=== PATIENT | male | born 1945 | race Caucasian/White ===

== ENCOUNTER → 2016-06-20 | Outpatient (CLI) | payer BC, MEDICARE ==
[~2016-06-20] MED LIST: ACET325T96 PO; ALPHTAB9 PO; AMLO-114 PO; AMX500 PO; ASPI81TA28 PO; ATOR-24 PO; ATV5 PO; BSP15 PO; BXN500 PO; CARB25TA12 PO; CHOL20007 PO; CLC100 PO; COEN150C PO; DSY/150 PO; DSY50 PO; FLM4 PO; GABA-113 PO; GABA1CAP4 PO; GLC/500 PO; LAMO1TAB21 PO; LAMO200T38 PO; LDDP5 TD; LOSA100T65 PO; LTD40 PO; MELA3CAP PO; METH4PAK PO; METO1TAB69 PO; METO1TAB71 PO; MRLP17X PO; MULT-506 PO; NRN300 PO; NRN600 PO; NRV/10 PO; OMEG10007 PO; OXYC-57 PO; PRT40 PO; RISP2TAB22 PO; ROPI2TAB6 PO; RSP3 PO; SYN50 PO; TPM/50 PO; TRAZ100T29 PO
[2016-06-20 18:16] LABS: BLOOD UREA NITROGEN 17 mg/dl (7-18); BUN/CREATININE RATIO 11.6 (10-20); CALCIUM 9.5 mg/dl (8.5-10.1); CARBON DIOXIDE 28 mmol/L (21-32); CHLORIDE 106 mmol/L (98-107); GLUCOSE 94 mg/dl (70-99); POTASSIUM 4.1 mmol/L (3.5-5.1); SODIUM 142 mmol/L (136-145)
[2016-06-20 18:20] LABS: CHOLESTEROL 131 mg/dl (0-200); CHOLESTEROL/HDL RATIO 2.8; HDL CHOLESTEROL 46 mg/dl; LDL CHOLESTEROL CALCULATED 64 mg/dl; TRIGLYCERIDES 104 mg/dl (0-150); VERY LOW DENSITY LIPOPROT CALC 21 mg/dl
[2016-06-21 06:08] LABS: ESTIMATED AVERAGE GLUCOSE 117 mg/dl; HA1C FLAG Normal (Normal)
== END | disposition home or self-care (01) ==
LOC: C.LABBFT 13:38
PROVIDERS: ATTEND Internal Medicine
DX: N20.0 Calculus of kidney (principal); E11.42 Type 2 diabetes mellitus with diabetic polyneuropathy

== ENCOUNTER → 2016-07-21 | Outpatient (CLI) | payer MEDICARE | END | disposition home or self-care (01) | LOC: C.LAB 13:54 | PROVIDERS: ATTEND Internal Medicine | DX: R41.82 Altered mental status, unspecified (principal) ==

== ENCOUNTER → 2016-09-14 | Outpatient (CLI) | payer MEDICARE ==
[~2016-09-14] MED LIST changes: +METO-649 PO; +METO100T44 PO; -METO1TAB69 PO; -METO1TAB71 PO
[2016-09-18 17:57] LABS: ALBUMIN 4.5 G/DL (3.8-4.8); GAMMA GLOBULIN 0.8 G/DL (0.8-1.7); TOTAL PROTEIN 7.2 G/DL (6.2-8.3)
--- NOTE | 2016-10-07 08:33 | CODING QUERY MEDICAL NECESSITY ---
CQSUPPORTING DIAGNOSIS NEEDED A supporting diagnosis is required for the test/procedure performed on this patient in order for us to be reimbursed by the patient's insurance. Please provide a supporting diagnosis for the following test/procedure listed below next to the test name along with your signature. *If there is no additional diagnosis for this patient that would support the following test/procedure please document that below next to the test/procedure. Test(s)/Procedure(s) that require a supporting diagnosis: DOS 09/14/16 SERUM IRON STUDY SCREENING SEXUALLY TRANSMITTED DISEASE Provider Signature: Date: Thank you Annabelle Andres Health Information Management Once completed, please kindly fax back to [phone] For questions please call [phone]
== END | disposition home or self-care (01) ==
LOC: C.LABBFT 15:26
PROVIDERS: ATTEND Psychiatry & Neurology Neurology
DX: R26.9 Unspecified abnormalities of gait and mobility (principal); R41.3 Other amnesia; G25.81 Restless legs syndrome

== ENCOUNTER → 2016-10-02 | Outpatient (CLI) | payer MEDICARE ==
--- NOTE | 2016-10-02 15:27 | DIAGNOSTIC IMAGING REPORT ---
MRI OF THE BRAIN WITHOUT CONTRAST CLINICAL HISTORY: GATE DISTURBANCE, MEMORY CHANGES COMPARISON STUDY: None. FINDINGS: Sagittal T1, axial diffusion, proton density and T2 weighted axial, coronal FLAIR, and axial T1-weighted images were acquired. Imaging was performed in a 0.7 Alize open MRI scanner. No intra or extra-axial mass lesions are visualized Axial diffusion-weighted images reveal no evidence of acute or subacute infarction. There is no evidence of ventricular dilatation. Proton density T2-weighted and FLAIR images reveal scattered foci of increased T2 signal within the white matter, likely on a small vessel basis. There are no abnormal flow voids. There are inflammatory changes within the right maxillary sinus. IMPRESSION: 1. No acute intracranial findings 2. No evidence of intracranial mass 3. No evidence of acute or subacute infarction 4. Inflammatory changes within the right maxillary sinus. Electronically signed by: Homer Alonso M.D. 10/02/2016 3:26 PM Dictated Date/Time: 10/02/2016 3:22 PM
== END | disposition home or self-care (01) ==
LOC: C.OPENMRI 14:30
PROVIDERS: ATTEND Psychiatry & Neurology Neurology
DX: R26.9 Unspecified abnormalities of gait and mobility (principal); R41.3 Other amnesia

== ENCOUNTER 2016-10-03 12:02 | Observation (INO) | payer MEDICARE, OTHER ==
[~2016-10-03] VITALS: Ht 170.2 cm; Wt 99.0 kg
[~2016-10-03 12:02] MED LIST changes: -ACET325T96 PO; -AMX500 PO; -ATV5 PO; -BSP15 PO; -BXN500 PO; -CARB25TA12 PO; -CLC100 PO; -DSY/150 PO; -FLM4 PO; -GABA-113 PO; -GABA1CAP4 PO; -LAMO200T38 PO; -LDDP5 TD; -MELA3CAP PO; -METH4PAK PO; -METO-649 PO; -MRLP17X PO; -NRV/10 PO; -OXYC-57 PO; -PRT40 PO; -RISP2TAB22 PO; -ROPI2TAB6 PO; -RSP3 PO; -TRAZ100T29 PO
[2016-10-03] MEDS ORDERED: ONDANSETRON INJ 2 MG/ML 2 ML VIAL IV STA (12:31)
[2016-10-03] MEDS ORDERED: MoRPHine SULFATE 4 MG/ML 1 ML CARP\\VIAL IV STA ×2 (12:31→16:29)
[2016-10-03 12:52] LABS: BASO % 0.4 %; BASO ABS # 0.03 K/uL (0-0.2); COMPLETE YES; EOS % 1.2 %; HEMATOCRIT 46.6 % (42-52); IG% 0.3 %; LYMPH % 19.5 %; LYMPH ABS # 1.44 K/uL (1.2-3.4); MEAN CELL VOLUME 86.1 fL (80-100); MEAN CORPUSCULAR HEMOGLOBIN 28.3 pg (25-34); MEAN CORPUSCULAR HGB CONC 32.8 g/dl (32-36); MEAN PLATELET VOLUME 7.9 fL (7.4-10.4); MONO % 9.7 %; NEUT % 68.9 %; PLATELET COUNT 165 K/uL (130-400); RED BLOOD COUNT 5.41 M/uL (4.7-6.1); WHITE BLOOD COUNT 7.39 K/uL (4.8-10.8)
[2016-10-03 13:09] LABS: BUN/CREATININE RATIO 13.2 (10-20); CALCIUM 9.2 mg/dl (8.5-10.1); CREATININE 1.4 mg/dl (0.60-1.40)
[2016-10-03] MEDS ORDERED: LAMO200T38 PO (13:17)
[2016-10-03] MEDS ORDERED: MELA3CAP PO (13:17)
[2016-10-03] MEDS ORDERED: GABA-113 PO (13:17)
[2016-10-03] MEDS ORDERED: BSP15 PO (13:17)
[2016-10-03] MEDS ORDERED: METO-649 PO (13:17)
[2016-10-03] MEDS ORDERED: TRAZ100T29 PO (13:17)
[2016-10-03] MEDS ORDERED: ROPI2TAB6 PO (13:17)
[2016-10-03] MEDS ORDERED: RISP2TAB22 PO ×2 (13:17)
--- NOTE | 2016-10-03 13:55 | DIAGNOSTIC IMAGING REPORT ---
CT HEAD WITHOUT CONTRAST (CT) CLINICAL HISTORY: Head trauma. Headache. COMPARISON STUDY: MRI the brain dated 10/02/2016 TECHNIQUE: Axial CT of the brain is performed from the vertex to the skull base. IV contrast was not administered for this examination. CT DOSE: 614.27 mGy.cm FINDINGS: No intra or extra-axial mass lesions are visualized. There is no CT evidence of acute cortical infarction. There is no evidence of midline shift. There is no acute hemorrhage. No calvarial fractures are visualized. There are patchy white matter hypodensities likely on a small vessel basis. There is no evidence of pathologic ventricular dilatation. There is a right maxilla sinus air-fluid level. Slight hyperdensity the right lacrimal gland is likely artifactual. IMPRESSION: No acute intracranial findings Electronically signed by: Homer Alonso M.D. 10/03/2016 1:53 PM Dictated Date/Time: 10/03/2016 1:51 PM
--- NOTE | 2016-10-03 13:56 | DIAGNOSTIC IMAGING REPORT ---
THORACIC SPINE CT CT DOSE: HISTORY: Trauma. Pain. eval for fx TECHNIQUE: Multiaxial CT images of the thoracic spine were performed and reformatted in the sagittal and coronal plane without the use of contrast. COMPARISON: None. FINDINGS: No fractures. No subluxation. Paraspinal soft tissues are unremarkable. Interstitial changes posteriorly in the lower lung regions bilaterally. Degenerative changes of posterior elements. No evidence for compression deformity. Degenerative disc changes throughout. IMPRESSION: Degenerative change throughout the entire thoracic region. No acute bony abnormality. Electronically signed by: Braulio Ayon M.D. 10/03/2016 1:54 PM Dictated Date/Time: 10/03/2016 1:52 PM
--- NOTE | 2016-10-03 15:04 | DIAGNOSTIC IMAGING REPORT ---
CT SCAN OF THE LUMBAR SPINE WITHOUT IV CONTRAST CLINICAL HISTORY: Low back pain. COMPARISON STUDY: Radiographs of the lumbar spine dated 09/20/2015. Abdominal CT dated 03/16/2014. TECHNIQUE: CT scan of the lumbar spine is performed from the lower thoracic spine to the sacrum. Images reviewed in the axial, sagittal, and coronal planes. IV contrast was not administered for this examination. CT DOSE: 1958.68 mGy.cm FINDINGS: The skeletal structures are osteopenic. There is no evidence of fracture or malalignment involving the lumbosacral spine. The transverse and spinous processes are intact. Advanced facet arthropathy is seen throughout the lumbar spine. There is no evidence of spondylolysis. No lytic or blastic lesions are seen. Anterior osteophytes are seen throughout. There are also large lateral marginal osteophytes which appear almost completely fused. Lumbar dextrocurvature may be positional. There is moderate to advanced degenerative disc space narrowing seen at all levels. Posterior disc osteophyte complexes are also present at all levels. There is no evidence of large disc herniation. The visualized sacrum and bony pelvis appear intact. Degenerative change and partial fusion is noted involving the sacroiliac joints. There is moderate atherosclerotic calcification of the abdominal aorta. Mild fatty atrophy is noted in the paraspinous musculature. A 1.4 cm left adrenal adenoma is unchanged. IMPRESSION: 1. There is no evidence of fracture or malalignment involving the lumbosacral spine. 2. Osteopenia and spondylotic change as above. Dictated: 10/03/2016 2:07 PM Transcribed: 10/03/2016 3:04 PM [email or web address] Electronically signed by: Lux Jorgensen M.D. 10/03/2016 3:04 PM Dictated Date/Time: 10/03/2016 2:07 PM
[2016-10-03 16:04] VITALS: O2SAT 93; Ht 170.2 cm; Wt 99.0 kg
--- NOTE | 2016-10-03 16:57 | EMERGENCY ROOM VISIT NOTE ---
History Report prepared by Faraz: Rossana Castro Under the Supervision of: Dr. Akin Easley M.D. First contact with patient: 12:21 Chief Complaint: BACK PAIN Stated Complaint: BACK PAIN History of Present Illness The patient is a 70 year old male who presents to the Emergency Room with complaints of persistent upper back pain that began last evening. He currently rates his discomfort as a 10/10 in severity. The patient states that last evening he was walking out of his bathroom and into his bedroom and after he made the [place] around his bed, he lost his balance and fell. He states that he landed on his back. The patient notes bilateral shoulder pain today, noting that his right is more painful than his left. He states that he is experiencing upper back pain between his shoulders, but denies any lower back pain. The patient states that his pain is worsened with movement. He denies any headache, neck pain, numbness or weakness in the extremities, or hip pain. The patient denies any difficulty moving his arms. He denies being on any blood thinners. The patient denies any depression or suicidal ideation. Source of History: patient Onset: last evening Position: back (upper) Symptom Intensity: 10/10 Timing: other (persistent) Modifying Factors (Worsening): movement Associated Symptoms: No headache, No neck pain, No numbness Note: Associated Symptoms: bilateral shoulder pain. Review of Systems See HPI for pertinent positives & negatives. A total of 10 systems reviewed and were otherwise negative. Past Medical & Surgical Medical Problems: (1) Diabetes (2) HTN (hypertension) (3) Hyperlipidemia (4) Suicide attempt by acetaminophen overdose Family History Patient reports no known family medical history. Social History Smoking Status: Former Smoker Alcohol Use: none Drug Use: none Housing Status: assisted living Occupation Status: retired Current/Historical Medications Scheduled Amlodipine (Norvasc), 10 MG PO QAM Atorvastatin (Lipitor), 40 MG PO QPM Buspirone HCl (Buspirone HCl), 15 MG PO TID Gabapentin (Gabapentin), 600 MG PO HS Gabapentin (Neurontin), 300 MG PO TID Lamotrigine (Lamictal), 200 MG PO BID Levothyroxine Sodium (Synthroid), 50 MCG PO QAM Losartan Potassium (Cozaar), 100 MG PO QAM Melatonin (Melatonin), 3 MG PO HS Metoprolol Succinate (Toprolxl (Toprol-Xl), 200 MG PO DAILY Multivitamin (Multivitamin), 1 TAB PO QAM Risperidone (Risperdal), 2 MG PO QAM Risperidone (Risperdal), 4 MG PO QPM Ropinirole (Requip), 2 MG PO HS Scheduled PRN Trazodone HCl (Trazodone HCl), 50 MG PO HS PRN for INSOMNIA Trazodone Hcl (Trazodone), 100 MG PO HS PRN for Insomnia Allergies Coded Allergies: Pregabalin (Unverified Allergy, Severe, SUICIDAL, 10/03/16) Celecoxib (Verified Allergy, Unknown, RASH, 10/03/16) Ibuprofen (Verified Allergy, Unknown, RASH, 10/03/16) Quetiapine (Unverified Allergy, Unknown, UNKNOWN, 10/03/16) Physical Exam Vital Signs Date Time Temp Pulse Resp B/P Pulse Ox O2 Delivery O2 Flow Rate FiO2 10/03/16 16:24 58 18 121/75 94 Nasal Cannula 2.0 10/03/16 16:12 63 10/03/16 16:04 93 Nasal Cannula 2.0 10/03/16 13:54 58 16 105/67 93 Nasal Cannula 2.0 10/03/16 13:06 88 Room Air 10/03/16 13:06 91 Nasal Cannula 2.0 10/03/16 12:54 60 18 109/65 92 Room Air 10/03/16 12:17 65 10/03/16 12:08 37.1 70 14 127/63 94 Room Air Physical Exam Constitutional: Vital signs reviewed. Eyes: Pupils are equal round reactive to light. Conjunctiva are noninjected. ENT: Pharynx is clear without erythema or exudate. Mucous membranes are moist. Neck supple without meningeal signs. Respiratory: Clear to auscultation bilaterally. Breath sounds are equal bilaterally. Cardiovascular: Regular rate and rhythm. No rubs or gallops. GI: Soft, nondistended and nontender. Bowel sounds are present. Musculoskeletal: No midline tenderness spine, no tenderness to the hips, upper or lower extremities. Mild tenderness to the lower thoracic and upper lumbar spine without step off or deformity. Integumentary: No cyanosis. Neurologic: The patient is awake and alert. Cranial nerves II-XII are intact. Motor is 5 out of 5 all extremities. Sensation is intact to light touch all extremities. Normal speech. No pronator drift. Psychiatric: Normal affect. Medical Decision & Procedures ER Provider Diagnostic Interpretation: CT results as stated below per my review and radiologist interpretation. THORACIC SPINE CT CT DOSE: HISTORY: Trauma. Pain. eval for fx TECHNIQUE: Multiaxial CT images of the thoracic spine were performed and reformatted in the sagittal and coronal plane without the use of contrast. COMPARISON: None. FINDINGS: No fractures. No subluxation. Paraspinal soft tissues are unremarkable. Interstitial changes posteriorly in the lower lung regions bilaterally. Degenerative changes of posterior elements. No evidence for compression deformity. Degenerative disc changes throughout. IMPRESSION: Degenerative change throughout the entire thoracic region. No acute bony abnormality. Electronically signed by: Braulio Ayon M.D. 10/03/2016 1:54 PM Dictated Date/Time: 10/03/2016 1:[address] SCAN OF THE LUMBAR SPINE WITHOUT IV CONTRAST CLINICAL HISTORY: Low back pain. COMPARISON STUDY: Radiographs of the lumbar spine dated 09/20/2015. Abdominal CT dated 03/16/2014. TECHNIQUE: CT scan of the lumbar spine is performed from the lower thoracic spine to the sacrum. Images reviewed in the axial, sagittal, and coronal planes. IV contrast was not administered for this examination. CT DOSE: 1958.68 mGy.cm FINDINGS: The skeletal structures are osteopenic. There is no evidence of fracture or malalignment involving the lumbosacral spine. The transverse and spinous processes are intact. Advanced facet arthropathy is seen throughout the lumbar spine. There is no evidence of spondylolysis. No lytic or blastic lesions are seen. Anterior osteophytes are seen throughout. There are also large lateral marginal osteophytes which appear almost completely fused. Lumbar dextrocurvature may be positional. There is moderate to advanced degenerative disc space narrowing seen at all levels. Posterior disc osteophyte complexes are also present at all levels. There is no evidence of large disc herniation. The visualized sacrum and bony pelvis appear intact. Degenerative change and partial fusion is noted involving the sacroiliac joints. There is moderate atherosclerotic calcification of the abdominal aorta. Mild fatty atrophy is noted in the paraspinous musculature. A 1.4 cm left adrenal adenoma is unchanged. IMPRESSION: 1. There is no evidence of fracture or malalignment involving the lumbosacral spine. 2. Osteopenia and spondylotic change as above. Dictated: 10/03/2016 2:07 PM Transcribed: 10/03/2016 3:04 PM [email or web address] Electronically signed by: Lux Jorgensen M.D. 10/03/2016 3:04 PM Dictated Date/Time: 10/03/2016 2:[address] HEAD WITHOUT CONTRAST (CT) CLINICAL HISTORY: Head trauma. Headache. COMPARISON STUDY: MRI the brain dated 10/02/2016 TECHNIQUE: Axial CT of the brain is performed from the vertex to the skull base. IV contrast was not administered for this examination. CT DOSE: 614.27 mGy.cm FINDINGS: No intra or extra-axial mass lesions are visualized. There is no CT evidence of acute cortical infarction. There is no evidence of midline shift. There is no acute hemorrhage. No calvarial fractures are visualized. There are patchy white matter hypodensities likely on a small vessel basis. There is no evidence of pathologic ventricular dilatation. There is a right maxilla sinus air-fluid level. Slight hyperdensity the right lacrimal gland is likely artifactual. IMPRESSION: No acute intracranial findings Electronically signed by: Homer Alonso M.D. 10/03/2016 1:53 PM Dictated Date/Time: 10/03/2016 1:51 PM Laboratory Results 10/03/16 12:45 Red Blood Count 5.41, Mean Corpuscular Volume 86.1, Mean Corpuscular Hemoglobin 28.3, Mean Corpuscular Hemoglobin Concent 32.8, Mean Platelet Volume 7.9, Neutrophils (%) (Auto) 68.9, Lymphocytes (%) (Auto) 19.5, Monocytes (%) (Auto) 9.7, Eosinophils (%) (Auto) 1.2, Basophils (%) (Auto) 0.4, Neutrophils # (Auto) 5.09, Lymphocytes # (Auto) 1.44, Monocytes # (Auto) 0.72, Eosinophils # (Auto) 0.09, Basophils # (Auto) 0.03 10/03/16 12:45 Test 10/03/16 12:45 White Blood Count 7.39 K/uL (4.8-10.8) Red Blood Count 5.41 M/uL (4.7-6.1) Hemoglobin 15.3 g/dL (14.0-18.0) Hematocrit 46.6 % (42-52) Mean Corpuscular Volume 86.1 fL (80-100) Mean Corpuscular Hemoglobin 28.3 pg (25-34) Mean Corpuscular Hemoglobin Concent 32.8 g/dl (32-36) Platelet Count 165 K/uL (130-400) Mean Platelet Volume 7.9 fL (7.4-10.4) Neutrophils (%) (Auto) 68.9 % Lymphocytes (%) (Auto) 19.5 % Monocytes (%) (Auto) 9.7 % Eosinophils (%) (Auto) 1.2 % Basophils (%) (Auto) 0.4 % Neutrophils # (Auto) 5.09 K/uL (1.4-6.5) Lymphocytes # (Auto) 1.44 K/uL (1.2-3.4) Monocytes # (Auto) 0.72 K/uL (0.11-0.59) Eosinophils # (Auto) 0.09 K/uL (0-0.5) Basophils # (Auto) 0.03 K/uL (0-0.2) RDW Standard Deviation 41.7 fL (36.4-46.3) RDW Coefficient of Variation 13.2 % (11.5-14.5) Immature Granulocyte % (Auto) 0.3 % Immature Granulocyte # (Auto) 0.02 K/uL (0.00-0.02) Anion Gap 6.0 mmol/L (3-11) Est Creatinine Clear Calc Drug Dose 55.0 ml/min Estimated GFR () 58.6 Estimated GFR (Non- 50.5 BUN/Creatinine Ratio 13.2 (10-20) Calcium Level 9.2 mg/dl (8.5-10.1) Laboratory results as reviewed by me. Medications Administered Medications (Trade) Dose Ordered Sig/[place] Route Start Time Stop Time Status Last Admin Dose Admin Morphine Sulfate (MoRPHine SULFATE INJ) 4 mg NOW STAT IV 10/03/16 12:31 10/03/16 12:34 DC 10/03/16 12:53 4 MG Ondansetron HCl (Zofran Inj) 4 mg NOW STAT IV 10/03/16 12:31 10/03/16 12:34 DC 10/03/16 12:52 4 MG Morphine Sulfate (MoRPHine SULFATE INJ) 4 mg NOW STAT IV 10/03/16 16:29 10/03/16 16:37 DC 10/03/16 16:41 4 MG ED Course 1225: The patient was evaluated in room C11B. A complete history and physical exam was performed. 1231: Ordered Zofran Inj 4 mg IV, Morphine Sulfate 4 mg IV. 1408: I reevaluated the patient and he is feeling better now. He notes only pain with movement. 1452: I reevaluated the patient and he cannot move off of the bed. I discussed all the exam findings with him and I discussed the treatment plan. He verbalized complete understanding and agreement. He will be evaluated for further treatment. 1513: I discussed the patients case with TRICIA Santiago. He is going to evaluate the patient for further treatment. Medical Decision This is a 70-year-old male who presents with back pain after a mechanical fall yesterday. Differential diagnosis includes strain, compression fracture, pathologic fracture, intervertebral disc disease, spinal stenosis. I did perform a limited focused review of portions of the patient's old chart on the electronic medical record. The patient was admitted in November of last year for an intentional overdose Ambien and Wheeler. He has a history of bipolar disorder. I did evaluate the patient as noted above. The patient had a mechanical fall yesterday. He is presenting with pain to his back and difficulty ambulating. IV access was established. I did treat him with IV morphine and Zofran. I did order and review the patient's blood work as noted in the electronic medical record. I did order a CT of the head and spine. I did review the images myself as well as the radiology report as described above. There is no evidence of intracranial hemorrhage. There is no evidence of acute fracture or dislocation. I did attempt to ambulate the patient but he was unable. Any type of movement made his pain much worse. I did talk to the patient about placement at [facility] but the case management assistant stated that he could not go to [facility]. He will therefore be hospitalized for pain control and further care. I did discuss the case with the hospitalist. Consults Time Called: [phone] Consulting Physician: TRICIA Santiago Returned Call: [phone] I discussed the patients case with TRICIA Santiago. He is going to evaluate the patient for further treatment. Impression Primary Impression: Low back pain Additional Impressions: Fall Ambulatory dysfunction Acute head injury Scribe Attestation The scribe's documentation has been prepared under my direct and personally reviewed by me in its entirety. I confirm that the note above accurately reflects all work, treatment, procedures, and medical decision making performed by me. Departure Information Dispostion Being Evaluated By Hospitalist Rich Avendaño M.D. (PCP) Problem Qualifiers Primary Impression: Low back pain Chronicity: acute Back pain laterality: midline Sciatica presence: without sciatica Qualified Codes: M54.5 - Low back pain Additional Impressions: Fall Encounter type: initial encounter Qualified Codes: W19.XXXA - Unspecified fall, initial encounter Acute head injury Encounter type: initial encounter Qualified Codes: S09.90XA - Unspecified injury of head, initial encounter
[2016-10-03] MEDS ORDERED: ACETAMINOPHEN 325 MG TAB PO PRN (17:30)
[2016-10-03] MEDS ORDERED: ALUMINUM/MAGNESIUM/SIMETH (MAALOX MAX) 30 ML UDC PO PRN (17:30)
[2016-10-03] MEDS ORDERED: MoRPHine SULFATE 4 MG/ML 1 ML CARP\\VIAL IV PRN (17:30)
[2016-10-03] MEDS ORDERED: POLYETHYLENE (MIRALAX) 17 GM PACK PO PRN (17:30)
[2016-10-03] MEDS ORDERED: ONDANSETRON INJ 2 MG/ML 2 ML VIAL IV PRN (17:30)
--- NOTE | 2016-10-03 17:39 | History and Physical ---
History & Physical Date & Time of Service: October 03, 2016 at 17:08 Chief Complaint: Back Pain Primary Care Physician: Rich Narvaez M.D. History of Present Illness Source: patient 70 male with PMH of spinal stenosis presented to [facility] after falling at home. He has a right upper back pain that started last night, it is sharp in nature, does not radiate, is made worse by movement and he rates the pain as a 10/10 in severity Last night the patient was walking back to his bed after walking to the toilet and slipped and fell on his back. His then phoned the ambulance and had the patient brought to the hospital. Before the fall occurred the patient denies any headache, dizziness, nausea, vomiting, palpitations, chest pain, light headedness or visual changes After the fall the patient denies any urinary incontinence, bowel incontinence, biting of tongue, confusion or altered mental status. He says that throughout the event he was conscious. Over the past year the patient notes he has become progressively weaker in his legs and his mobility has been limited. He was planning on going to physical therapy yesterday, but did not end up going. He did get an MRI as an outpatient yesterday which did not show any acute changes. Past Medical/Surgical History Medical Problems: (1) Diabetes Status: Chronic (2) HTN (hypertension) Status: Chronic (3) Hyperlipidemia Status: Chronic Bipolar Hypothyroidism Spinal Stenosis Restless leg syndrome Family History Patient reports no known family medical history. Social History Smoking Status: Former Smoker (10 year pack history) Drug Use: none Marital Status: Housing status: lives with significant other Occupational Status: retired Multi-Drug Resistant Organisms History of MDRO: No Allergies Coded Allergies: Pregabalin (Unverified Allergy, Severe, SUICIDAL, 10/03/16) Celecoxib (Verified Allergy, Unknown, RASH, 10/03/16) Ibuprofen (Verified Allergy, Unknown, RASH, 10/03/16) Quetiapine (Unverified Allergy, Unknown, UNKNOWN, 10/03/16) Home Medications Scheduled Amlodipine (Norvasc), 10 MG PO QAM Atorvastatin (Lipitor), 40 MG PO QPM Buspirone HCl (Buspirone HCl), 15 MG PO TID Gabapentin (Gabapentin), 600 MG PO HS Gabapentin (Neurontin), 300 MG PO TID Lamotrigine (Lamictal), 200 MG PO BID Levothyroxine Sodium (Synthroid), 50 MCG PO QAM Losartan Potassium (Cozaar), 100 MG PO QAM Melatonin (Melatonin), 3 MG PO HS Metoprolol Succinate (Toprolxl (Toprol-Xl), 200 MG PO DAILY Multivitamin (Multivitamin), 1 TAB PO QAM Risperidone (Risperdal), 2 MG PO QAM Risperidone (Risperdal), 4 MG PO QPM Ropinirole (Requip), 2 MG PO HS Scheduled PRN Trazodone HCl (Trazodone HCl), 50 MG PO HS PRN for INSOMNIA Trazodone Hcl (Trazodone), 100 MG PO HS PRN for Insomnia Review of Systems Constitutional: No chills, No fever, No sweats Eyes: No eye pain, No worsening of vision Respiratory: No cough, No dyspnea on exertion, No shortness of breath, No sputum Cardiovascular: No chest pain, No claudication, No orthopnea, No palpitations Abdomen: No nausea, No pain, No vomiting Musculoskeletal: + joint pain (upper back), + muscle pain (upper back) Neurologic: + balance problems, + numbness/tingling (lower limb numbness bilaterally), + weakness Physical Exam Vital Signs Date Time Temp Pulse Resp B/P Pulse Ox O2 Delivery O2 Flow Rate FiO2 10/03/16 16:24 58 18 121/75 94 Nasal Cannula 2.0 10/03/16 16:12 63 10/03/16 16:04 93 Nasal Cannula 2.0 10/03/16 13:54 58 16 105/67 93 Nasal Cannula 2.0 10/03/16 13:06 88 Room Air 10/03/16 13:06 91 Nasal Cannula 2.0 10/03/16 12:54 60 18 109/65 92 Room Air 10/03/16 12:17 65 10/03/16 12:08 37.1 70 14 127/63 94 Room Air General Appearance: + moderate distress, + pertinent finding (patient laying in bed in a lot of pain, wincing when talking) Head: normocephalic, atraumatic Neck: no adenopathy, no JVD, no carotid bruits, trachea midline Respiratory/Chest: lungs clear, normal breath sounds, no respiratory distress, no accessory muscle use Cardiovascular: regular rate, rhythm, no JVD, normal peripheral pulses Abdomen/GI: normal bowel sounds, non tender, soft Back: + pertinent finding (patient in too much pain to do full spinal exam. pain to superficial palpation over scapula on right side) Extremities/Musculoskelatal: no calf tenderness, normal capillary refill, no pedal edema Neurologic/Psych: alert, oriented x 3, + motor weakness (4/5 power in right and left lower extremity), + sensory deficit (decreased sensation up to mid akers bilaterally) Skin: normal color, warm/dry, no rash Diagnostics Laboratory Results Results Past 24 Hours Test 10/03/16 12:45 Range/Units White Blood Count 7.39 4.8-10.8 K/uL Red Blood Count 5.41 4.7-6.1 M/uL Hemoglobin 15.3 14.0-18.0 g/dL Hematocrit 46.6 42-52 % Mean Corpuscular Volume 86.1 80-100 fL Mean Corpuscular Hemoglobin 28.3 25-34 pg Mean Corpuscular Hemoglobin Concent 32.8 32-36 g/dl Platelet Count 165 130-400 K/uL Mean Platelet Volume 7.9 7.4-10.4 fL Neutrophils (%) (Auto) 68.9 % Lymphocytes (%) (Auto) 19.5 % Monocytes (%) (Auto) 9.7 % Eosinophils (%) (Auto) 1.2 % Basophils (%) (Auto) 0.4 % Neutrophils # (Auto) 5.09 1.4-6.5 K/uL Lymphocytes # (Auto) 1.44 1.2-3.4 K/uL Monocytes # (Auto) 0.72 0.11-0.59 K/uL Eosinophils # (Auto) 0.09 0-0.5 K/uL Basophils # (Auto) 0.03 0-0.2 K/uL RDW Standard Deviation 41.7 36.4-46.3 fL RDW Coefficient of Variation 13.2 11.5-14.5 % Immature Granulocyte % (Auto) 0.3 % Immature Granulocyte # (Auto) 0.02 0.00-0.02 K/uL Sodium Level 142 136-145 mmol/L Potassium Level 4.0 3.5-5.1 mmol/L Chloride Level 108 98-107 mmol/L Carbon Dioxide Level 28 21-32 mmol/L Anion Gap 6.0 3-11 mmol/L Blood Urea Nitrogen 19 7-18 mg/dl Creatinine 1.40 0.60-1.40 mg/dl Est Creatinine Clear Calc Drug Dose 55.0 ml/min Estimated GFR () 58.6 Estimated GFR (Non- 50.5 BUN/Creatinine Ratio 13.2 10-20 Random Glucose 147 70-99 mg/dl Calcium Level 9.2 8.5-10.1 mg/dl Diagnostic Radiology CT head IMPRESSION: No acute intracranial findings CT lumbar spine Anterior osteophytes are seen throughout. There are also large lateral marginal osteophytes which appear almost completely fused. Lumbar dextrocurvature may be positional. There is moderate to advanced degenerative disc space narrowing seen at all levels. Posterior disc osteophyte complexes are also present at all levels. CT thoracic spine Degenerative disc changes throughout. Impression Assessment and Plan 70 M with PMH of spinal stenosis, HTN, HLD, Bipolar, Hypothyroid, RLS and previous diabetes that presented to [facility] after falling at home Patient had CT lumbar and thoracic spine which didn't show any acute pathology but did show significant degenerative changes in the spine throughout. Currently his pain is worse with movement and is most likely musculoskeletal in nature. Back pain - Morphine 4mg Q4 PRN - Zofran 4mg Q4 PRN - Lidocaine patch to affected area - PT/OT consult - Rehab after patient has recovered - Will likely need surgical referral as outpatient for further management of lumbar stenosis and leg weakness HTN - continue amlodipine, losartan, metoprolol HLD - continue atorvastatin Hypothyroidism - continue levothyroxine RLS - continue ropinirole Bipolar - Continue risperidone and lamotrigine - check all scripts for regular dosage Hx of Diabetes - check Hba1c Dispo - Rehab for continued outpatient physical therapist Physician Supervision Note: I interviewed and examined the patient. Discussed with Dr. Justice and agree with findings and plan as documented in the note. Any exceptions or clarifications are listed here: None Documented By: Franklin Crocker back pain - R periscapular after fall leg weakness ongoing chronic ros otherwise negative except for as above vitals noted, appearing moderately uncomfortable, R sided periscapular muscles high tone/tender/decreased ROM - inhibitory pressure and gentle LAS - improved, tissue texture improved/pt tolerated well/possible small improvement in pain, exam otherwise as above a/p fall - appearing mechanical w weakness - PT/OT, ?rehab back pain - fortunately looking muscular - as above, as well as OMT thoracic region somatic dysfunction - OMT as above leg weakness - ?spinal stenosis related. outpt eval for spine (although doubtful surgical candidate) -- if not surgical candidate would then strongly consider decompression therapy and eval for injections otherwise as above Level of Care Med/Surg Advanced Directives Existing Living Will: No Existing Power of Sales Clerk Food: No VTE Prophylaxis VTE Risk Assessment Done? Y/N: Yes Risk Level: Moderate Given or contraindicated: Enoxaparin (Lovenox)SQ
[2016-10-03] MEDS ORDERED: TRAZODONE HCL 50 MG TAB PO PRN (17:45)
[2016-10-03] MEDS ORDERED: IV FLUIDS COMPLETED PRN (17:45)
[2016-10-03] MEDS: BusPIRone 15 MG TAB PO SCH (21:10)
[2016-10-03] MEDS: ROPINIROLE HCL 1 MG TAB PO SCH (21:11)
[2016-10-03] MEDS: RISPERIDONE 2 MG TAB PO SCH (21:11)
[2016-10-03] MEDS: GABAPENTIN 300 MG CAP PO SCH (21:12)
[2016-10-03] MEDS: GABAPENTIN 600 MG TAB PO SCH (21:13)
[2016-10-03] MEDS: ATORVASTATIN 20 MG TAB PO SCH (21:14)
[2016-10-03] MEDS: ENOXAPARIN 40 MG/0.4 ML SYR SQ SCH (21:15)
[2016-10-03 23:51] VITALS: BP_SYST 109; BP_SYST 120; BP_SYST 123; BP_DIAS 71; BP_DIAS 77; PULSE 59; PULSE 62; TEMP 36.4; O2SAT 95
[2016-10-04] MEDS: TRAZODONE HCL 100 MG TAB PO PRN ×2 (00:15→23:22)
[2016-10-04] MEDS: LEVOTHYROXINE 50 MCG TAB PO SCH (06:03)
[2016-10-04 06:23] LABS: HEMATOCRIT 46.4 % (42-52); MEAN CELL VOLUME 88.4 fL (80-100); MEAN CORPUSCULAR HGB CONC 32.8 g/dl (32-36); MEAN PLATELET VOLUME 8.5 fL (7.4-10.4); PLATELET COUNT 164 K/uL (130-400); RED BLOOD COUNT 5.25 M/uL (4.7-6.1); WHITE BLOOD COUNT 7.33 K/uL (4.8-10.8)
[2016-10-04 07:27] VITALS: BP 114/71; PULSE 63; TEMP 36.9; O2SAT 92
[2016-10-04 07:47] LABS: ESTIMATED AVERAGE GLUCOSE 117 mg/dl; HA1C FLAG Normal (Normal)
[2016-10-04] MEDS: GABAPENTIN 300 MG CAP PO SCH ×3 (08:21→19:17)
[2016-10-04] MEDS: LIDODERM (LIDOCAINE) PATCH 5% TD SCH (08:21)
[2016-10-04] MEDS: BusPIRone 15 MG TAB PO SCH ×3 (08:21→19:16)
[2016-10-04] MEDS: AMLODIPINE BESYLATE 5 MG TAB PO SCH (08:22)
[2016-10-04] MEDS: METOPROLOL SUCC 50MG EXT REL TAB PO SCH (08:22)
[2016-10-04] MEDS: MULTIVITAMIN TAB PO SCH (08:22)
[2016-10-04] MEDS: LOSARTAN POTASSIUM 50 MG TAB PO SCH (08:22)
[2016-10-04] MEDS: RISPERIDONE 2 MG TAB PO SCH ×2 (08:23→20:32)
--- NOTE | 2016-10-04 08:49 | Family Medicine Progress Note ---
Progress Note Date of Service October 04, 2016. Subjective Pt evaluation today including: conversation w/ patient, physical exam, chart review, conversation w/ cosmetic sales consultant, review of inpatient medication list Pain: well controlled PO Intake: minimal Patient with no acute events overnight Patient able to answer in one word answers. Currently denies any pain in his shoulder. He says the pain comes and goes, and it is currently relieved by morphine when he gets it. We are awaiting physical therapy in order to decide where he will need to be place for rehab Patient denies any fevers, night sweats, chills, shortness of breath, chest pain or palpitations Additional Comments: see notes for ROS Medications Current Inpatient Medications Medications (Trade) Dose Ordered Sig/Catarina Route Start Time Stop Time Status Last Admin Dose Admin Enoxaparin Sodium (Lovenox Inj) 40 mg Q24H SQ 10/03/16 20:00 11/02/16 19:59 10/03/16 21:15 40 MG Acetaminophen (Tylenol Tab) 650 mg Q4H PRN PO 10/03/16 17:30 11/02/16 17:29 Al Hydrox/Mg Hydrox/Simethicone (Maalox Max Susp) 15 ml Q4H PRN PO 10/03/16 17:30 11/02/16 17:29 Magnesium Hydroxide (Milk Of Magnesia Susp) 30 ml Q6H PRN PO 10/03/16 17:30 11/02/16 17:29 Polyethylene (Miralax Powder Packet) 17 gm DAILY PRN PO 10/03/16 17:30 11/02/16 17:29 Ondansetron HCl (Zofran Inj) 4 mg Q6H PRN IV 10/03/16 17:30 11/02/16 17:29 Lidocaine (Lidoderm Patch 5%) 1 patch QAM TD 10/04/16 08:00 11/03/16 08:59 10/04/16 08:21 1 PATCH Miscellaneous (Remove Lidoderm Patch) 1 ea DAILY@21 N/A 10/03/16 21:00 11/02/16 20:59 Morphine Sulfate (MoRPHine SULFATE INJ) 4 mg Q4 PRN IV 10/03/16 17:30 10/17/16 17:29 Amlodipine Besylate (Norvasc Tab) 10 mg QAM PO 10/04/16 08:00 11/03/16 08:59 10/04/16 08:22 10 MG Atorvastatin Calcium (Lipitor Tab) 40 mg QPM PO 10/03/16 21:00 11/02/16 20:59 10/03/16 21:14 40 MG Buspirone HCl (BusPAR TAB) 15 mg TID PO 10/03/16 20:00 11/02/16 20:59 10/04/16 08:21 15 MG Gabapentin (Neurontin Tab) 600 mg HS PO 10/03/16 21:00 11/02/16 20:59 10/03/16 21:13 600 MG Gabapentin (Neurontin Cap) 300 mg TID PO 10/03/16 20:00 11/02/16 20:59 10/04/16 08:21 300 MG Lamotrigine (Lamictal Tab) 200 mg BID PO 10/03/16 20:00 11/02/16 20:59 10/04/16 08:22 200 MG Levothyroxine Sodium (Synthroid Tab) 50 mcg DAILYBB PO 10/04/16 06:30 11/03/16 06:29 10/04/16 06:03 50 MCG Losartan Potassium (coZAAR TAB) 100 mg QAM PO 10/04/16 08:00 11/03/16 08:59 10/04/16 08:22 100 MG Metoprolol Succinate (Toprol Xl Tab) 200 mg DAILY PO 10/04/16 08:00 11/03/16 08:59 10/04/16 08:22 200 MG Multivitamins (Multivitamin Tab) 1 tab QAM PO 10/04/16 08:00 11/03/16 08:59 10/04/16 08:22 1 TAB Risperidone (Risperdal Tab) 2 mg QAM PO 10/04/16 08:00 11/03/16 08:59 10/04/16 08:23 2 MG Risperidone (Risperdal Tab) 4 mg QPM PO 10/03/16 21:00 11/02/16 20:59 10/03/16 21:11 4 MG Ropinirole HCl (Requip Tab) 2 mg HS PO 10/03/16 21:00 11/02/16 20:59 10/03/16 21:11 2 MG Trazodone HCl (Desyrel Tab) 50 mg HS PRN PO 10/03/16 17:45 11/02/16 17:44 Trazodone HCl (Desyrel Tab) 100 mg HS PRN PO 10/03/16 17:45 11/02/16 17:44 10/04/16 00:15 100 MG Miscellaneous (Iv Fluids Completed) 1 ea PRN PRN N/A 10/03/16 17:45 10/03/17 17:44 Objective Vital Signs Date Time Temp Pulse Resp B/P Pulse Ox O2 Delivery O2 Flow Rate FiO2 10/04/16 07:27 36.9 63 20 114/71 92 10/04/16 00:00 Nasal Cannula 2.0 10/03/16 23:51 36.4 59 109/71 95 2.0 62 123/77 62 120/77 10/03/16 20:00 Nasal Cannula 2.0 10/03/16 17:38 58 18 98/62 94 Nasal Cannula 2.0 10/03/16 16:24 58 18 121/75 94 Nasal Cannula 2.0 10/03/16 16:12 63 10/03/16 16:04 93 Nasal Cannula 2.0 10/03/16 13:54 58 16 105/67 93 Nasal Cannula 2.0 10/03/16 13:06 88 Room Air 10/03/16 13:06 91 Nasal Cannula 2.0 10/03/16 12:54 60 18 109/65 92 Room Air 10/03/16 12:17 65 10/03/16 12:08 37.1 70 14 127/63 94 Room Air Physical Exam General Appearance: + mild distress, + pertinent finding (patient lying at 70 degree angle in bed, very slow to respond and with eyes closed, appears sweaty but in no acute distress) Respiratory/Chest: lungs clear, no respiratory distress, no accessory muscle use Cardiovascular: regular rate, rhythm, no JVD, no murmur Extremities: no pedal edema, no calf tenderness, + pertinent finding (pain to palpation at right scapula, patient has right arm in flexed position and is only minimally able to move it) Laboratory Results Results Past 24 Hours Test 10/03/16 12:45 10/04/16 05:35 Range/Units White Blood Count 7.39 7.33 4.8-10.8 K/uL Red Blood Count 5.41 5.25 4.7-6.1 M/uL Hemoglobin 15.3 15.2 14.0-18.0 g/dL Hematocrit 46.6 46.4 42-52 % Mean Corpuscular Volume 86.1 88.4 80-100 fL Mean Corpuscular Hemoglobin 28.3 29.0 25-34 pg Mean Corpuscular Hemoglobin Concent 32.8 32.8 32-36 g/dl Platelet Count 165 164 130-400 K/uL Mean Platelet Volume 7.9 8.5 7.4-10.4 fL Neutrophils (%) (Auto) 68.9 % Lymphocytes (%) (Auto) 19.5 % Monocytes (%) (Auto) 9.7 % Eosinophils (%) (Auto) 1.2 % Basophils (%) (Auto) 0.4 % Neutrophils # (Auto) 5.09 1.4-6.5 K/uL Lymphocytes # (Auto) 1.44 1.2-3.4 K/uL Monocytes # (Auto) 0.72 0.11-0.59 K/uL Eosinophils # (Auto) 0.09 0-0.5 K/uL Basophils # (Auto) 0.03 0-0.2 K/uL RDW Standard Deviation 41.7 43.7 36.4-46.3 fL RDW Coefficient of Variation 13.2 13.4 11.5-14.5 % Immature Granulocyte % (Auto) 0.3 % Immature Granulocyte # (Auto) 0.02 0.00-0.02 K/uL Sodium Level 142 136-145 mmol/L Potassium Level 4.0 3.5-5.1 mmol/L Chloride Level 108 98-107 mmol/L Carbon Dioxide Level 28 21-32 mmol/L Anion Gap 6.0 3-11 mmol/L Blood Urea Nitrogen 19 7-18 mg/dl Creatinine 1.40 0.60-1.40 mg/dl Est Creatinine Clear Calc Drug Dose 55.0 ml/min Estimated GFR () 58.6 Estimated GFR (Non- 50.5 BUN/Creatinine Ratio 13.2 10-20 Random Glucose 147 70-99 mg/dl Calcium Level 9.2 8.5-10.1 mg/dl Estimated Average Glucose 117 mg/dl Hemoglobin A1c 5.7 4.5-5.6 % Assessment and Plan 70 M with PMH of spinal stenosis, HTN, HLD, Bipolar, Hypothyroid, RLS and previous diabetes that presented to [facility] after falling at home Patient had CT lumbar and thoracic spine which didn't show any acute pathology but did show significant degenerative changes in the spine throughout. Currently his pain is worse with movement and is most likely musculoskeletal in nature. Awaiting for PT evaluation before placement of patient to a rehab facility Back pain - Morphine 4mg Q4 PRN - has had one dose. - Zofran 4mg Q4 PRN - Lidocaine patch to affected area - PT/OT consult - ? need for surgical referral as outpatient for further management of lumbar stenosis and leg weakness HTN - continue amlodipine, losartan, metoprolol HLD - continue atorvastatin Hypothyroidism - continue levothyroxine RLS - continue ropinirole Bipolar - Continue risperidone and lamotrigine Hx of Diabetes - HbA1c is 5.7 Dispo - Rehab for continued physical therapy Continued [facility] stay due to: home environment unsafe for pt Reviewed: Pt Seen/Exam by Me History somnolent when visited. unable to answer any questions. Constitutional: denies: fever General Appearance: other (somnolent) Respiratory: lungs clear, no respiratory distress Cardiovascular: regular rate, rhythm Gastrointestinal: normal bowel sounds, non tender, soft Neurologic/Psychiatric: other (somnolent) Skin Characteristics: warm/dry Assessment/Plan I have reviewed the medical record and performed a history and physical examination of this patient today. I have discussed the case with Dr. Justice. The above note reflects my findings, conclusions, and recommendations.
[2016-10-04 14:51] VITALS: BP 82/55; PULSE 63; TEMP 36.6; O2SAT 94
[2016-10-04 15:10] VITALS: BP_SYST 102; BP_SYST 68; BP_DIAS 42; BP_DIAS 62; PULSE 56; PULSE 58; O2SAT 95
[2016-10-04 15:30] VITALS: O2SAT 95
[2016-10-04 15:55] VITALS: BP 101/64; PULSE 58; O2SAT 95
[2016-10-04] MEDS: ENOXAPARIN 40 MG/0.4 ML SYR SQ SCH (19:17)
[2016-10-04] MEDS: ATORVASTATIN 20 MG TAB PO SCH (20:31)
[2016-10-04] MEDS: ROPINIROLE HCL 1 MG TAB PO SCH (20:31)
[2016-10-04] MEDS: GABAPENTIN 600 MG TAB PO SCH (20:32)
[2016-10-05 00:22] VITALS: BP 92/55; PULSE 52; TEMP 36.4; O2SAT 90
[2016-10-05] MEDS: LEVOTHYROXINE 50 MCG TAB PO SCH (06:03)
[2016-10-05 07:54] VITALS: BP 121/72; PULSE 56; TEMP 36.3; O2SAT 93
[2016-10-05 08:30] VITALS: PULSE 65; O2SAT 91
[2016-10-05] MEDS: BusPIRone 15 MG TAB PO SCH ×3 (08:40→20:15)
[2016-10-05] MEDS: LIDODERM (LIDOCAINE) PATCH 5% TD SCH (08:40)
[2016-10-05] MEDS: LOSARTAN POTASSIUM 50 MG TAB PO SCH (08:41)
[2016-10-05] MEDS: AMLODIPINE BESYLATE 5 MG TAB PO SCH (08:42)
[2016-10-05] MEDS: GABAPENTIN 300 MG CAP PO SCH ×3 (08:42→20:15)
[2016-10-05] MEDS: MULTIVITAMIN TAB PO SCH (08:42)
[2016-10-05] MEDS: RISPERIDONE 2 MG TAB PO SCH ×2 (08:43→20:15)
[2016-10-05] MEDS: METOPROLOL SUCC 50MG EXT REL TAB PO SCH (08:43)
--- NOTE | 2016-10-05 11:48 | Family Medicine Progress Note ---
Progress Note Date of Service October 05, 2016. Subjective Pt evaluation today including: conversation w/ patient, physical exam, chart review, conversation w/ service consultant, review of inpatient medication list Pain: 03/13 PO Intake: minimal Patient with no acute events overnight Patient was more interactive today then he was yesterday; however he still looks straight ahead and looks at the tv with a blank stare. He continues to have right rib pain and he appears to wince in pain when speaking to him When the nurse asked him this morning as to whether or not he drank his water he said he hadn't despite the cup being almost fully empty I spoke to case management who will speak to his in order to decide where he will be placed for rehab. He denies any shortness of breath, cough, chest pain, nausea, vomiting, fevers, chills or night sweats Additional Comments: please see note for ROS Medications Current Inpatient Medications Medications (Trade) Dose Ordered Sig/Catarina Route Start Time Stop Time Status Last Admin Dose Admin Enoxaparin Sodium (Lovenox Inj) 40 mg Q24H SQ 10/03/16 20:00 11/02/16 19:59 10/04/16 19:17 40 MG Acetaminophen (Tylenol Tab) 650 mg Q4H PRN PO 10/03/16 17:30 11/02/16 17:29 10/04/16 19:19 650 MG Al Hydrox/Mg Hydrox/Simethicone (Maalox Max Susp) 15 ml Q4H PRN PO 10/03/16 17:30 11/02/16 17:29 Magnesium Hydroxide (Milk Of Magnesia Susp) 30 ml Q6H PRN PO 10/03/16 17:30 11/02/16 17:29 Polyethylene (Miralax Powder Packet) 17 gm DAILY PRN PO 10/03/16 17:30 11/02/16 17:29 Ondansetron HCl (Zofran Inj) 4 mg Q6H PRN IV 10/03/16 17:30 11/02/16 17:29 Lidocaine (Lidoderm Patch 5%) 1 patch QAM TD 10/04/16 08:00 11/03/16 08:59 10/05/16 08:40 1 PATCH Miscellaneous (Remove Lidoderm Patch) 1 ea DAILY@21 N/A 10/03/16 21:00 11/02/16 20:59 Morphine Sulfate (MoRPHine SULFATE INJ) 4 mg Q4 PRN IV 10/03/16 17:30 10/17/16 17:29 10/05/16 10:17 4 MG Amlodipine Besylate (Norvasc Tab) 10 mg QAM PO 10/04/16 08:00 11/03/16 08:59 Future Hold 10/05/16 08:42 10 MG Atorvastatin Calcium (Lipitor Tab) 40 mg QPM PO 10/03/16 21:00 11/02/16 20:59 10/04/16 20:31 40 MG Buspirone HCl (BusPAR TAB) 15 mg TID PO 10/03/16 20:00 11/02/16 20:59 10/05/16 08:40 15 MG Gabapentin (Neurontin Tab) 600 mg HS PO 10/03/16 21:00 11/02/16 20:59 10/04/16 20:32 600 MG Gabapentin (Neurontin Cap) 300 mg TID PO 10/03/16 20:00 11/02/16 20:59 10/05/16 08:42 300 MG Lamotrigine (Lamictal Tab) 200 mg BID PO 10/03/16 20:00 11/02/16 20:59 10/05/16 08:41 200 MG Levothyroxine Sodium (Synthroid Tab) 50 mcg DAILYBB PO 10/04/16 06:30 11/03/16 06:29 10/05/16 06:03 50 MCG Losartan Potassium (coZAAR TAB) 100 mg QAM PO 10/04/16 08:00 11/03/16 08:59 10/05/16 08:41 100 MG Metoprolol Succinate (Toprol Xl Tab) 200 mg DAILY PO 10/04/16 08:00 11/03/16 08:59 10/05/16 08:43 200 MG Multivitamins (Multivitamin Tab) 1 tab QAM PO 10/04/16 08:00 11/03/16 08:59 10/05/16 08:42 1 TAB Risperidone (Risperdal Tab) 2 mg QAM PO 10/04/16 08:00 11/03/16 08:59 10/05/16 08:43 2 MG Risperidone (Risperdal Tab) 4 mg QPM PO 10/03/16 21:00 11/02/16 20:59 10/04/16 20:32 4 MG Ropinirole HCl (Requip Tab) 2 mg HS PO 10/03/16 21:00 11/02/16 20:59 10/04/16 20:31 2 MG Trazodone HCl (Desyrel Tab) 50 mg HS PRN PO 10/03/16 17:45 11/02/16 17:44 Trazodone HCl (Desyrel Tab) 100 mg HS PRN PO 10/03/16 17:45 11/02/16 17:44 10/04/16 23:22 100 MG Miscellaneous (Iv Fluids Completed) 1 ea PRN PRN N/A 10/03/16 17:45 10/03/17 17:44 Objective Vital Signs Date Time Temp Pulse Resp B/P Pulse Ox O2 Delivery O2 Flow Rate FiO2 10/05/16 08:30 65 91 Room Air 10/05/16 07:54 36.3 56 20 121/72 93 10/05/16 00:22 36.4 52 20 92/55 90 Room Air 10/05/16 00:00 Nasal Cannula 2.0 10/04/16 19:19 Nasal Cannula 2.0 10/04/16 15:55 58 18 101/64 95 2.0 10/04/16 15:30 95 Nasal Cannula 2.0 10/04/16 15:10 56 20 102/62 95 10/04/16 15:10 58 20 68/42 10/04/16 14:51 36.6 63 20 82/55 94 Physical Exam General Appearance: WD/WN, + mild distress, + pertinent finding (sitting in bed, eyes open and close spontaneously, he is unable to move due to the pain) Respiratory/Chest: lungs clear, no respiratory distress, no accessory muscle use, + pertinent finding (chest tender posteriorly over the 10-12 ribs on the right side) Cardiovascular: regular rate, rhythm, no edema, no murmur Extremities: + pertinent finding (able to squeeze my hand, power 3/5 on the right upper extremity and 4/5 on the left upper extremity) Neurologic/Psychiatric: alert, oriented x 3 Assessment and Plan 70 M with PMH of spinal stenosis, HTN, HLD, Bipolar, Hypothyroid, RLS and previous diabetes that presented to [facility] after falling at home Patient had CT lumbar and thoracic spine which didn't show any acute pathology but did show significant degenerative changes in the spine throughout. Currently his pain is worse with movement and is most likely musculoskeletal in nature. Will get a rib series today to check that the patient doesn't have a rib fracture as the pain is reproducible to palpation and it appears to acutely get worse with any sort of movement. PT has seen the patient and thinks the patient would be best in a rehab facility. Case management will be talking to to decide on best place for placement Right uppp Back pain - Switch to percocet Q4 PRN for pain control instead of IV morphine. - Zofran 4mg Q4 PRN - Lidocaine patch to affected area - PT/OT consult - ? need for surgical referral as outpatient for further management of lumbar stenosis and leg weakness - Rib Series to check for fracture - CT thoracic spine with arthritis - consider pain mx consult Hypotension with orthostasis - possibly may have contributed to fall - titrate antihypertensive medication - hold amlodipine and losartan - continue metoprolol HLD - continue atorvastatin Hypothyroidism - continue levothyroxine RLS - continue ropinirole Bipolar - Continue risperidone and lamotrigine Hx of Diabetes - HbA1c is 5.7 Dispo - Rehab for continued physical therapy Continued [facility] stay due to: inadequate oral pain control, ambulation difficulties Discharge planning: rehab hospital Reviewed: Pt Seen/Exam by Me History still with significant pain with any movement in the right upper back. receiving IV morphine for it. Constitutional: denies: fever Respiratory: negative: short of breath Gastrointestinal/Abdominal: negative: abdominal pain General Appearance: other (irritable during conversation) Respiratory: lungs clear, no respiratory distress Cardiovascular: regular rate, rhythm Neurologic/Psychiatric: alert, oriented x 3 Skin Characteristics: warm/dry Comments Back - unable to reproduce tenderness in the right upper back Assessment/Plan I have reviewed the medical record and performed a history and physical examination of this patient today. I have discussed the case with Dr. Justice. The above note reflects my findings, conclusions, and recommendations.
[2016-10-05 12:05] VITALS: BP 102/62; PULSE 64; O2SAT 91
[2016-10-05] MEDS: OXYCODONE/ACETAMINOPHEN 7.5-325 TAB PO PRN ×2 (13:53→20:46)
--- NOTE | 2016-10-05 15:00 | DIAGNOSTIC IMAGING REPORT ---
RIGHT RIBS UNILATERAL WITH PA CHEST CLINICAL HISTORY: Right back pain. COMPARISON STUDY: Chest radiograph November 07, 2015. FINDINGS: There is no pneumothorax or pleural effusion. Moderate cardiomegaly is unchanged. There is no evidence of pulmonary edema. Bibasilar opacities favor atelectasis. No acute right rib fractures are identified. IMPRESSION: 1. No pneumothorax. No acute right rib fractures identified. 2. Moderate cardiomegaly. No pulmonary edema. 3. Bibasilar opacities suggestive of atelectasis. Electronically signed by: Andre Wilhelm M.D. 10/05/2016 2:59 PM Dictated Date/Time: 10/05/2016 2:56 PM
[2016-10-05 16:30] VITALS: BP 105/66; PULSE 61; TEMP 36.6; O2SAT 91
[2016-10-05] MEDS: ENOXAPARIN 40 MG/0.4 ML SYR SQ SCH (20:14)
[2016-10-05] MEDS: ATORVASTATIN 20 MG TAB PO SCH (20:14)
[2016-10-05] MEDS: ROPINIROLE HCL 1 MG TAB PO SCH (20:14)
[2016-10-05] MEDS: GABAPENTIN 600 MG TAB PO SCH (20:15)
[2016-10-05 23:29] VITALS: BP 96/61; PULSE 58; TEMP 36.7; O2SAT 91
[2016-10-06] MEDS: LEVOTHYROXINE 50 MCG TAB PO SCH (05:52)
[2016-10-06 06:07] LABS: HEMATOCRIT 43.7 % (42-52); MEAN CELL VOLUME 87.8 fL (80-100); MEAN CORPUSCULAR HEMOGLOBIN 28.5 pg (25-34); MEAN CORPUSCULAR HGB CONC 32.5 g/dl (32-36); MEAN PLATELET VOLUME 8.2 fL (7.4-10.4); PLATELET COUNT 166 K/uL (130-400); RED BLOOD COUNT 4.98 M/uL (4.7-6.1); WHITE BLOOD COUNT 7.28 K/uL (4.8-10.8)
[2016-10-06 06:42] LABS: CREATININE 1.5 mg/dl (0.60-1.40)
[2016-10-06 07:49] VITALS: BP 101/63; PULSE 56; TEMP 36.7; O2SAT 93
[2016-10-06] MEDS: METOPROLOL SUCC 50MG EXT REL TAB PO SCH (08:00)
[2016-10-06] MEDS: LIDODERM (LIDOCAINE) PATCH 5% TD SCH (08:16)
[2016-10-06] MEDS: BusPIRone 15 MG TAB PO SCH ×3 (08:19→21:12)
[2016-10-06] MEDS: MULTIVITAMIN TAB PO SCH (08:20)
[2016-10-06] MEDS: GABAPENTIN 300 MG CAP PO SCH ×3 (08:20→21:14)
[2016-10-06] MEDS: RISPERIDONE 2 MG TAB PO SCH ×2 (08:21→21:12)
[2016-10-06] MEDS: OXYCODONE/ACETAMINOPHEN 7.5-325 TAB PO PRN (08:27)
--- NOTE | 2016-10-06 10:16 | Family Medicine Progress Note ---
Progress Note Date of Service October 06, 2016. Subjective Pt evaluation today including: conversation w/ patient, physical exam, chart review, conversation w/ reimbursement consultant, review of inpatient medication list Pain: 03/13 PO Intake: adequate Voiding: mccray catheter in place Patient with no acute events overnight Patient had a full bladder yesterday on bladder scan and had 800cc drained with placement of a mccray He says that his pain is improving despite not receiving regular pain medications A referral has been put [facility] Patient denies any chest pain, palpitations, shortness of breath, fevers, night sweats chills or cough Additional Comments: please see note for ROS Medications Current Inpatient Medications Medications (Trade) Dose Ordered Sig/Catarina Route Start Time Stop Time Status Last Admin Dose Admin Enoxaparin Sodium (Lovenox Inj) 40 mg Q24H SQ 10/03/16 20:00 11/02/16 19:59 10/05/16 20:14 40 MG Acetaminophen (Tylenol Tab) 650 mg Q4H PRN PO 10/03/16 17:30 11/02/16 17:29 10/04/16 19:19 650 MG Al Hydrox/Mg Hydrox/Simethicone (Maalox Max Susp) 15 ml Q4H PRN PO 10/03/16 17:30 11/02/16 17:29 Magnesium Hydroxide (Milk Of Magnesia Susp) 30 ml Q6H PRN PO 10/03/16 17:30 11/02/16 17:29 Polyethylene (Miralax Powder Packet) 17 gm DAILY PRN PO 10/03/16 17:30 11/02/16 17:29 Ondansetron HCl (Zofran Inj) 4 mg Q6H PRN IV 10/03/16 17:30 11/02/16 17:29 Lidocaine (Lidoderm Patch 5%) 1 patch QAM TD 10/04/16 08:00 11/03/16 08:59 10/06/16 08:16 1 PATCH Miscellaneous (Remove Lidoderm Patch) 1 ea DAILY@21 N/A 10/03/16 21:00 11/02/16 20:59 10/05/16 20:17 1 EA Amlodipine Besylate (Norvasc Tab) 10 mg QAM PO 10/04/16 08:00 11/03/16 08:59 Future Hold 10/05/16 08:42 10 MG Atorvastatin Calcium (Lipitor Tab) 40 mg QPM PO 10/03/16 21:00 11/02/16 20:59 10/05/16 20:14 40 MG Buspirone HCl (BusPAR TAB) 15 mg TID PO 10/03/16 20:00 11/02/16 20:59 10/06/16 08:19 15 MG Gabapentin (Neurontin Tab) 600 mg HS PO 10/03/16 21:00 11/02/16 20:59 10/05/16 20:15 600 MG Gabapentin (Neurontin Cap) 300 mg TID PO 10/03/16 20:00 11/02/16 20:59 10/06/16 08:20 300 MG Lamotrigine (Lamictal Tab) 200 mg BID PO 10/03/16 20:00 11/02/16 20:59 10/06/16 08:20 200 MG Levothyroxine Sodium (Synthroid Tab) 50 mcg DAILYBB PO 10/04/16 06:30 11/03/16 06:29 10/06/16 05:52 50 MCG Losartan Potassium (coZAAR TAB) 100 mg QAM PO 10/04/16 08:00 11/03/16 08:59 Future Hold 10/05/16 08:41 100 MG Metoprolol Succinate (Toprol Xl Tab) 200 mg DAILY PO 10/04/16 08:00 11/03/16 08:59 10/05/16 08:43 200 MG Multivitamins (Multivitamin Tab) 1 tab QAM PO 10/04/16 08:00 11/03/16 08:59 10/06/16 08:20 1 TAB Risperidone (Risperdal Tab) 2 mg QAM PO 10/04/16 08:00 11/03/16 08:59 10/06/16 08:21 2 MG Risperidone (Risperdal Tab) 4 mg QPM PO 10/03/16 21:00 11/02/16 20:59 10/05/16 20:15 4 MG Ropinirole HCl (Requip Tab) 2 mg HS PO 10/03/16 21:00 11/02/16 20:59 10/05/16 20:14 2 MG Trazodone HCl (Desyrel Tab) 50 mg HS PRN PO 10/03/16 17:45 11/02/16 17:44 Trazodone HCl (Desyrel Tab) 100 mg HS PRN PO 10/03/16 17:45 11/02/16 17:44 10/04/16 23:22 100 MG Miscellaneous (Iv Fluids Completed) 1 ea PRN PRN N/A 10/03/16 17:45 10/03/17 17:44 Oxycodone/ Acetaminophen (Percocet 7.5-325MG Tab) 1 tab Q4H PRN PO 10/05/16 11:45 10/19/16 11:44 10/06/16 08:27 1 TAB Objective Vital Signs Date Time Temp Pulse Resp B/P Pulse Ox O2 Delivery O2 Flow Rate FiO2 10/06/16 07:49 36.7 56 16 101/63 93 Room Air 10/06/16 00:00 Room Air 10/05/16 23:29 36.7 58 20 96/61 91 Room Air 10/05/16 20:00 Room Air 10/05/16 16:30 36.6 61 20 105/66 91 Room Air 10/05/16 16:00 Room Air 10/05/16 12:05 64 12 102/62 91 Room Air Physical Exam Notes: General Appearance: WD/WN, + mild distress, + pertinent finding (sitting in bed, eyes open and close spontaneously, patient is able to pull himself up and is more mobile than yesterday) Respiratory/Chest: lungs clear, no respiratory distress, no accessory muscle use, + pertinent finding (chest tender posteriorly over the 10-12 ribs on the right side, has a patch over the area) Cardiovascular: regular rate, rhythm, no edema, no murmur Extremities: + pertinent finding (able to squeeze my hand, power 5/5 in both upper extremities) Neurologic/Psychiatric: alert, oriented x 3 Laboratory Results Results Past 24 Hours Test 10/06/16 05:35 Range/Units White Blood Count 7.28 4.8-10.8 K/uL Red Blood Count 4.98 4.7-6.1 M/uL Hemoglobin 14.2 14.0-18.0 g/dL Hematocrit 43.7 42-52 % Mean Corpuscular Volume 87.8 80-100 fL Mean Corpuscular Hemoglobin 28.5 25-34 pg Mean Corpuscular Hemoglobin Concent 32.5 32-36 g/dl RDW Standard Deviation 42.1 36.4-46.3 fL RDW Coefficient of Variation 13.1 11.5-14.5 % Platelet Count 166 130-400 K/uL Mean Platelet Volume 8.2 7.4-10.4 fL Creatinine 1.50 0.60-1.40 mg/dl Est Creatinine Clear Calc Drug Dose 51.4 ml/min Estimated GFR () 53.9 Estimated GFR (Non- 46.5 Assessment and Plan 70 M with PMH of spinal stenosis, HTN, HLD, Bipolar, Hypothyroid, RLS and previous diabetes that presented to [facility] after falling at home Patient had a rib xray yesterday yesterday which was normal. We also switched him to oxycodone prn but we will switch it to a scheduled basis Case management have put in a referral for [facility] so we will wait and see what they see. Right upper Back pain - Switch to percocet Q4 PRN for pain control - scheduled dose - Zofran 4mg Q4 PRN - Lidocaine patch to affected area - PT/OT consult - ? need for surgical referral as outpatient for further management of lumbar stenosis and leg weakness - Rib Series to check for fracture - CT thoracic spine with arthritis - pain mx consult Hypotension with orthostasis - possibly may have contributed to fall - titrate antihypertensive medication - hold amlodipine and losartan - continue metoprolol HLD - continue atorvastatin Hypothyroidism - continue levothyroxine RLS - continue ropinirole Bipolar - Continue risperidone and lamotrigine Hx of Diabetes - HbA1c is 5.7 Dispo - Rehab for continued physical therapy at [facility] Continued [facility] stay due to: ambulation difficulties, home environment unsafe for pt Reviewed: Pt Seen/Exam by Me History wants to get out of hospital. Constitutional: denies: fever Respiratory: negative: short of breath Cardiovascular: denies chest pain Gastrointestinal/Abdominal: negative: abdominal pain Musculoskeletal: positive: other (still has back pain. ) General Appearance: no apparent distress Respiratory: lungs clear, no respiratory distress Cardiovascular: regular rate, rhythm Neurologic/Psychiatric: alert, oriented x 3 Assessment/Plan I have reviewed the medical record and performed a history and physical examination of this patient today. I have discussed the case with Dr. Justice. The above note reflects my findings, conclusions, and recommendations.
[2016-10-06] MEDS: OXYCODONE/ACETAMINOPHEN 7.5-325 TAB PO SCH ×2 (12:16→18:11)
[2016-10-06] MEDS: ALPRAZOLAM 0.25 MG TAB PO PRN (15:32)
[2016-10-06 15:36] VITALS: BP 114/73; PULSE 87; TEMP 36.9; O2SAT 91
[2016-10-06] MEDS: MAGNESIUM HYDROXIDE SUSP 30 ML UDC PO PRN (18:12)
[2016-10-06] MEDS: GABAPENTIN 600 MG TAB PO SCH (21:12)
[2016-10-06] MEDS: ENOXAPARIN 40 MG/0.4 ML SYR SQ SCH (21:13)
[2016-10-06] MEDS: ATORVASTATIN 20 MG TAB PO SCH (21:14)
[2016-10-06] MEDS: ROPINIROLE HCL 1 MG TAB PO SCH (21:14)
[2016-10-06 23:55] VITALS: BP 121/68; PULSE 68; TEMP 36.6; O2SAT 90
[2016-10-07] MEDS: OXYCODONE/ACETAMINOPHEN 7.5-325 TAB PO SCH ×5 (00:11→23:44)
[2016-10-07] MEDS: LEVOTHYROXINE 50 MCG TAB PO SCH (05:51)
[2016-10-07 06:18] LABS: BUN/CREATININE RATIO 16.4 (10-20); CALCIUM 8.5 mg/dl (8.5-10.1); CREATININE 1.2 mg/dl (0.60-1.40)
[2016-10-07 07:13] VITALS: BP 118/71; PULSE 71; TEMP 36.6; O2SAT 91
[2016-10-07] MEDS: METOPROLOL SUCC 50MG EXT REL TAB PO SCH (08:17)
[2016-10-07] MEDS: GABAPENTIN 300 MG CAP PO SCH ×3 (08:17→21:30)
[2016-10-07] MEDS: LIDODERM (LIDOCAINE) PATCH 5% TD SCH (08:17)
[2016-10-07] MEDS: BusPIRone 15 MG TAB PO SCH ×3 (08:19→21:32)
[2016-10-07] MEDS: RISPERIDONE 2 MG TAB PO SCH ×2 (08:19→21:31)
[2016-10-07] MEDS: MULTIVITAMIN TAB PO SCH (08:19)
[2016-10-07 15:06] VITALS: BP 123/70; PULSE 67; TEMP 37.2; O2SAT 93
--- NOTE | 2016-10-07 15:40 | Family Medicine Progress Note ---
Progress Note Date of Service October 07, 2016. Subjective Pt evaluation today including: conversation w/ patient, physical exam, chart review, lab review, review of studies Pain: Right sided back pain in flank region Voiding: mccray catheter in place Patient sitting at bedside chair this morning and states that he feels like his pain is improving. No other complaints and no acute events overnight. Constitutional: No chills, No fever, No sweats Respiratory: No cough, No shortness of breath, No wheezing Cardiovascular: No PND, No chest pain, No orthopnea Abdomen: No diarrhea, No nausea, No pain, No vomiting Musculoskeletal: + muscle pain, + problem reported (Right sided back pain) Male : No dysuria Medications Current Inpatient Medications Medications (Trade) Dose Ordered Sig/Catarina Route Start Time Stop Time Status Last Admin Dose Admin Enoxaparin Sodium (Lovenox Inj) 40 mg Q24H SQ 10/03/16 20:00 11/02/16 19:59 10/06/16 21:13 40 MG Acetaminophen (Tylenol Tab) 650 mg Q4H PRN PO 10/03/16 17:30 11/02/16 17:29 10/04/16 19:19 650 MG Al Hydrox/Mg Hydrox/Simethicone (Maalox Max Susp) 15 ml Q4H PRN PO 10/03/16 17:30 11/02/16 17:29 Magnesium Hydroxide (Milk Of Magnesia Susp) 30 ml Q6H PRN PO 10/03/16 17:30 11/02/16 17:29 10/06/16 18:12 30 ML Polyethylene (Miralax Powder Packet) 17 gm DAILY PRN PO 10/03/16 17:30 11/02/16 17:29 Ondansetron HCl (Zofran Inj) 4 mg Q6H PRN IV 10/03/16 17:30 11/02/16 17:29 Lidocaine (Lidoderm Patch 5%) 1 patch QAM TD 10/04/16 08:00 11/03/16 08:59 10/07/16 08:17 1 PATCH Miscellaneous (Remove Lidoderm Patch) 1 ea DAILY@21 N/A 10/03/16 21:00 11/02/16 20:59 10/06/16 21:15 1 EA Amlodipine Besylate (Norvasc Tab) 10 mg QAM PO 10/04/16 08:00 11/03/16 08:59 Future Hold 10/05/16 08:42 10 MG Atorvastatin Calcium (Lipitor Tab) 40 mg QPM PO 10/03/16 21:00 11/02/16 20:59 10/06/16 21:14 40 MG Buspirone HCl (BusPAR TAB) 15 mg TID PO 10/03/16 20:00 11/02/16 20:59 10/07/16 13:53 15 MG Gabapentin (Neurontin Tab) 600 mg HS PO 10/03/16 21:00 11/02/16 20:59 10/06/16 21:12 600 MG Gabapentin (Neurontin Cap) 300 mg TID PO 10/03/16 20:00 11/02/16 20:59 10/07/16 13:53 300 MG Lamotrigine (Lamictal Tab) 200 mg BID PO 10/03/16 20:00 11/02/16 20:59 10/07/16 08:19 200 MG Levothyroxine Sodium (Synthroid Tab) 50 mcg DAILYBB PO 10/04/16 06:30 11/03/16 06:29 10/07/16 05:51 50 MCG Losartan Potassium (coZAAR TAB) 100 mg QAM PO 10/04/16 08:00 11/03/16 08:59 Future Hold 10/05/16 08:41 100 MG Metoprolol Succinate (Toprol Xl Tab) 200 mg DAILY PO 10/04/16 08:00 11/03/16 08:59 10/07/16 08:17 200 MG Multivitamins (Multivitamin Tab) 1 tab QAM PO 10/04/16 08:00 11/03/16 08:59 10/07/16 08:19 1 TAB Risperidone (Risperdal Tab) 2 mg QAM PO 10/04/16 08:00 11/03/16 08:59 10/07/16 08:19 2 MG Risperidone (Risperdal Tab) 4 mg QPM PO 10/03/16 21:00 11/02/16 20:59 10/06/16 21:12 4 MG Ropinirole HCl (Requip Tab) 2 mg HS PO 10/03/16 21:00 11/02/16 20:59 10/06/16 21:14 2 MG Trazodone HCl (Desyrel Tab) 50 mg HS PRN PO 10/03/16 17:45 11/02/16 17:44 Trazodone HCl (Desyrel Tab) 100 mg HS PRN PO 10/03/16 17:45 11/02/16 17:44 10/04/16 23:22 100 MG Miscellaneous (Iv Fluids Completed) 1 ea PRN PRN N/A 10/03/16 17:45 10/03/17 17:44 Oxycodone/ Acetaminophen (Percocet 7.5-325MG Tab) 1 tab Q6 PO 10/06/16 12:00 10/20/16 11:59 10/07/16 12:11 1 TAB Alprazolam (Xanax Tab) 0.25 mg Q6H PRN PO 10/06/16 15:00 11/05/16 14:59 10/06/16 15:32 0.25 MG Objective Vital Signs Date Time Temp Pulse Resp B/P Pulse Ox O2 Delivery O2 Flow Rate FiO2 10/07/16 08:30 Room Air 10/07/16 07:13 36.6 71 18 118/71 91 Room Air 10/07/16 00:01 Room Air 10/06/16 23:55 36.6 68 18 121/68 90 Room Air 10/06/16 20:00 Room Air 10/06/16 16:00 Room Air 10/06/16 15:36 36.9 87 18 114/73 91 Room Air Physical Exam General Appearance: WD/WN, + mild distress, + pertinent finding (Bradykinesia) Eyes: normal inspection, sclerae normal Neck: supple, no carotid bruits Respiratory/Chest: chest non-tender, lungs clear, normal breath sounds Cardiovascular: regular rate, rhythm, no edema, no gallop Abdomen: normal bowel sounds, non tender, soft Extremities: normal inspection, no pedal edema, no calf tenderness, + pertinent finding (Tenderness to palpation at right flank around right lower ribs 10-12) Neurologic/Psychiatric: alert, + depressed affect, + pertinent finding ( Strength 5/5 in RUE) Laboratory Results Results Past 24 Hours Test 10/07/16 05:30 Range/Units Sodium Level 139 136-145 mmol/L Potassium Level 4.0 3.5-5.1 mmol/L Chloride Level 104 98-107 mmol/L Carbon Dioxide Level 30 21-32 mmol/L Anion Gap 5.0 3-11 mmol/L Blood Urea Nitrogen 20 7-18 mg/dl Creatinine 1.20 0.60-1.40 mg/dl Est Creatinine Clear Calc Drug Dose 64.2 ml/min Estimated GFR () 70.6 Estimated GFR (Non- 60.9 BUN/Creatinine Ratio 16.4 10-20 Random Glucose 103 70-99 mg/dl Calcium Level 8.5 8.5-10.1 mg/dl Assessment and Plan Patient is a 60 year old male with a history of depression, multiple suicide attempts, hypertension, and HLD that presents with right sided back pain 1) Right Upper Back Pain after fall - Ribs with Chest X-Ray (10/06) - No acute Fractures - Percocet q4h - Lidoderm Patch - PT/OT - Last PT on 10/05 he refused activity due to pain - Referral to rehab at [facility] - pain improved so hopefully will be able to be assessed for transfer to a Rehab Facility - Pain management referral placed if pain unable to be controlled - Home Med Gabapentin for neuropathic pain 2) Hypotension with positive Orthostasis - Likely contributed to fall - Blood Pressure Currently stable - Continue to hold Amlodipine and Losartan - Metoprolol 200mg PO Daily 3) Hypothyroidism - Synthroid 50mcg PO 4) Psychiatric Medications - Risperidone and Lamictal for Bipolar Disorder - Xanax for Anxiety 5) Insomnia - Trazodone 6) HLD - Atorvastatin 7) DVT - Lovenox Reviewed: Pt Seen/Exam by Me History pleasant this am. pain better controlled Constitutional: denies: fever Respiratory: negative: short of breath Cardiovascular: denies chest pain General Appearance: no apparent distress Respiratory: lungs clear, no respiratory distress Cardiovascular: regular rate, rhythm Neurologic/Psychiatric: alert, oriented x 3 Skin Characteristics: warm/dry Assessment/Plan I have reviewed the medical record and performed a history and physical examination of this patient today. I have discussed the case with Dr. Spring. The above note reflects my findings, conclusions, and recommendations. Reviewed social service note about patient having had recent neurology evaluation for parkinsonism. Depending on PT eval - will consider neuro consult if needed.
[2016-10-07] MEDS: MAGNESIUM HYDROXIDE SUSP 30 ML UDC PO PRN (15:56)
[2016-10-07] MEDS: ALPRAZOLAM 0.25 MG TAB PO PRN (17:03)
[2016-10-07 20:00] VITALS: O2SAT 93
[2016-10-07] MEDS: ATORVASTATIN 20 MG TAB PO SCH (21:29)
[2016-10-07] MEDS: ROPINIROLE HCL 1 MG TAB PO SCH (21:30)
[2016-10-07] MEDS: GABAPENTIN 600 MG TAB PO SCH (21:32)
[2016-10-07] MEDS: ENOXAPARIN 40 MG/0.4 ML SYR SQ SCH (21:34)
[2016-10-07] MEDS: TRAZODONE HCL 100 MG TAB PO PRN (21:41)
[2016-10-07 23:18] VITALS: BP 131/72; PULSE 62; TEMP 37; O2SAT 90
[2016-10-08] MEDS: ALPRAZOLAM 0.25 MG TAB PO PRN (00:34)
[2016-10-08] MEDS: OXYCODONE/ACETAMINOPHEN 7.5-325 TAB PO SCH ×3 (05:38→17:43)
[2016-10-08] MEDS: LEVOTHYROXINE 50 MCG TAB PO SCH (05:38)
[2016-10-08 07:32] VITALS: BP 153/79; PULSE 65; TEMP 36.6; O2SAT 93
[2016-10-08] MEDS: LIDODERM (LIDOCAINE) PATCH 5% TD SCH (08:46)
[2016-10-08] MEDS: METOPROLOL SUCC 50MG EXT REL TAB PO SCH (08:46)
[2016-10-08] MEDS: BusPIRone 15 MG TAB PO SCH ×3 (08:46→20:04)
[2016-10-08] MEDS: GABAPENTIN 300 MG CAP PO SCH ×3 (08:47→20:03)
[2016-10-08] MEDS: RISPERIDONE 2 MG TAB PO SCH ×2 (08:47→20:05)
[2016-10-08] MEDS: MULTIVITAMIN TAB PO SCH (08:47)
--- NOTE | 2016-10-08 14:19 | Family Medicine Progress Note ---
Progress Note Date of Service October 08, 2016. Subjective Pt evaluation today including: conversation w/ patient, physical exam, chart review, lab review, review of studies Pain: Continue to complain of right sided back pain but improved from yesterday Voiding: mccray catheter in place Patient is resting comfortably in bed this morning and has no acute events overnight. His back pain has improved since yesterday and he hopes he can be sent to rehab. Constitutional: No chills, No fever, No sweats Respiratory: No cough, No shortness of breath, No sputum, No wheezing Cardiovascular: No PND, No chest pain, No orthopnea Abdomen: No nausea, No pain, No vomiting Medications Current Inpatient Medications Medications (Trade) Dose Ordered Sig/Catarina Route Start Time Stop Time Status Last Admin Dose Admin Enoxaparin Sodium (Lovenox Inj) 40 mg Q24H SQ 10/03/16 20:00 11/02/16 19:59 10/07/16 21:34 40 MG Acetaminophen (Tylenol Tab) 650 mg Q4H PRN PO 10/03/16 17:30 11/02/16 17:29 10/04/16 19:19 650 MG Al Hydrox/Mg Hydrox/Simethicone (Maalox Max Susp) 15 ml Q4H PRN PO 10/03/16 17:30 11/02/16 17:29 Magnesium Hydroxide (Milk Of Magnesia Susp) 30 ml Q6H PRN PO 10/03/16 17:30 11/02/16 17:29 10/07/16 15:56 30 ML Polyethylene (Miralax Powder Packet) 17 gm DAILY PRN PO 10/03/16 17:30 11/02/16 17:29 Ondansetron HCl (Zofran Inj) 4 mg Q6H PRN IV 10/03/16 17:30 11/02/16 17:29 Lidocaine (Lidoderm Patch 5%) 1 patch QAM TD 10/04/16 08:00 11/03/16 08:59 10/08/16 08:46 1 PATCH Miscellaneous (Remove Lidoderm Patch) 1 ea DAILY@21 N/A 10/03/16 21:00 11/02/16 20:59 10/07/16 21:44 1 EA Amlodipine Besylate (Norvasc Tab) 10 mg QAM PO 10/04/16 08:00 11/03/16 08:59 Future Hold 10/05/16 08:42 10 MG Atorvastatin Calcium (Lipitor Tab) 40 mg QPM PO 10/03/16 21:00 11/02/16 20:59 10/07/16 21:29 40 MG Buspirone HCl (BusPAR TAB) 15 mg TID PO 10/03/16 20:00 11/02/16 20:59 10/08/16 08:46 15 MG Gabapentin (Neurontin Tab) 600 mg HS PO 10/03/16 21:00 11/02/16 20:59 10/07/16 21:32 600 MG Gabapentin (Neurontin Cap) 300 mg TID PO 10/03/16 20:00 11/02/16 20:59 10/08/16 08:47 300 MG Lamotrigine (Lamictal Tab) 200 mg BID PO 10/03/16 20:00 11/02/16 20:59 10/08/16 08:47 200 MG Levothyroxine Sodium (Synthroid Tab) 50 mcg DAILYBB PO 10/04/16 06:30 11/03/16 06:29 10/08/16 05:38 50 MCG Losartan Potassium (coZAAR TAB) 100 mg QAM PO 10/04/16 08:00 11/03/16 08:59 Future Hold 10/05/16 08:41 100 MG Metoprolol Succinate (Toprol Xl Tab) 200 mg DAILY PO 10/04/16 08:00 11/03/16 08:59 10/08/16 08:46 200 MG Multivitamins (Multivitamin Tab) 1 tab QAM PO 10/04/16 08:00 11/03/16 08:59 10/08/16 08:47 1 TAB Risperidone (Risperdal Tab) 2 mg QAM PO 10/04/16 08:00 11/03/16 08:59 10/08/16 08:47 2 MG Risperidone (Risperdal Tab) 4 mg QPM PO 10/03/16 21:00 11/02/16 20:59 10/07/16 21:31 4 MG Ropinirole HCl (Requip Tab) 2 mg HS PO 10/03/16 21:00 11/02/16 20:59 10/07/16 21:30 2 MG Trazodone HCl (Desyrel Tab) 50 mg HS PRN PO 10/03/16 17:45 11/02/16 17:44 Trazodone HCl (Desyrel Tab) 100 mg HS PRN PO 10/03/16 17:45 11/02/16 17:44 10/07/16 21:41 100 MG Miscellaneous (Iv Fluids Completed) 1 ea PRN PRN N/A 10/03/16 17:45 10/03/17 17:44 Oxycodone/ Acetaminophen (Percocet 7.5-325MG Tab) 1 tab Q6 PO 10/06/16 12:00 10/20/16 11:59 10/08/16 11:53 1 TAB Alprazolam (Xanax Tab) 0.25 mg Q6H PRN PO 10/06/16 15:00 11/05/16 14:59 10/08/16 00:34 0.25 MG Objective Vital Signs Date Time Temp Pulse Resp B/P Pulse Ox O2 Delivery O2 Flow Rate FiO2 10/08/16 08:00 Room Air 10/08/16 07:32 36.6 65 20 153/79 93 Room Air 10/08/16 00:00 Room Air 10/07/16 23:18 37.0 62 18 131/72 90 Room Air 10/07/16 20:00 Room Air 10/07/16 15:53 Room Air 10/07/16 15:06 37.2 67 20 123/70 93 Room Air Physical Exam General Appearance: WD/WN, no apparent distress Eyes: normal inspection, sclerae normal Neck: supple, no carotid bruits Respiratory/Chest: chest non-tender, lungs clear, normal breath sounds Cardiovascular: regular rate, rhythm, no edema, no gallop Abdomen: normal bowel sounds, non tender, soft Extremities: normal range of motion, non-tender, normal inspection, no calf tenderness Neurologic/Psychiatric: alert Assessment and Plan Patient is a 60 year old male with a history of depression, multiple suicide attempts, hypertension, and HLD that presents with right sided back pain 1) Right Upper Back Pain after fall - Pain well controlled and was able to move around with PT yesterday - Ribs with Chest X-Ray (10/06) - No acute Fractures - Percocet q4h - scheduled - Lidoderm Patch - Home Med Gabapentin for neuropathic pain Fall - Movement is very bradykinetic and concern of psychiatric medication contributing to it. - Psych consult in am to reevaluate current medication regimen - Also has appointment with neurology (Dr. Corea) as outpatient next month to evaluate movement ds. - PT/OT - Recommend inpatient rehab - [facility] 2) Hypotension with positive Orthostasis - Likely contributed to fall - Blood Pressure Currently stable - Continue to hold Amlodipine and Losartan - Metoprolol 200mg PO Daily 3) Hypothyroidism - Synthroid 50mcg PO 4) Bipolar ds/Anxiety - Movement is very bradykinetic and concern of psychiatric medication contributing to it. - Consider Psych consult in am to reevaluate current medication regimen - Risperidone and Lamictal for Bipolar Disorder - Xanax for Anxiety 5) Insomnia - Trazodone Constipation - Aggressive bowel regimen 6) HLD - Atorvastatin 7) DVT - Lovenox To d/c mccray - per nursing protocol Reviewed: Pt Seen/Exam by Me History back pain well controlled participated in PT yesterday hasn't been out of bed yet Constitutional: denies: fever Respiratory: negative: short of breath Cardiovascular: denies chest pain Gastrointestinal/Abdominal: positive: constipation General Appearance: no apparent distress, other (somnolent) Respiratory: lungs clear, no respiratory distress Cardiovascular: regular rate, rhythm Gastrointestinal: soft Neurologic/Psychiatric: other (somnolent and appropriately responsive on waking up. slow speech) Skin Characteristics: warm/dry Assessment/Plan I have reviewed the medical record and performed a history and physical examination of this patient today. I have discussed the case with Dr. Spring. The above note reflects my findings, conclusions, and recommendations.
[2016-10-08 15:28] VITALS: BP 132/75; PULSE 63; TEMP 36.8; O2SAT 94
[2016-10-08 16:07] VITALS: O2SAT 94
[2016-10-08] MEDS ORDERED: POLYETHYLENE (MIRALAX) 17 GM PACK PO ONE (17:10)
[2016-10-08] MEDS ORDERED: MAGNESIUM HYDROXIDE SUSP 30 ML UDC PO ONE (17:15)
[2016-10-08] MEDS: ATORVASTATIN 20 MG TAB PO SCH (20:02)
[2016-10-08] MEDS: ROPINIROLE HCL 1 MG TAB PO SCH (20:03)
[2016-10-08] MEDS: GABAPENTIN 600 MG TAB PO SCH (20:04)
[2016-10-08] MEDS: DOCUSATE SODIUM 100 MG CAP PO SCH (20:04)
[2016-10-08] MEDS: ENOXAPARIN 40 MG/0.4 ML SYR SQ SCH (20:06)
[2016-10-08 22:57] VITALS: BP 122/74; PULSE 59; TEMP 36.8; O2SAT 91
[2016-10-09] MEDS: OXYCODONE/ACETAMINOPHEN 7.5-325 TAB PO SCH ×2 (00:21→05:42)
[2016-10-09] MEDS: LEVOTHYROXINE 50 MCG TAB PO SCH (05:41)
[2016-10-09 07:08] LABS: HEMATOCRIT 42.2 % (42-52); MEAN CELL VOLUME 87.6 fL (80-100); MEAN CORPUSCULAR HEMOGLOBIN 28.6 pg (25-34); MEAN CORPUSCULAR HGB CONC 32.7 g/dl (32-36); MEAN PLATELET VOLUME 8.1 fL (7.4-10.4); PLATELET COUNT 182 K/uL (130-400); RED BLOOD COUNT 4.82 M/uL (4.7-6.1); WHITE BLOOD COUNT 5.45 K/uL (4.8-10.8)
[2016-10-09] MEDS: LIDODERM (LIDOCAINE) PATCH 5% TD SCH (07:31)
[2016-10-09 07:32] LABS: CREATININE 1.2 mg/dl (0.60-1.40)
[2016-10-09] MEDS: RISPERIDONE 2 MG TAB PO SCH ×2 (07:32→20:50)
[2016-10-09] MEDS: METOPROLOL SUCC 50MG EXT REL TAB PO SCH (07:32)
[2016-10-09] MEDS: BusPIRone 15 MG TAB PO SCH ×3 (07:32→20:48)
[2016-10-09] MEDS: POLYETHYLENE (MIRALAX) 17 GM PACK PO SCH ×4 (07:32→20:51)
[2016-10-09] MEDS: DOCUSATE SODIUM 100 MG CAP PO SCH ×2 (07:33→20:48)
[2016-10-09] MEDS: MULTIVITAMIN TAB PO SCH (07:33)
[2016-10-09] MEDS: GABAPENTIN 300 MG CAP PO SCH ×3 (07:33→20:49)
[2016-10-09 07:34] VITALS: PULSE 62
[2016-10-09 07:50] VITALS: BP 110/68; PULSE 57; TEMP 36.5; O2SAT 92
[2016-10-09] MEDS ORDERED: POLYETHYLENE (MIRALAX) 17 GM PACK PO SCH (08:00)
--- NOTE | 2016-10-09 08:17 | Family Medicine Progress Note ---
Progress Note Date of Service October 09, 2016. Subjective Pt evaluation today including: conversation w/ patient, physical exam, chart review, lab review Patient was not cooperative with history and physical examination this morning. As such a HPI and ROS could not be attained. However, in speaking with his nurse , she says that he has not made any complaints of pain. He has been slightly more sedated, and is constipated. Objective Vital Signs Date Time Temp Pulse Resp B/P Pulse Ox O2 Delivery O2 Flow Rate FiO2 10/09/16 07:50 36.5 57 20 110/68 92 10/09/16 07:34 62 10/09/16 00:00 Room Air 10/08/16 22:57 36.8 59 18 122/74 91 Room Air 10/08/16 20:00 Room Air 10/08/16 16:07 94 Room Air 10/08/16 15:28 36.8 63 18 132/75 94 Room Air Physical Exam General Appearance: WD/WN, no apparent distress, + pertinent finding (hypomamia ) ENT: hearing grossly normal Respiratory/Chest: lungs clear, normal breath sounds, no respiratory distress, no accessory muscle use Cardiovascular: regular rate, rhythm, no murmur Abdomen: normal bowel sounds, soft Extremities: normal inspection, no pedal edema Neurologic/Psychiatric: alert, + depressed affect Skin: normal color, warm/dry, no rash Laboratory Results Results Past 24 Hours Test 10/09/16 05:53 Range/Units White Blood Count 5.45 4.8-10.8 K/uL Red Blood Count 4.82 4.7-6.1 M/uL Hemoglobin 13.8 14.0-18.0 g/dL Hematocrit 42.2 42-52 % Mean Corpuscular Volume 87.6 80-100 fL Mean Corpuscular Hemoglobin 28.6 25-34 pg Mean Corpuscular Hemoglobin Concent 32.7 32-36 g/dl RDW Standard Deviation 41.5 36.4-46.3 fL RDW Coefficient of Variation 12.9 11.5-14.5 % Platelet Count 182 130-400 K/uL Mean Platelet Volume 8.1 7.4-10.4 fL Creatinine 1.20 0.60-1.40 mg/dl Est Creatinine Clear Calc Drug Dose 64.2 ml/min Estimated GFR () 70.6 Estimated GFR (Non- 60.9 Assessment and Plan 60 year old male with a history of depression, multiple suicide attempts, hypertension, and HLD that presents with right sided back pain Right Upper Back Pain after fall - Ribs with Chest X-Ray (10/06) no acute Fractures. Pain control improved and has partaken in PT session. Some sedation and constipation associated with high dose, and thus will reduce. - Percocet 5/325 q6h - Lidoderm Patch - Gabapentin for neuropathic pain - Plans to d/c m[facility]ray tomorrow (inserted b/c of retention after patient was in too much pain to move) Constipation - Aggressive bowel regimen - Miralax QID, Colace BID, bisacodyl suppository Fall - at home. Movement is very bradykinetic and concern of psychiatric medication contributing to it. Also has appointment with neurology (Dr. Corea) as outpatient next month to evaluate movement ds. Psych consulted - recs appreciated. Discontinued alprazolam. - PT/OT - recommend inpatient rehab Hypotension with positive orthostasis - Likely contributed to fall. Blood pressure currently stable - Metoprolol 200mg PO Daily - Amlodipine and Losartan held. Hypothyroidism - TSH WNL last checked 05/19 - Synthroid 50mcg PO Bipolar ds/Anxiety - Psych consulted - recs appreciated. Discontinued alprazolam. -Risperidone 2mg qAM and 4mg HS, and lamotrigine 200 mg BID for Bipolar - Xanax and Buspar for Anxiety Insomnia - Trazodone 100mg HS HLD - Atorvastatin DVT - Lovenox Dispo - To [facility] Continued [facility] stay due to: inadequate oral pain control Discharge planning: rehab hospital Resident Tracking Resident Involvement: Resident Care Provided Care Provided: Adult Hospital Medicine Reviewed: Pt Seen/Exam by Me History Resident Physician Supervision Note: I interviewed and examined the patient. Discussed with Dr. Barajas and agree with findings and plan as documented in the note. Any exceptions or clarifications are listed here: Pt states he still has pain at the same spot since his fall and it is worse with movement, located in right posterior axillary region of thorax. Otherwise still with Mccray in and no BM in 6 days Vitals reviewed NAD, sittin gup in bed, masked facies RRR no mgr CTAB no wcr MSK- +TTP over right posterior axillary region of thorax without mass or ecchymosis, no crepitus, 5/5 strength throughout upper exts bilat 70 yo male with bipolar disorder and fall secondary possibly to orthostatic hypotension and medication side effects. -no fractures on fall, contusion -continue percocet and f/u with PM as outpt if needed -PT/OT -Appreciate Psychiatry consult and will stop xanax, but pt wants to continue his trazadone -work on bowel regimen and then dc [facility] and hopeful for dc to [facility] rehab soon Documented By: Sara Troy
--- NOTE | 2016-10-09 11:11 | Pain Management Consultation ---
Pain Management Consultation Date of Consultation October 09, 2016. Reason for Consultation pain History 70yoM who fell walking out of his bathroom and into his bedroom and landed on his back. The patient had been stating he had R>L shoulder pain worsened with movement. The patient denies any difficulty moving his arms. He notes that he is not having any pain currently with scheduled percocet. He is happy with his pain control currently and doesn't desire any changes. Past Medical/Surgical History (1) Chest pain (2) Suicide attempt by acetaminophen overdose (3) Acute head injury (4) Low back pain (5) Fall (6) Ambulatory dysfunction (7) Back pain (8) Atypical chest pain (9) SVT (supraventricular tachycardia) (10) Hyperlipidemia (11) HTN (hypertension) (12) Diabetes Family History Patient reports no known family medical history. Family Hx Review: history personally reviewed by me Social / Work History Drug Use: none Marital Status: Housing Status: lives with significant other Occupation: retired Allergies Coded Allergies: Pregabalin (Unverified Allergy, Severe, SUICIDAL, 10/03/16) Celecoxib (Verified Allergy, Unknown, RASH, 10/03/16) Ibuprofen (Verified Allergy, Unknown, RASH, 10/03/16) Quetiapine (Unverified Allergy, Unknown, UNKNOWN, 10/03/16) Medications Current Inpatient Medications Medications (Trade) Dose Ordered Sig/Catarina Route Start Time Stop Time Status Last Admin Dose Admin Enoxaparin Sodium (Lovenox Inj) 40 mg Q24H SQ 10/03/16 20:00 11/02/16 19:59 10/08/16 20:06 40 MG Acetaminophen (Tylenol Tab) 650 mg Q4H PRN PO 10/03/16 17:30 11/02/16 17:29 10/04/16 19:19 650 MG Al Hydrox/Mg Hydrox/Simethicone (Maalox Max Susp) 15 ml Q4H PRN PO 10/03/16 17:30 11/02/16 17:29 Magnesium Hydroxide (Milk Of Magnesia Susp) 30 ml Q6H PRN PO 10/03/16 17:30 11/02/16 17:29 10/07/16 15:56 30 ML Polyethylene (Miralax Powder Packet) 17 gm DAILY PRN PO 10/03/16 17:30 11/02/16 17:29 Ondansetron HCl (Zofran Inj) 4 mg Q6H PRN IV 10/03/16 17:30 11/02/16 17:29 Lidocaine (Lidoderm Patch 5%) 1 patch QAM TD 10/04/16 08:00 11/03/16 08:59 10/09/16 07:31 1 PATCH Miscellaneous (Remove Lidoderm Patch) 1 ea DAILY@21 N/A 10/03/16 21:00 11/02/16 20:59 10/08/16 20:06 1 EA Amlodipine Besylate (Norvasc Tab) 10 mg QAM PO 10/04/16 08:00 11/03/16 08:59 Future Hold 10/05/16 08:42 10 MG Atorvastatin Calcium (Lipitor Tab) 40 mg QPM PO 10/03/16 21:00 11/02/16 20:59 10/08/16 20:02 40 MG Buspirone HCl (BusPAR TAB) 15 mg TID PO 10/03/16 20:00 11/02/16 20:59 10/09/16 07:32 15 MG Gabapentin (Neurontin Tab) 600 mg HS PO 10/03/16 21:00 11/02/16 20:59 10/08/16 20:04 600 MG Gabapentin (Neurontin Cap) 300 mg TID PO 10/03/16 20:00 11/02/16 20:59 10/09/16 07:33 300 MG Lamotrigine (Lamictal Tab) 200 mg BID PO 10/03/16 20:00 11/02/16 20:59 10/09/16 07:33 200 MG Levothyroxine Sodium (Synthroid Tab) 50 mcg DAILYBB PO 10/04/16 06:30 11/03/16 06:29 10/09/16 05:41 50 MCG Losartan Potassium (coZAAR TAB) 100 mg QAM PO 10/04/16 08:00 11/03/16 08:59 Future Hold 10/05/16 08:41 100 MG Metoprolol Succinate (Toprol Xl Tab) 200 mg DAILY PO 10/04/16 08:00 11/03/16 08:59 10/09/16 07:32 200 MG Multivitamins (Multivitamin Tab) 1 tab QAM PO 10/04/16 08:00 11/03/16 08:59 10/09/16 07:33 1 TAB Risperidone (Risperdal Tab) 2 mg QAM PO 10/04/16 08:00 11/03/16 08:59 10/09/16 07:32 2 MG Risperidone (Risperdal Tab) 4 mg QPM PO 10/03/16 21:00 11/02/16 20:59 10/08/16 20:05 4 MG Ropinirole HCl (Requip Tab) 2 mg HS PO 10/03/16 21:00 11/02/16 20:59 10/08/16 20:03 2 MG Trazodone HCl (Desyrel Tab) 50 mg HS PRN PO 10/03/16 17:45 11/02/16 17:44 Trazodone HCl (Desyrel Tab) 100 mg HS PRN PO 10/03/16 17:45 11/02/16 17:44 10/07/16 21:41 100 MG Miscellaneous (Iv Fluids Completed) 1 ea PRN PRN N/A 10/03/16 17:45 10/03/17 17:44 Oxycodone/ Acetaminophen (Percocet 7.5-325MG Tab) 1 tab Q6 PO 10/06/16 12:00 10/20/16 11:59 10/09/16 05:42 1 TAB Alprazolam (Xanax Tab) 0.25 mg Q6H PRN PO 10/06/16 15:00 11/05/16 14:59 10/08/16 00:34 0.25 MG Polyethylene (Miralax Powder Packet) 17 gm Q4H PO 10/09/16 08:00 11/08/16 07:59 10/09/16 07:32 17 GM Docusate Sodium (coLACE CAP) 100 mg BID PO 10/08/16 20:00 11/07/16 19:59 10/09/16 07:33 100 MG Review of Systems 10pt ROS otherwise negative from HPI Physical Exam Height & Weight: Height 5 feet, 7.00 inches. Weight 99.000 (Kilograms) 218 (Pounds) Last Vital Signs Documentation Date Time Temp Pulse Resp B/P Pulse Ox O2 Delivery O2 Flow Rate FiO2 10/09/16 08:00 Room Air 10/09/16 07:50 36.5 57 20 110/68 92 10/07/16 20:00 Exam: Sleepy on exam, but arousable sitting in bedside chair. Offer no complaints. Pt unable to participate in exam secondary to sedate state, but did not have pain with passive ROM shoulder. CN grossly intact. gait not observed. Laboratory Laboratory Results (Last CBC): 10/09/16 05:[address]: reports reviewed ( ) Other Findings Patient: MARGARET PADILLA Address1: [address] [facility] Rec: [id number] Address2: [facility] [address] Acct ID: [id number] [facility] Zip: [place] [address] Date: 1945 Sex: M Room/Bed: Ref Phy: Rich Narvaez M.D. SC: SAÚL Att Phy: Report #: [id number] Qian Phy: Rich Narvaez M.D. Test: LSWO Admit Phy: Scrap Handler: [facility] Interpreting Phy: Lux Jorgensen M.D. Diagnosis: BACK PAIN Ordering Phy: Akin Easley MD Service Date: 10/03/16 Admit Date: 10/03/16 MNE: [id number] CONF: DICTATED BY: Lux Jorgensen M.D.]] CC: Akin Easley M.D. Hester, Christopher E., M.D. Endcc: [~ rep ct add3]] CT SCAN OF THE LUMBAR SPINE WITHOUT IV CONTRAST CLINICAL HISTORY: Low back pain. COMPARISON STUDY: Radiographs of the lumbar spine dated 09/20/2015. Abdominal CT dated 03/16/2014. TECHNIQUE: CT scan of the lumbar spine is performed from the lower thoracic spine to the sacrum. Images reviewed in the axial, sagittal, and coronal planes. IV contrast was not administered for this examination. CT DOSE: 1958.68 mGy.cm FINDINGS: The skeletal structures are osteopenic. There is no evidence of fracture or malalignment involving the lumbosacral spine. The transverse and spinous processes are intact. Advanced facet arthropathy is seen throughout the lumbar spine. There is no evidence of spondylolysis. No lytic or blastic lesions are seen. Anterior osteophytes are seen throughout. There are also large lateral marginal osteophytes which appear almost completely fused. Lumbar dextrocurvature may be positional. There is moderate to advanced degenerative disc space narrowing seen at all levels. Posterior disc osteophyte complexes are also present at all levels. There is no evidence of large disc herniation. The visualized sacrum and bony pelvis appear intact. Degenerative change and partial fusion is noted involving the sacroiliac joints. There is moderate atherosclerotic calcification of the abdominal aorta. Mild fatty atrophy is noted in the paraspinous musculature. A 1.4 cm left adrenal adenoma is unchanged. IMPRESSION: 1. There is no evidence of fracture or malalignment involving the lumbosacral spine. 2. Osteopenia and spondylotic change as above. Assessment BL Shoulder pain Recommendations Pt comfortable currently, but sedate. Would recommend reducing amount of percocet to diminish sedation. Orders written for percocet 5/325mg po q6 instead of 7.5mg strength. Please call if any questions. Thank you. [employer] Voice Recognition This chart was completed in part utilizing [employer] Voice Recognition Software. Random word insertions, pronoun errors, and incomplete sentences are an occasional consequence of this system due to software limitations and ambient noise. Any questions or concerns about the content, text or information contained within the body of this dictation should be directly addressed to the provider for clarification.
[2016-10-09] MEDS: OXYCODONE/ACETAMINOPHEN 5-325 TAB PO SCH ×3 (11:46→23:30)
--- NOTE | 2016-10-09 14:49 | Psychiatric History & Physical ---
History Date of Service October 09, 2016. Identifying Data Jeff Stiles is a 70-year-old male who currently lives in [place] with his , has a history of bipolar disorder and anxiety treated by Dr. Alvares at [facility], and presented to the emergency room 10/03/2016 after a fall at home. He is admitted to the family medicine service, and psychiatry is consulted for medication evaluation in the context of bradykinesia. Chief Complaint "I don't have nothin' to do". History of Present Illness The patient is known to me from a hospitalization on our behavioral health unit in November 2015 for a suicide attempt by overdose on Ambien and [place] in the context of severe stress at home, as his adult daughter is a heroin addict and had been staying with them, causing a lot of tension in the home. Multiple family meetings were held with his , one with his son, and his daughter was invited, but never attended. His family described him as angry and bitter with a bad temper. He was started on BuSpar, but then stopped it as he didn't feel it was effective, and lurasidone and gabapentin were increased. He was referred for multiple outpatient supports, including [facility] med management, therapist, a blended keycase assembler, and an office of aging referral. He was discharged home to follow up with his outpatient providers. Since then , he's continued to see Dr. Mares, whom he last saw 08/29/2016, at which time he reported worsening mood and anxiety for which Ativan had been ineffective. The Ativan was discontinued, and his risperidone was increased to 2 mg in the morning and 4 mg at bedtime. He was to follow up in 6 weeks, but missed that appointment due to his current hospitalization. He presented to our emergency room 6 days ago after he fell at home when he got up to use the bathroom at night and was found on the floor by family. He has reported shoulder pain here , physical therapy has been consulted and the recommendations are for inpatient rehabilitation, and he has been receiving pain medication (initially morphine IV , and now oral Percocet). He was seen by pain management this morning, and was noted to be sedated, so his Percocet dose was decreased. On my assessment, he is noticeably slowed, with long pauses before answering questions, at times not answering at all. He states that his mood was "better" prior to hospitalization , but has been "sort of low" since he's been here, as he doesn't like being in the hospital and would prefer to be at home doing yard work area he understands the recommendations are to go to [facility] to regain his strength, and is willing to pursue this. He reports ongoing stress at home around his daughter who is a heroin addict, stating that they don't know where she is currently and haven't heard from her and a week or two, and also due to his 's medical problems. He is not sure if he was feeling slowed prior to coming into the hospital, but admits that his thinking is currently slowed and at times he feels he can't retain his thoughts long enough to express them. He also reports memory problems, which have been going on for some time, but can't be more specific. Although he told the liaison nurse that he was hearing and seeing things, on my assessment, he denies this, but also states that he cannot recall what happening to him from moment to moment. He endorses passive suicidal thoughts "from time to time," where he thinks "it would be easier to karimi in," but denies plan or intent to harm himself. He denies manic symptoms. He does endorse anxiety, which has been worse at night, and is poorly able to describe it, stating "it's hard to explain." He endorses feeling bored here in the hospital. Past Psychiatric History Current OP Treatment: psychiatrist (Dr. Alvares at [facility]) Prior Psych Hospitalizations: [facility] (November 2015), other (at least 2 admissions to [facility] in 2015) Access to a Gun: No Suicide Attempts: Yes (overdose in November 2015) Past Medication Trials Quetiapine, duloxetine, sertraline, paliperidone, lurasidone, aripiprazole, olanzapine Additional Notes He was referred for therapy at [facility], blended case management through [facility], and [facility] med management on discharge from our behavioral health unit last November; unclear if he is still has any of these services. Past Medical/Surgical History (1) Fall (2) Ambulatory dysfunction (3) Back pain (4) Hyperlipidemia (5) HTN (hypertension) (6) Diabetes Allergies Allergies: Coded Allergies: Pregabalin (Unverified Allergy, Severe, SUICIDAL, 10/03/16) Celecoxib (Verified Allergy, Unknown, RASH, 10/03/16) Ibuprofen (Verified Allergy, Unknown, RASH, 10/03/16) Quetiapine (Unverified Allergy, Unknown, UNKNOWN, 10/03/16) Home Medications Scheduled Amlodipine (Norvasc), 10 MG PO QAM Atorvastatin (Lipitor), 40 MG PO QPM Buspirone HCl (Buspirone HCl), 15 MG PO TID Gabapentin (Gabapentin), 600 MG PO HS Gabapentin (Neurontin), 300 MG PO TID Lamotrigine (Lamictal), 200 MG PO BID Levothyroxine Sodium (Synthroid), 50 MCG PO QAM Losartan Potassium (Cozaar), 100 MG PO QAM Melatonin (Melatonin), 3 MG PO HS Metoprolol Succinate (Toprolxl (Toprol-Xl), 200 MG PO DAILY Multivitamin (Multivitamin), 1 TAB PO QAM Risperidone (Risperdal), 2 MG PO QAM Risperidone (Risperdal), 4 MG PO QPM Ropinirole (Requip), 2 MG PO HS Scheduled PRN Trazodone HCl (Trazodone HCl), 50 MG PO HS PRN for INSOMNIA Trazodone Hcl (Trazodone), 100 MG PO HS PRN for Insomnia Family History Patient reports no known family medical history. History of Suicide: No History of Substance Abuse: Yes (daughter has addictions) Psychiatric History: No Alcohol Use Alcohol Use In Past 12 Months: No Smoking Use Smoking Status: Former Smoker (10 year pack history) Substance History Denies illicit or recreational drug use. 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 Examination Vital Signs Vital Signs Past 12 Hours Date Time Temp Pulse Resp B/P Pulse Ox O2 Delivery O2 Flow Rate FiO2 10/09/16 08:00 Room Air 10/09/16 07:50 36.5 57 20 110/68 92 10/09/16 07:34 62 Laboratory Results Last 24 Hours Test 10/09/16 05:53 White Blood Count 5.45 K/uL Red Blood Count 4.82 M/uL Hemoglobin 13.8 g/dL Hematocrit 42.2 % Mean Corpuscular Volume 87.6 fL Mean Corpuscular Hemoglobin 28.6 pg Mean Corpuscular Hemoglobin Concent 32.7 g/dl RDW Standard Deviation 41.5 fL RDW Coefficient of Variation 12.9 % Platelet Count 182 K/uL Mean Platelet Volume 8.1 fL Creatinine 1.20 mg/dl Est Creatinine Clear Calc Drug Dose 64.2 ml/min Estimated GFR () 70.6 Estimated GFR (Non- 60.9 Mental Examination During interview pt is: alert and oriented (oriented 03/13), cooperative Appearance: appropriately groomed, appeared stated age Eye contact is: poor Motor behavior is: psychomotor retardation Speech: other (minimal, delayed, slow) Affect: constricted (to sedated) Mood is: other ("sort of low") Thought process: goal directed, blocking Thought content: reality based without delusions Suicidal thought are: present (endorses passive suicidal thoughts which are at baseline; denies plan or intent to harm himself), Plan: denied, Intent: denied Homicidal thoughts are: denied Hallucinations: denies auditory, denies visual Cognition: other (all spheres impaired) Intelligence estimated to be: consistent with level of education Insight: fair Judgement: fair Impression / Recommendations Impression 70-year-old white male with a history of bipolar disorder and generalized anxiety disorder who is admitted after a fall. Psychiatry is consulted for bradykinesia and possible contribution of psychiatric medications. He is markedly slowed, both physically and mentally, and it is difficult to determine how much of this is due to opiate pain medications versus psychotropic drugs versus a potential neurologic condition, as he is also being evaluated for a movement disorder and worsening memory. I cannot rule out that the increased dose of risperidone was contributing, and then attempting to get more information from his and outpatient psychiatrist prior to making adjustments, as he does have fairly severe mental health symptoms that may worsen with a lower dose of antipsychotic. Recommendations (1) Bipolar II disorder For now, recommend continuing home dose of risperidone 2 mg every morning and 4 mg daily at bedtime and lamotrigine 200 mg twice a day. I left a message for his and his outpatient psychiatrist regarding the risperidone increase at the end of August, to try to determine if he had any sedation or slowing on that dose at home, prior to his fall and the addition of narcotic pain medications. Consider discontinuing other sedating medications, including trazodone and alprazolam, and agree with decreasing the Percocet dose. (2) Generalized anxiety disorder Continue home dose of buspirone. CPT Code Initial Hospital Care: [id number]
--- NOTE | 2016-10-09 15:14 | Psychiatric Consultation ---
Consultation Date of Consultation October 09, 2016. Identifying Data Jeff Stiles is a 70-year-old male who currently lives in [place] with his , has a history of bipolar disorder and anxiety treated by Dr. Alvares at [facility], and presented to the emergency room 10/03/2016 after a fall at home. He is admitted to the family medicine service, and psychiatry is consulted for medication evaluation in the context of bradykinesia. Chief Complaint "I don't have nothin' to do". History of Present Illness The patient is known to me from a hospitalization on our behavioral health unit in November 2015 for a suicide attempt by overdose on Ambien and [place] in the context of severe stress at home, as his adult daughter is a heroin addict and had been staying with them, causing a lot of tension in the home. Multiple family meetings were held with his , one with his son, and his daughter was invited, but never attended. His family described him as angry and bitter with a bad temper. He was started on BuSpar, but then stopped it as he didn't feel it was effective, and lurasidone and gabapentin were increased. He was referred for multiple outpatient supports, including [facility] management, therapist, a blended disease case manager, and an office of aging referral. He was discharged home to follow up with his outpatient providers. Since then , he's continued to see Dr. Mares, whom he last saw 08/29/2016, at which time he reported worsening mood and anxiety for which Ativan had been ineffective. The Ativan was discontinued, and his risperidone was increased to 2 mg in the morning and 4 mg at bedtime. He was to follow up in 6 weeks, but missed that appointment due to his current hospitalization. He presented to our emergency room 6 days ago after he fell at home when he got up to use the bathroom at night and was found on the floor by family. He has reported shoulder pain here , physical therapy has been consulted and the recommendations are for inpatient rehabilitation, and he has been receiving pain medication (initially morphine IV , and now oral Percocet). He was seen by pain management this morning, and was noted to be sedated, so his Percocet dose was decreased. On my assessment, he is noticeably slowed, with long pauses before answering questions, at times not answering at all. He states that his mood was "better" prior to hospitalization , but has been "sort of low" since he's been here, as he doesn't like being in the hospital and would prefer to be at home doing yard work area he understands the recommendations are to go to [facility] to regain his strength, and is willing to pursue this. He reports ongoing stress at home around his daughter who is a heroin addict, stating that they don't know where she is currently and haven't heard from her and a week or two, and also due to his 's medical problems. He is not sure if he was feeling slowed prior to coming into the hospital, but admits that his thinking is currently slowed and at times he feels he can't retain his thoughts long enough to express them. He also reports memory problems, which have been going on for some time, but can't be more specific. Although he told the liaison nurse that he was hearing and seeing things, on my assessment, he denies this, but also states that he cannot recall what happening to him from moment to moment. He endorses passive suicidal thoughts "from time to time," where he thinks "it would be easier to karimi in," but denies plan or intent to harm himself. He denies manic symptoms. He does endorse anxiety, which has been worse at night, and is poorly able to describe it, stating "it's hard to explain." He endorses feeling bored here in the hospital. Reviewed with Dr. Alvares, who states that the patient has significant thought blocking and delays in speech in response to questions which has gone on for several months and predated the increase in his risperidone. He has agitation and ideas of reference, believing that messages on television are directed towards him, and has been very stressed with psychosocial issues in the home revolving around his daughter as stated above. At times he has pushed for benzodiazepines for anxiety, which should be limited due to risk of abuse and his cognitive impairment, as well as the increased fall risk. Past Psychiatric History Current OP Treatment: psychiatrist (Dr. Alvares at [facility]) Prior Psych Hospitalizations: [facility] (November 2015), other (at least 2 admissions to [facility] in 2015) Access to a Gun: No Suicide Attempts: Yes (overdose in November 2015) Past Medication Trials Quetiapine, duloxetine, sertraline, paliperidone, lurasidone, aripiprazole, olanzapine Additional Notes He was referred for therapy at [facility], blended case management through [facility], and [facility] med management on discharge from our behavioral health unit last November; unclear if he is still has any of these services. Allergies Allergies: Coded Allergies: Pregabalin (Unverified Allergy, Severe, SUICIDAL, 10/03/16) Celecoxib (Verified Allergy, Unknown, RASH, 10/03/16) Ibuprofen (Verified Allergy, Unknown, RASH, 10/03/16) Quetiapine (Unverified Allergy, Unknown, UNKNOWN, 10/03/16) Home Medications Scheduled Amlodipine (Norvasc), 10 MG PO QAM Atorvastatin (Lipitor), 40 MG PO QPM Buspirone HCl (Buspirone HCl), 15 MG PO TID Gabapentin (Gabapentin), 600 MG PO HS Gabapentin (Neurontin), 300 MG PO TID Lamotrigine (Lamictal), 200 MG PO BID Levothyroxine Sodium (Synthroid), 50 MCG PO QAM Losartan Potassium (Cozaar), 100 MG PO QAM Melatonin (Melatonin), 3 MG PO HS Metoprolol Succinate (Toprolxl (Toprol-Xl), 200 MG PO DAILY Multivitamin (Multivitamin), 1 TAB PO QAM Risperidone (Risperdal), 2 MG PO QAM Risperidone (Risperdal), 4 MG PO QPM Ropinirole (Requip), 2 MG PO HS Scheduled PRN Trazodone HCl (Trazodone HCl), 50 MG PO HS PRN for INSOMNIA Trazodone Hcl (Trazodone), 100 MG PO HS PRN for Insomnia Family History Patient reports no known family medical history. 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 Examination Vital Signs Vital Signs Past 12 Hours Date Time Temp Pulse Resp B/P Pulse Ox O2 Delivery O2 Flow Rate FiO2 10/09/16 08:00 Room Air 10/09/16 07:50 36.5 57 20 110/68 92 10/09/16 07:34 62 Laboratory Results Last 24 Hours Test 10/09/16 05:53 White Blood Count 5.45 K/uL Red Blood Count 4.82 M/uL Hemoglobin 13.8 g/dL Hematocrit 42.2 % Mean Corpuscular Volume 87.6 fL Mean Corpuscular Hemoglobin 28.6 pg Mean Corpuscular Hemoglobin Concent 32.7 g/dl RDW Standard Deviation 41.5 fL RDW Coefficient of Variation 12.9 % Platelet Count 182 K/uL Mean Platelet Volume 8.1 fL Creatinine 1.20 mg/dl Est Creatinine Clear Calc Drug Dose 64.2 ml/min Estimated GFR () 70.6 Estimated GFR (Non- 60.9 Mental Examination During interview pt is: alert and oriented (oriented 10/10), cooperative Appearance: appropriately groomed, appeared stated age Eye contact is: poor Motor behavior is: psychomotor retardation Speech: other (minimal, delayed, slow) Affect: constricted (to sedated) Mood is: other ("sort of low") Thought process: goal directed, blocking Thought content: reality based without delusions Suicidal thought are: present (endorses passive suicidal thoughts which are at baseline; denies plan or intent to harm himself), Plan: denied, Intent: denied Homicidal thoughts are: denied Hallucinations: denies auditory, denies visual Cognition: other (all spheres impaired) Intelligence estimated to be: consistent with level of education Insight: fair Judgement: fair Impression / Recommendations Impression 70-year-old white male with a history of bipolar disorder and generalized anxiety disorder who is admitted after a fall. Psychiatry is consulted for bradykinesia and possible contribution of psychiatric medications. He is markedly slowed, both physically and mentally, and it is difficult to determine how much of this is due to medications (now on scheduled opiate pain medications as well as alprazolam when necessary and trazodone) versus psychotropic drugs versus a potential neurologic condition, as he is also being evaluated for a movement disorder and worsening memory. Based on information from his outpatient psychiatrist, I think it is unlikely that the increased dose of risperidone is contributing, but I would also like to get more information from his as to any slowing she may have noticed over the past month prior to hospitalization. He does have severe mental health symptoms that may worsen with a lower dose of antipsychotic, and he himself was worried about decreasing the dose when we discussed it, so I am reluctant to decrease this medication. Risk Factors Assessment Access to guns: No Recommendations (1) Bipolar II disorder For now, recommend continuing home dose of risperidone 2 mg every morning and 4 mg daily at bedtime and lamotrigine 200 mg twice a day. I left a message for his , to try to determine if he had any sedation or slowing at home prior to hospitalization since increasing the dose of risperidone at the end of August. Consider discontinuing other sedating medications, including trazodone and alprazolam, and agree with decreasing the Percocet dose. He is refusing to sign release of information so that records can be sent to his outpatient psychiatrist, Dr. Alvares, but we will continue to work with him on this, due to the importance of coordination of care and accurate medication lists. We will need to reschedule his outpatient appointment, as he has missed it due to being in the hospital. (2) Generalized anxiety disorder Continue home dose of buspirone.
[2016-10-09] MEDS: ALPRAZOLAM 0.25 MG TAB PO PRN (15:54)
[2016-10-09 16:08] VITALS: BP 162/73; PULSE 69; TEMP 36.7; O2SAT 95
[2016-10-09] MEDS ORDERED: BISACODYL 10 MG SUPP PR STA (16:53)
[2016-10-09] MEDS ORDERED: TRAZODONE HCL 100 MG TAB PO PRN (17:00)
[2016-10-09] MEDS: ATORVASTATIN 20 MG TAB PO SCH (20:50)
[2016-10-09] MEDS: GABAPENTIN 600 MG TAB PO SCH (20:50)
[2016-10-09] MEDS: ROPINIROLE HCL 1 MG TAB PO SCH (20:51)
[2016-10-09] MEDS: ENOXAPARIN 40 MG/0.4 ML SYR SQ SCH (20:52)
[2016-10-09] MEDS ORDERED: ALPRAZOLAM 0.25 MG TAB PO PRN (23:00)
[2016-10-09] MEDS ORDERED: NURSING VERBAL MED ORDER ONE (23:45)
[2016-10-09 23:54] VITALS: BP 134/76; PULSE 63; TEMP 36.7; O2SAT 92
[2016-10-10] MEDS: OXYCODONE/ACETAMINOPHEN 5-325 TAB PO SCH ×3 (06:19→17:40)
[2016-10-10] MEDS: LEVOTHYROXINE 50 MCG TAB PO SCH (06:20)
[2016-10-10 07:31] VITALS: BP 129/76; PULSE 64; TEMP 37.2; O2SAT 90
[2016-10-10] MEDS: METOPROLOL SUCC 50MG EXT REL TAB PO SCH (08:41)
[2016-10-10] MEDS: LIDODERM (LIDOCAINE) PATCH 5% TD SCH (08:42)
[2016-10-10] MEDS: MULTIVITAMIN TAB PO SCH (08:43)
[2016-10-10] MEDS: BusPIRone 15 MG TAB PO SCH ×3 (08:43→20:28)
[2016-10-10] MEDS: GABAPENTIN 300 MG CAP PO SCH ×3 (08:43→20:29)
[2016-10-10] MEDS: RISPERIDONE 2 MG TAB PO SCH ×2 (08:43→20:29)
[2016-10-10] MEDS: DOCUSATE SODIUM 100 MG CAP PO SCH ×2 (08:44→20:28)
[2016-10-10 15:51] VITALS: BP 110/73; PULSE 65; TEMP 36.7; O2SAT 93
[2016-10-10 16:00] VITALS: O2SAT 93
[2016-10-10] MEDS: ENOXAPARIN 40 MG/0.4 ML SYR SQ SCH (20:27)
[2016-10-10] MEDS: ROPINIROLE HCL 1 MG TAB PO SCH (20:27)
[2016-10-10] MEDS: GABAPENTIN 600 MG TAB PO SCH (20:27)
[2016-10-10] MEDS: ATORVASTATIN 20 MG TAB PO SCH (20:28)
--- NOTE | 2016-10-10 21:24 | Family Medicine Progress Note ---
Progress Note Date of Service October 10, 2016. Subjective Pt evaluation today including: conversation w/ patient, physical exam, chart review, lab review Patient a little bit more conversive and pensive today. He says he has ongoing back pain, but otherwise denies CP and SOB. He continues to deny current thoughts of self harm. He is keen for discharge from hospital. Constitutional: No chills, No fever Respiratory: No shortness of breath Cardiovascular: No chest pain, No palpitations Abdomen: No pain Musculoskeletal: + muscle pain, No joint pain Male : No dysuria Objective Vital Signs Date Time Temp Pulse Resp B/P Pulse Ox O2 Delivery O2 Flow Rate FiO2 10/10/16 16:00 93 Room Air 10/10/16 15:51 36.7 65 18 110/73 93 Room Air 10/10/16 10:30 Room Air 10/10/16 07:31 37.2 64 20 129/76 90 10/10/16 00:06 Room Air 10/09/16 23:54 36.7 63 18 134/76 92 Room Air Physical Exam General Appearance: WD/WN, no apparent distress ENT: hearing grossly normal Respiratory/Chest: lungs clear, normal breath sounds, no respiratory distress, no accessory muscle use Cardiovascular: regular rate, rhythm, no murmur Abdomen: normal bowel sounds, non tender, soft Extremities: normal inspection, no pedal edema, no calf tenderness Neurologic/Psychiatric: alert, oriented x 3, + depressed affect Skin: normal color, warm/dry, no rash Assessment and Plan 60 year old male with a history of depression, multiple suicide attempts, hypertension, and HLD that presents with right sided back pain Right upper back pain after fall - ongoing symptoms, improved with analgesia. Some sedation and constipation associated with high dose, and thus will reduce to PRN Ribs with Chest X-Ray (10/06) no acute fractures. - Percocet 5/325 q6h PRN pain - Lidoderm Patch - Gabapentin for neuropathic pain Constipation - Aggressive bowel regimen, patient had bowel movements yesterday - Miralax QID, Colace BID, bisacodyl suppository Fall - at home. Movement is very bradykinetic and concern of psychiatric medication contributing to it. Also has appointment with neurology (Dr. Corea) as outpatient next month to evaluate movement ds. Psych consulted - recs appreciated. Discontinued alprazolam. - PT/OT - recommend inpatient rehab Hypotension with positive orthostasis - Likely contributed to fall. Blood pressure currently stable - Metoprolol 200mg PO Daily - Losartan 100mg qAM - Amlodipine held Hypothyroidism - TSH WNL last checked 05/19 - Synthroid 50mcg PO Bipolar ds/Anxiety - Psych consulted - recs appreciated. Discontinued alprazolam. - Risperidone 2mg qAM and 4mg HS, and lamotrigine 200 mg BID for Bipolar - Buspar for Anxiety Insomnia - Trazodone 100mg HS HLD - Atorvastatin 40mg HS DVT - Lovenox Dispo - To [facility] upon approval Continued [facility] stay due to: home environment unsafe for pt Discharge planning: rehab hospital Resident Tracking Resident Involvement: Resident Care Provided Care Provided: Adult Hospital Medicine Reviewed: Pt Seen/Exam by Me History Resident Physician Supervision Note: I interviewed and examined the patient. Discussed with Dr. Barajas and agree with findings and plan as documented in the note. Any exceptions or clarifications are listed here: Patient very sleepy but does wake up and answer some questions today. He denies any pain. He has urinated since his Armendariz was removed. Vitals reviewed NAD, sitting up in bed, masked facies RRR no mgr CTAB no wcr MSK- +TTP over right posterior axillary region of thorax without mass or ecchymosis, no crepitus, 5/5 strength throughout upper exts bilat 70 yo male with bipolar disorder and fall secondary possibly to orthostatic hypotension and medication side effects. Constipation is resolved, has passed voiding trial given urinary retention. -no fractures on fall, contusion -continue percocet and change to when necessary given excessive sedation and f/ u with PM as outpt if needed -PT/OT -Appreciate Psychiatry consult and will stop xanax, but pt wants to continue his trazadone -Continue bowel regimen -Watch for further urinary attention -Hopeful for discharge to acute rehabilitation Documented By: Sara Tryo
[2016-10-10 23:36] VITALS: BP 118/72; PULSE 60; TEMP 36.8; O2SAT 92
[2016-10-11] MEDS: LEVOTHYROXINE 50 MCG TAB PO SCH (06:22)
[2016-10-11 07:12] VITALS: BP 114/73; PULSE 67; TEMP 36.6; O2SAT 91
--- NOTE | 2016-10-11 07:28 | Family Medicine Progress Note ---
Progress Note Date of Service October 11, 2016. Subjective Pt evaluation today including: conversation w/ patient, physical exam, chart review, lab review Patient a more conversive today and even smiling a little. He says he has ongoing back pain, but otherwise denies CP and SOB. He had some urinary retention overnight requiring straight cath, which he has said he never had prior to admission. He continues to deny current thoughts of self harm. He is keen for discharge from hospital. Constitutional: No chills, No fever Respiratory: No shortness of breath Cardiovascular: No chest pain, No palpitations Abdomen: No pain, No nausea Musculoskeletal: + muscle pain, No joint pain Male : No dysuria Objective Vital Signs Date Time Temp Pulse Resp B/P Pulse Ox O2 Delivery O2 Flow Rate FiO2 10/11/16 07:12 36.6 67 20 114/73 91 Room Air 10/11/16 00:00 Room Air 10/10/16 23:36 36.8 60 20 118/72 92 Room Air 10/10/16 16:00 93 Room Air 10/10/16 15:51 36.7 65 18 110/73 93 Room Air 10/10/16 10:30 Room Air 10/10/16 07:31 37.2 64 20 129/76 90 Physical Exam General Appearance: WD/WN, no apparent distress Eyes: normal inspection ENT: hearing grossly normal Neck: supple Respiratory/Chest: lungs clear, normal breath sounds, no respiratory distress, no accessory muscle use Cardiovascular: regular rate, rhythm, no murmur Abdomen: normal bowel sounds, non tender, soft Extremities: normal inspection, no pedal edema, no calf tenderness Neurologic/Psychiatric: alert, + depressed affect Skin: normal color, warm/dry, no rash Assessment and Plan 60 year old male with a history of depression, multiple suicide attempts, hypertension, and HLD that presents with right sided back pain Right upper back pain after fall - ongoing symptoms, improved with analgesia. Some sedation and constipation associated with high dose, and thus analgesia reduced to PRN Ribs with Chest X-Ray (10/06) no acute fractures. - Percocet 5/325 q6h PRN pain - Lidoderm patch - Gabapentin for neuropathic pain Constipation - Aggressive bowel regimen, patient had bowel movements yesterday - Miralax QID, Colace BID Urinary retention - likely secondary to Percocet usage. - Percocet changed to PRN - Tamsulosin 0.4mg HS - Bladder scan q shift, with plans to re-insert Armendariz if volume >350ml Fall - at home. Movement is very bradykinetic and concern of psychiatric medication contributing to it. Also has appointment with neurology (Dr. Corea) as outpatient next month to evaluate movement ds. Psych consulted - recs appreciated. Discontinued alprazolam. - PT/OT - recommend inpatient rehab Hypotension with positive orthostasis - Likely contributed to fall. Blood pressure currently stable - Metoprolol 200mg PO Daily - Losartan and amlodipine held Hypothyroidism - TSH WNL last checked 05/19 - Synthroid 50mcg PO Bipolar ds/Anxiety - Psych consulted - recs appreciated. Discontinued alprazolam. - Risperidone 2mg qAM and 4mg HS, and lamotrigine 200 mg BID for Bipolar - Buspar for Anxiety Insomnia - Trazodone 100mg HS HLD - Atorvastatin 40mg HS DVT - Lovenox Dispo - Insurance denied transfer to [facility] - appeal in process - [facility] Continued [facility] stay due to: home environment unsafe for pt Discharge planning: rehab hospital, [facility] facility Resident Tracking Resident Involvement: Resident Care Provided Care Provided: Adult Hospital Medicine Reviewed: Pt Seen/Exam by Me History Resident Physician Supervision Note: I interviewed and examined the patient. Discussed with Dr. Barajas and agree with findings and plan as documented in the note. Any exceptions or clarifications are listed here: Much more awake and alert today. Asked why he was admitted and why he's been here so. Having a lot of anxiety and asking for something right away, reports that lorazepam 0.5 mg is not can do anything for him as it is too low a dose. Vitals reviewed NAD, sitting up in bed, masked facies RRR no mgr CTAB no wcr MSK- +TTP over right posterior axillary region of thorax without mass or ecchymosis, no crepitus, 5/5 strength throughout upper exts bilat 70 yo male with bipolar disorder and fall secondary possibly to orthostatic hypotension and medication side effects. Constipation is resolved, has passed voiding trial given urinary retention. -no fractures on fall, contusion -continue percocet prn and given excessive sedation when was being given on a scheduled every 6 regimen, and f/u with PM as outpt if needed -PT/OT and needs rehabilitation placement -Appreciate Psychiatry consult and will stop xanax, but pt wants to continue his trazadone-had to add back lorazepam when necessary today-appreciate any further psychiatric recommendations -Continue bowel regimen -Watch for further urinary attention -Hopeful for discharge to acute rehabilitation Documented By: Sara Troy
[2016-10-11] MEDS ORDERED: TAMSULOSIN HCL 0.4 MG CAP PO SCH (08:00)
[2016-10-11] MEDS: OXYCODONE/ACETAMINOPHEN 5-325 TAB PO PRN (08:20)
[2016-10-11] MEDS: RISPERIDONE 2 MG TAB PO SCH ×2 (08:20→20:48)
[2016-10-11] MEDS: METOPROLOL SUCC 50MG EXT REL TAB PO SCH (08:21)
[2016-10-11] MEDS: DOCUSATE SODIUM 100 MG CAP PO SCH ×2 (08:21→20:49)
[2016-10-11] MEDS: GABAPENTIN 300 MG CAP PO SCH ×3 (08:21→20:49)
[2016-10-11] MEDS: BusPIRone 15 MG TAB PO SCH ×3 (08:21→20:48)
[2016-10-11] MEDS: MULTIVITAMIN TAB PO SCH (08:21)
[2016-10-11] MEDS: LIDODERM (LIDOCAINE) PATCH 5% TD SCH (08:21)
[2016-10-11 15:36] VITALS: BP 111/67; PULSE 64; TEMP 36.8; O2SAT 91
[2016-10-11 16:00] VITALS: O2SAT 91
[2016-10-11] MEDS ORDERED: LORAZEPAM 0.5 MG TAB PO ONE (18:00)
[2016-10-11] MEDS: ENOXAPARIN 40 MG/0.4 ML SYR SQ SCH (20:00)
[2016-10-11] MEDS: ATORVASTATIN 20 MG TAB PO SCH (20:47)
[2016-10-11] MEDS: GABAPENTIN 600 MG TAB PO SCH (20:48)
[2016-10-11] MEDS: ROPINIROLE HCL 1 MG TAB PO SCH (20:48)
[2016-10-11 23:21] VITALS: BP 119/72; PULSE 54; TEMP 36.5; O2SAT 94
[2016-10-12 05:33] LABS: HEMATOCRIT 41.6 % (42-52); MEAN CELL VOLUME 87.8 fL (80-100); MEAN CORPUSCULAR HEMOGLOBIN 28.9 pg (25-34); MEAN CORPUSCULAR HGB CONC 32.9 g/dl (32-36); MEAN PLATELET VOLUME 7.9 fL (7.4-10.4); PLATELET COUNT 186 K/uL (130-400); RED BLOOD COUNT 4.74 M/uL (4.7-6.1); WHITE BLOOD COUNT 5.49 K/uL (4.8-10.8)
[2016-10-12 06:00] LABS: CREATININE 1.2 mg/dl (0.60-1.40)
[2016-10-12] MEDS: LEVOTHYROXINE 50 MCG TAB PO SCH (06:17)
[2016-10-12 07:22] VITALS: BP 136/78; PULSE 58; TEMP 36.5; O2SAT 96
[2016-10-12] MEDS: BusPIRone 15 MG TAB PO SCH ×3 (09:07→20:24)
[2016-10-12] MEDS: RISPERIDONE 2 MG TAB PO SCH ×2 (09:07→20:25)
[2016-10-12] MEDS: LIDODERM (LIDOCAINE) PATCH 5% TD SCH (09:08)
[2016-10-12] MEDS: DOCUSATE SODIUM 100 MG CAP PO SCH ×2 (09:08→20:25)
[2016-10-12] MEDS: GABAPENTIN 300 MG CAP PO SCH ×3 (09:08→20:24)
[2016-10-12] MEDS: METOPROLOL SUCC 50MG EXT REL TAB PO SCH (09:08)
[2016-10-12] MEDS: MULTIVITAMIN TAB PO SCH (09:08)
[2016-10-12] MEDS: LORAZEPAM 0.5 MG TAB PO PRN ×2 (09:19→15:57)
[2016-10-12 15:32] VITALS: BP 133/73; PULSE 67; TEMP 36.8; O2SAT 94
--- NOTE | 2016-10-12 16:36 | Family Medicine Progress Note ---
Progress Note Date of Service October 12, 2016. Subjective Pt evaluation today including: conversation w/ patient, physical exam, chart review, lab review Patient minimally conversive today, but responding appropriately. He says his back pain is not that bad today and otherwise denies CP and SOB. He continues to deny current thoughts of self harm, but admits that he feels "down in the dumps" because he is still here. He is keen for discharge from hospital. Constitutional: No chills, No fever Respiratory: No cough, No shortness of breath Cardiovascular: No chest pain, No palpitations Abdomen: No constipation, No nausea, No pain Musculoskeletal: + muscle pain (improved) Male : No dysuria Objective Vital Signs Date Time Temp Pulse Resp B/P Pulse Ox O2 Delivery O2 Flow Rate FiO2 10/12/16 16:00 Room Air 10/12/16 15:32 36.8 67 20 133/73 94 Room Air 10/12/16 08:30 Room Air 10/12/16 07:22 36.5 58 20 136/78 96 Room Air 10/12/16 00:00 Room Air 10/11/16 23:21 36.5 54 20 119/72 94 Room Air Physical Exam General Appearance: WD/WN, no apparent distress Eyes: normal inspection ENT: hearing grossly normal Neck: supple Respiratory/Chest: lungs clear, no respiratory distress, no accessory muscle use, + decreased breath sounds (poor inspiratory effort) Cardiovascular: regular rate, rhythm, no murmur Abdomen: normal bowel sounds, non tender, soft Extremities: normal inspection, no pedal edema, no calf tenderness Neurologic/Psychiatric: alert, + depressed affect Skin: normal color, warm/dry, no rash Laboratory Results Results Past 24 Hours Test 10/12/16 05:24 Range/Units White Blood Count 5.49 4.8-10.8 K/uL Red Blood Count 4.74 4.7-6.1 M/uL Hemoglobin 13.7 14.0-18.0 g/dL Hematocrit 41.6 42-52 % Mean Corpuscular Volume 87.8 80-100 fL Mean Corpuscular Hemoglobin 28.9 25-34 pg Mean Corpuscular Hemoglobin Concent 32.9 32-36 g/dl RDW Standard Deviation 42.5 36.4-46.3 fL RDW Coefficient of Variation 13.1 11.5-14.5 % Platelet Count 186 130-400 K/uL Mean Platelet Volume 7.9 7.4-10.4 fL Creatinine 1.20 0.60-1.40 mg/dl Est Creatinine Clear Calc Drug Dose 64.2 ml/min Estimated GFR () 70.6 Estimated GFR (Non- 60.9 Assessment and Plan 60 year old male with a history of depression, multiple suicide attempts, hypertension, and HLD that presents with right sided back pain Right upper back pain after fall - improved symptoms, no Percocet required in 24 hours Ribs with Chest X-Ray (10/06) no acute fractures. - Percocet 5/325 q6h PRN pain - Lidoderm patch - Gabapentin for neuropathic pain Anemia - down trending Hb noted. Normocytic. - Iron studies: TIBC, transferrin saturation, ferritin, iron, retic count, B12, folate, FOBT - Trend H/H Constipation - Aggressive bowel regimen, patient is having bowel movements daily - Miralax QID, Colace BID Urinary retention - likely secondary to Percocet usage, currently improved - Tamsulosin 0.4mg HS - Bladder scan q shift, with plans to re-insert Armendariz if volume >350ml Fall - at home. Movement is very bradykinetic and concern of psychiatric medication contributing to it. Also has appointment with neurology (Dr. Corea) as outpatient next month to evaluate movement ds. Psych consulted - recs appreciated. - PT/OT - recommend inpatient rehab Hypotension with positive orthostasis - Likely contributed to fall. Blood pressure currently stable - Metoprolol 200mg PO Daily - Losartan and amlodipine held Hypothyroidism - TSH WNL last checked 05/19 - Synthroid 50mcg PO Bipolar ds/Anxiety - Psych consulted - recs appreciated. Discontinued alprazolam. - Risperidone 2mg qAM and 4mg HS, and lamotrigine 200 mg BID for Bipolar - Buspar and Lorazepam PRN for Anxiety Insomnia - Trazodone 100mg HS HLD - Atorvastatin 40mg HS DVT - Lovenox Dispo - Insurance denied transfer to [facility] - appeal in process - Referrals sent to SNFs [facility] and [facility] - awaiting response Continued [facility] stay due to: home environment unsafe for pt Discharge planning: rehab hospital, care home facility Resident Tracking Resident Involvement: Resident Care Provided Care Provided: Adult Hospital Medicine Reviewed: Pt Seen/Exam by Me History Resident Physician Supervision Note: I interviewed and examined the patient. Discussed with Dr. Barajas and agree with findings and plan as documented in the note. Any exceptions or clarifications are listed here: Patient's main complaint is significant anxiety, he is restless, states that lorazepam 0.[address] to lower the dose Vitals reviewed NAD, sitting up in bed, masked facies RRR no mgr CTAB no wcr 70 yo male with bipolar disorder and fall secondary possibly to orthostatic hypotension and medication side effects. Constipation is resolved, has passed voiding trial given urinary retention. Pain much improved, it is just fairly deconditioned at this point and dealing with psychiatric issues -no fractures on fall, contusion -continue percocet prn and given excessive sedation when was being given on a scheduled every 6 regimen, and f/u with PM as outpt if needed -PT/OT and needs rehabilitation placement -Appreciate Psychiatry consult and will stop xanax, but pt wants to continue his trazadone-had to add back lorazepam when necessary as per patient's significant anxiety-any further psychiatric recommendations -Continue bowel regimen -Watch for further urinary attention -Hopeful for discharge to acute rehabilitation Documented By: Sara Troy
[2016-10-12] MEDS: GABAPENTIN 600 MG TAB PO SCH (20:24)
[2016-10-12] MEDS: ENOXAPARIN 40 MG/0.4 ML SYR SQ SCH (20:25)
[2016-10-12] MEDS: ATORVASTATIN 20 MG TAB PO SCH (20:25)
[2016-10-12] MEDS: ROPINIROLE HCL 1 MG TAB PO SCH (20:25)
[2016-10-12] MEDS ORDERED: TAMSULOSIN HCL 0.4 MG CAP PO SCH (21:00)
[2016-10-12 23:59] VITALS: BP 108/74; PULSE 50; TEMP 36.7; O2SAT 93
[2016-10-13 05:37] LABS: HEMATOCRIT 42.3 % (42-52)
[2016-10-13] MEDS: LEVOTHYROXINE 50 MCG TAB PO SCH (05:56)
[2016-10-13 06:23] LABS: FERRITIN 180.3 ng/ml (8.0-388.0)
[2016-10-13 07:02] VITALS: BP 129/80; PULSE 56; TEMP 36.8; O2SAT 92
[2016-10-13 08:45] VITALS: PULSE 72
[2016-10-13] MEDS: GABAPENTIN 300 MG CAP PO SCH ×2 (08:48→14:27)
[2016-10-13] MEDS: LORAZEPAM 0.5 MG TAB PO PRN (08:48)
[2016-10-13] MEDS: METOPROLOL SUCC 50MG EXT REL TAB PO SCH (08:48)
[2016-10-13] MEDS: DOCUSATE SODIUM 100 MG CAP PO SCH (08:49)
[2016-10-13] MEDS: BusPIRone 15 MG TAB PO SCH ×2 (08:50→14:27)
[2016-10-13] MEDS: LIDODERM (LIDOCAINE) PATCH 5% TD SCH (08:50)
[2016-10-13] MEDS: MULTIVITAMIN TAB PO SCH (08:50)
[2016-10-13] MEDS: RISPERIDONE 2 MG TAB PO SCH (08:50)
--- NOTE | 2016-10-13 09:14 | Family Medicine Progress Note ---
Progress Note Date of Service October 13, 2016. Objective Vital Signs Date Time Temp Pulse Resp B/P Pulse Ox O2 Delivery O2 Flow Rate FiO2 10/13/16 08:45 72 10/13/16 07:02 36.8 56 20 129/80 92 Room Air 10/13/16 04:00 Room Air 10/13/16 00:00 Room Air 10/12/16 23:59 36.7 50 18 108/74 93 Room Air 10/12/16 19:45 Room Air 10/12/16 16:00 Room Air 10/12/16 15:32 36.8 67 20 133/73 94 Room Air Resident Tracking Resident Involvement: Resident Care Provided Care Provided: Adult Hospital Medicine
[2016-10-13] MEDS: OXYCODONE/ACETAMINOPHEN 5-325 TAB PO PRN (09:16)
[2016-10-13] MEDS ORDERED: CLC100 PO (11:54)
[2016-10-13] MEDS ORDERED: OXYC-57 PO (11:54)
[2016-10-13] MEDS ORDERED: FLM4 PO (11:54)
[2016-10-13] MEDS ORDERED: MRLP17X PO (11:54)
[2016-10-13] MEDS ORDERED: ACET325T96 PO (11:54)
[2016-10-13] MEDS ORDERED: ATV5 PO (11:54)
[2016-10-13] MEDS ORDERED: LDDP5 TD (11:54)
--- NOTE | 2016-10-13 11:58 | Discharge Instructions ---
Discharge Instructions Date of Service October 13, 2016. Admission Reason for Admission: Back Pain Discharge Discharge Diagnosis / Problem: Back pain, parkinsonian signs Discharge Goals Goal(s): Decrease discomfort, Improve disease control, Learn about illness, Therapeutic intervention Activity Recommendations Activity Level: Assistance Required Therapies: Physical Therapy, Occupational Therapy Weightbearing Status: Left weightbearing (as tolerated), Right weightbearing ( as tolerated) Lifting Limitations: none Exercise/Sports Limitations: none . Additional Information Patient informed of condition: Yes Advance Directives: No DNR: No Level of Care: Acute Rehab Communicable Disease: No Prognosis: Stable Oxygen at (LPM): N/A Armendariz Catheter: No Instructions / Follow-Up Instructions / Follow-Up 60 year old male with a history of depression, multiple suicide attempts, hypertension, and HLD that presents with right sided back pain Right upper back pain after fall - improved symptoms Ribs with Chest X-Ray (10/06) no acute fractures. - Percocet 5/325 q8h PRN pain - infrequently requested - Lidoderm patch daily - Gabapentin for neuropathic pain Anemia - down trending Hb noted. Normocytic. Hb on discharge 14.0 - Iron studies: TIBC, transferrin saturation, ferritin, iron, retic count, B12, folate - WNL - Check CBC next week. 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 Movement is very bradykinetic. Psych consulted - recs appreciated. - PT/OT - recommend inpatient rehab . Appointment with neurology (Dr. Corea) as outpatient next month to evaluate movement ds Hypotension with positive orthostasis - Likely contributed to fall. Blood pressure currently stable - Metoprolol 200mg PO Daily - Losartan and amlodipine discontinued in view of acceptable blood pressure range without these antihypertensives - Routine blood pressures warranted to assess need for adding any further medications Hypothyroidism - TSH WNL last checked 05/19 - Synthroid 50mcg PO Bipolar ds/Anxiety - Psych consulted - recs appreciated - Risperidone 2mg qAM and 4mg HS, and lamotrigine 200 mg BID for Bipolar - Buspar and Lorazepam PRN for Anxiety Insomnia - Trazodone 100mg HS HLD - Atorvastatin 40mg HS DVT - Lovenox Current Hospital Diet Patient's current hospital diet: Regular Diet Discharge Diet Recommended Diet: Regular Diet Pending Studies Studies pending at discharge: no Physician Orders On Transfer Dressing Changes: No dressings. Lidoderm patch changes IV Therapy: N/A Vital Signs: Stable Weigh: Routine Additional Orders: Check CBC next week to monitor Hb, consider FOBT if downtrending. Appointment with Dr. Roberts (neurology) next month POLST Discussion: Not Applicable Laboratory Results Hemoglobin A1c Test 10/04/16 05:35 Range/Units Estimated Average Glucose 117 mg/dl Hemoglobin A1c 5.7 H 4.5-5.6 % Medical Emergencies . Who to Call and When: Medical Emergencies: If at any time you feel your situation is an emergency, please call 911 immediately. . Non-Emergent Contact Non-Emergency issues call your: Primary Care Provider . . "Provider Documentation" section prepared by Virgie Barajas. . Core Measure Problem Core Measures: None
--- NOTE | 2016-10-13 13:42 | Discharge Summary ---
Discharge Summary Date of Service October 13, 2016. (Alka. Barajas MD) Discharge Summary Admission Date: October 03, 2016 at 17:38 Discharge Date: October 13, 2016 Discharge Disposition: Rehab Principal Diagnosis: Back Pain, Parkinsonian symptoms (Alka. Barajas MD) Problems/Secondary Diagnoses: Major depressive disorder Bipolar disorder Generalized anxiety disorder History of multiple suicide attempts Hypertension HLD Right upper back pain Anemia-normocytic, likely secondary to blood draws Constipation Urinary retention Fall Orthostatic Hypotension Hypothyroidism Insomnia (Sara Troy MD) Medication Reconciliation New Medications: Acetaminophen Tab (Tylenol) 325 Mg Tab 650 MG PO Q4H PRN for Pain or Fever, #15 TAB Docusate Sodium (Docusate Sodium) 100 Mg Cap 100 MG PO BID for 30 Days, #60 CAP Lidocaine (Lidocaine) 1 Patch Tdsy 1 PATCH TD QAM for 14 Days, #14 PATCH Lorazepam (Lorazepam) 0.5 Mg Tab 0.5 MG PO Q8 PRN for Anxiety, #15 TAB Oxycodone/Acetaminophen 5MG/325MG (Percocet 5MG/325MG) Tab 1 TAB PO Q12 PRN for pain, #15 TAB PAIN Polyethylene (Miralax) 17 Gm Pow 17 GM PO DAILY PRN for Constipation for 30 Days, #30 EA Tamsulosin HCl (Tamsulosin HCl) 0.4 Mg Cap 0.4 MG PO HS for 30 Days, #30 CAP 2 Refills Continued Medications: Atorvastatin (Lipitor) 40 Mg Tab 40 MG PO QPM, 0 Refills Buspirone HCl (Buspirone HCl) 15 Mg Tab 15 MG PO TID Gabapentin (Gabapentin) 600 Mg Tab 600 MG PO HS for 30 Days, #30 TAB Gabapentin (Neurontin) 300 Mg Cap 300 MG PO TID, CAP Lamotrigine (Lamictal) 200 Mg Tab 200 MG PO BID, TAB Levothyroxine Sodium (Synthroid) 50 Mcg Tab 50 MCG PO QAM, #90 Melatonin (Melatonin) 3 Mg Cap 3 MG PO HS Metoprolol Succinate (Toprolxl (Toprol-Xl) 200 Mg Tabcr 200 MG PO DAILY, TAB Multivitamin (Multivitamin) Tab 1 TAB PO QAM, 0 Refills Risperidone (Risperdal) 2 Mg Tab 2 MG PO QAM, TAB Risperidone (Risperdal) 2 Mg Tab 4 MG PO QPM, TAB Ropinirole (Requip) 2 Mg Tab 2 MG PO HS, TAB Trazodone HCl (Trazodone HCl) 50 Mg Tab 50 MG PO HS PRN for INSOMNIA for 30 Days, #60 TAB Take 1-2 tabs at bedtime as needed for sleep. Trazodone Hcl (Trazodone) 100 Mg Tab 100 MG PO HS PRN for Insomnia, TAB Discontinued Medications: Amlodipine (Norvasc) 10 Mg Tab 10 MG PO QAM, 0 Refills Losartan Potassium (Cozaar) 100 Mg Tab 100 MG PO QAM, #90 Discharge Exam Patient denies any complaints. He is upset that he is still in hospital. Review of Systems: Constitutional: No chills, No fever Respiratory: No shortness of breath Cardiovascular: No chest pain, No palpitations Abdomen: No constipation, No diarrhea, No nausea, No pain, No vomiting Genitourinary - Male: No dysuria, No hematuria Psychiatric: + anxiety Physical Exam: General Appearance: WD/WN, no apparent distress Eyes: normal inspection ENT: hearing grossly normal Neck: supple Respiratory/Chest: lungs clear, normal breath sounds, no respiratory distress, no accessory muscle use Cardiovascular: regular rate, rhythm, no murmur Abdomen / GI: normal bowel sounds, non tender, soft Extremities: normal inspection, no calf tenderness, no pedal edema Neurologic/Psychiatric: alert, oriented x 3, + depressed affect Skin: normal color, warm/dry, no rash (Alka. Barajas MD) Hospital Course 60 year old male with a history of depression, multiple suicide attempts, hypertension, and HLD that presents with right sided back pain Right upper back pain after fall Ribs with Chest X-Ray (10/06) no acute fractures. - Percocet 5/325 q8h PRN pain - infrequently requested - Lidoderm patch daily - Gabapentin for neuropathic pain - PT and OT commenced - Pain symptoms gradually improved, although recurred sporadically Anemia - Hb 15.3 on admission - Down trending Hb noted to 13.7. Normocytic. - Iron studies: TIBC, transferrin saturation, ferritin, iron, retic count, B12, folate - WNL - Check CBC next week. Constipation - Patient was constipated for ~1week despite Colace. 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 - Psych consulted - recs appreciated. - PT/OT - recommend inpatient rehab - Appointment with neurology (Dr. Corea) as outpatient next month to evaluate movement ds Hypotension with positive orthostasis - Likely contributed to fall. - Losartan and amlodipine discontinued - Blood pressure currently stable without these antihypertensives - Continue Metoprolol 200mg PO Daily - Routine blood pressures warranted to assess need for adding back any medications Hypothyroidism - TSH WNL last checked 05/19 - Continue Synthroid 50mcg PO Bipolar ds/Anxiety - Psych consulted - recs appreciated - Continue Risperidone 2mg qAM and 4mg HS, and lamotrigine 200 mg BID for Bipolar - Continue Buspar and Lorazepam PRN for Anxiety Insomnia - Continue Trazodone 100mg HS HLD - Continue Atorvastatin 40mg HS DVT - Lovenox Total Time Spent: Less than 30 minutes This includes examination of the patient, discharge planning, medication reconciliation, and communication with other providers. (Alka. Barajas MD) Total Time Spent: Greater than 30 minutes (Sara Troy MD) Discharge Instructions Please refer to the electronic Patient Visit Report (Discharge Instructions) for additional information. (Alka. Barajas MD) Resident Tracking Resident Involvement: Resident Care Provided Care Provided: Adult [facility] Medicine (Alka. Barajas MD) Reviewed: Pt Seen/Exam by Me (Sara Troy MD) History Resident Physician Supervision Note: I interviewed and examined the patient. Discussed with Dr. Barajas and agree with findings and plan as documented in the note. Any exceptions or clarifications are listed here: Patient's main complaint is significant anxiety, anxious for discharge Vitals reviewed NAD, sitting up in bed, masked facies RRR no mgr CTAB no wcr 70 yo male with bipolar disorder and fall secondary possibly to orthostatic hypotension and medication side effects. Constipation is resolved, has passed voiding trial given urinary retention. Pain much improved, it is just fairly deconditioned at this point and dealing with psychiatric issues -no fractures on fall, contusion -continue percocet prn and given excessive sedation when was being given on a scheduled every 6 regimen, and f/u with PM as outpt if needed -PT/OT and needs rehabilitation placement -Appreciate Psychiatry consult and will stop xanax, but pt wants to continue his trazadone-had to add back lorazepam when necessary as per patient's significant anxiety-any further psychiatric recommendations -Continue bowel regimen -Watch for further urinary attention -for discharge to acute rehabilitation Documented By: Sara Troy (Sara Troy MD)
--- NOTE | 2016-10-13 13:48 | Psychiatric Progress Notes ---
Psychiatric Progress Note Date of Service October 13, 2016. Notes ID: Patient reviewed with liaison nurse. Initial consult completed by Dr. Aggarwal on 10/09. Outpatient of Dr. Rich maintained on Risperdal, Lamictal, buspar and trazodone (prn) for bipolar disorder. Recs were to avoid benzos if possible due to complaints of sedation following titration of Risperdal as outpatient. CC: "I can't stand being here" HPI: patient just received Ativan this am for anxiety as very upset about appeal for [employer], seemed a bit confused about "what's going on", also c/o left sided pain and had just received Percocet. ROS: pain and anxiety as above, no SI/HI/rachel MSE: alert, cooperative, oriented, thoughts concrete Imp: hx of bipolar disorder Plan: currently seems to be tolerating Risperdal but wasn't particularly cooperative with exam, if issues with sedation/braykinesia return would decrease am dose by 0.5 mg of Risperdal. Would attempt to avoid anticholinergics (ie Cogentin) given can contribute to delirium. hasn't required prn trazodone appears to have continues Summer ultimately did sign ELDON for Dr Rich, updated
[2016-10-13 14:31] VITALS: BP 129/80; PULSE 72; TEMP 36.8; O2SAT 92
== END 2016-10-13 15:15 ==
LOC: ENRESERVDT → ENRESERVTM → EDBD 12:02 → C.EDC 12:03 → C.4E 17:38 → EDBEDREQ 17:40
PROVIDERS: ADMIT Family Medicine; ATTEND Family Medicine
DX: M54.9 Dorsalgia, unspecified (principal); W19.XXXA Unspecified fall, initial encounter; F31.81 Bipolar II disorder; G20 Parkinson's disease; D64.9 Anemia, unspecified; K59.00 Constipation, unspecified; R33.9 Retention of urine, unspecified; G47.00 Insomnia, unspecified; Z79.899 Other long term (current) drug therapy; E11.9 Type 2 diabetes mellitus without complications; E78.5 Hyperlipidemia, unspecified; G25.81 Restless legs syndrome; I95.1 Orthostatic hypotension; M48.06 Spinal stenosis, lumbar region; E03.9 Hypothyroidism, unspecified; I10 Essential (primary) hypertension; Z91.5 Personal history of self-harm; Z87.891 Personal history of nicotine dependence

== ENCOUNTER → 2017-01-11 | Outpatient (CLI) | payer MEDICARE ==
[~2017-01-11] MED LIST changes: +ACET325T96 PO; -ALPHTAB9 PO; -AMLO-114 PO; +AMX500 PO; -ASPI81TA28 PO; +ATV5 PO; +BSP15 PO; +BXN500 PO; +CARB25TA12 PO; -CHOL20007 PO; +CLC100 PO; -COEN150C PO; +DSY/150 PO; +FLM4 PO; +GABA-113 PO; +GABA1CAP4 PO; -GLC/500 PO; -LAMO1TAB21 PO; +LAMO200T38 PO; +LDDP5 TD; -LTD40 PO; +MELA3CAP PO; +METH4PAK PO; -METO100T44 PO; +METO1TAB71 PO; +MRLP17X PO; -NRN300 PO; +NRV/10 PO; -OMEG10007 PO; +OXYC-57 PO; +PRT40 PO; +RISP2TAB22 PO; +ROPI2TAB6 PO; +RSP3 PO; -TPM/50 PO; +TRAZ100T29 PO
[2017-01-11 13:26] LABS: ESTIMATED AVERAGE GLUCOSE 117 mg/dl; HA1C FLAG Normal (Normal)
[2017-01-11 13:31] LABS: BASO % 0.7 %; BASO ABS # 0.05 K/uL (0-0.2); COMPLETE YES; EOS % 1.5 %; HEMATOCRIT 47.3 % (42-52); IG% 0.3 %; LYMPH % 30.8 %; LYMPH ABS # 2.11 K/uL (1.2-3.4); MEAN CELL VOLUME 86.6 fL (80-100); MEAN CORPUSCULAR HGB CONC 34.7 g/dl (32-36); MEAN PLATELET VOLUME 8.3 fL (7.4-10.4); MONO % 9.2 %; NEUT % 57.5 %; PLATELET COUNT 196 K/uL (130-400); RED BLOOD COUNT 5.46 M/uL (4.7-6.1); WHITE BLOOD COUNT 6.84 K/uL (4.8-10.8)
[2017-01-11 13:50] LABS: ALT/SGPT 33 U/L (12-78); AST/SGOT 13 U/L (15-37); BLOOD UREA NITROGEN 13 mg/dl (7-18); BUN/CREATININE RATIO 9.6 (10-20); CALCIUM 9.6 mg/dl (8.5-10.1); CARBON DIOXIDE 30 mmol/L (21-32); CHLORIDE 106 mmol/L (98-107); GLUCOSE 115 mg/dl (70-99); POTASSIUM 4.3 mmol/L (3.5-5.1); SODIUM 140 mmol/L (136-145)
[2017-01-11 14:00] LABS: ALB/GLOB RATIO 1.2 (0.9-2); ALKALINE PHOSPHATASE 115 U/L (45-117)
[2017-01-11 14:57] LABS: URINE APPEARANCE CLEAR (CLEAR); URINE BILIRUBIN NEG (NEG); URINE COLOR YELLOW; URINE EPITHELIAL CELL AUTO 0-5 /lpf (0-5); URINE NITRITE NEG (NEG); URINE SPECIFIC GRAVITY 1.015 (1.000-1.030); UROBILINOGEN NEG (NEG); ZZUR CULT IF INDIC CLEAN CATCH NO
[2017-01-11 15:00] LABS: MANUAL MICROSCOPIC REQUIRED? NO; REVIEW REQ? NO
--- NOTE | 2017-01-11 15:03 | DIAGNOSTIC IMAGING REPORT ---
VIDEO SWALLOW HISTORY: [id number] Aspiration of food TECHNIQUE: Video fluoroscopic evaluation of swallowing was performed in the AP and lateral projections by the speech pathology staff. The patient is fed nectar-thick and thin liquid barium, a barium coated wafer, and barium pudding. FLUOROSCOPY TIME: 2.9 minutes. NUMBER OF FLUOROSCOPY IMAGES: COMPARISON STUDY: Barium swallow dated 03/06/2014 FINDINGS: There is no aspiration or penetration when swallowing thin liquid barium, nectar thick liquid, or pudding. There is one episode of silent aspiration when swallowing mixed consistency. There is mild disordered esophageal motility. There is pharyngeal residue. IMPRESSION: 1. Single episode of silent aspiration when swallowing mixed consistency. 2. Please see the speech pathologist report for detailed findings and recommendations. Electronically signed by: Homer Alonso M.D. 01/11/2017 3:02 PM Dictated Date/Time: 01/11/2017 2:59 PM
[2017-01-11 15:21] LABS: RATIO 8.5 mcg/mg (0-30.0)
--- NOTE | 2017-01-11 15:51 | SWALLOWING EVALUATION ---
HISTORY: This 71 year-old man was referred for a VFSS at [facility] in order to rule out aspiration address c/o swallowing difficulty. He stated sometimes the food does not go all the way down and he coughs it back up and tries to re-swallow. The patient has a PMH significant for diabetes, HTN, hyperlipidemia, bipolar, spinal stenosis, RLS, anxiety. Currently the patient's diet level is regular. PROCEDURE: The patient was seen in the Radiology Department of [facility] for the VFSS. Cursory examination of the oral cavity revealed dentures (upper/lower). Movement of the articulators was WNL. The patient was seated upright in a wheelchair and was viewed in both the Anterior-Posterior (A-P) and Lateral planes. Volitional phonation exercises completed in the A-P plane revealed bilateral vocal fold movement and vocal intensity within functional limits. In the lateral plane, the patient was given the following boluses: 1 tsp. thin liquid barium x 2, single swallow thin liquid barium self-presented from a cup, sequential swallows of thin liquid barium self-presented from a cup, 1 tsp. nectar-thick liquid barium, single swallow nectar-thick liquid barium self-presented from a cup, sequential swallows nectar-thick liquid barium self-presented from a cup, 1 tsp. barium pudding, a thin liquid wash self-presented from a cup, and 1 club cracker with barium pudding. The patient was then repositioned into the A-P plane and given the following boluses: 1 tsp. nectar-thick liquid barium and 1 tsp. barium pudding. RESULTS: Oral Stage: Labial seal was adequate. Tongue held a cohesive bolus. Mastication was disorganized and solid pieces of the bolus unchewed after the initial swallow. There was delayed initiation of tongue motion, but once it started bolus swallowed normally. There was trace residue lining the tongue. Swallow was slightly delayed with bolus head in the valleculae at the initiation of the pharyngeal swallow. Oral stage was mildly impaired with oral residue on the tongue and a slightly delayed swallow, however, oral phase of swallow is functional for patient's age. Pharyngeal Stage: Soft palate elevation was complete. Laryngeal elevation was partial with partial superior movement of thyroid cartilage/partial approximation of the arytenoids to epiglottic petiole. There was partial anterior excursion of the hyoid. Epiglottic movement was complete. Laryngeal vestibular closure was incomplete with a narrow column of contrast in the laryngeal vestibule. Pharyngeal stripping wave was diminished. Pharyngeal contraction showed bilateral bulging. Pharyngoesophageal segment opening had partial distension/duration and partial obstruction of flow. Tongue base retraction was reduced with a narrow column of contrast between the tongue base and posterior pharyngeal wall. There was a collection of pharyngeal residue in the valleculae and in the pyriforms sinuses. There was one episode of aspiration that occurred while patient was chewing the cracker with barium pudding. This aspiration was SILENT. It is suspected that patient's saliva mixed with the pudding and spilled posteriorly from the oral cavity past the valleculae into the pyriforms sinuses which likely spilled over into the airway. There were no other episodes of aspiration during the study. Pharyngeal residue was cleared with a second swallow or a liquid wash. There was moderate pharyngeal weakness evidenced by reduced pharyngeal and tongue base retraction. There was reduced propulsion of the bolus through the pharyngeal cavity. Esophageal Stage: There was mild esophageal retention. SUMMARY/RECOMMENDATIONS: This patient presents with mild oral-pharyngeal dysphagia characterized by reduced pharyngeal strength and aspiration with mixed consistencies. The following is recommended: 1. Regular diet, thin liquids. Avoid thick, pasty foods. 2. Aspiration precautions: avoid mixed consistencies (foods that contain both liquids and solids: cereals, broth soups). Patient should be seated fully upright during meals. Take small bites and small sips. Alternate solids and liquids. 3. Patient would benefit from speech therapy services to address pharyngeal weakness and teach exercises to increase tongue base retraction and pharyngeal strength. A summary of the results and recommendations was discussed with patient and and understanding was verbalized. Thank you for referral of this patient. Please contact me at if any additional information is needed. Alla Rojas [facility]
--- NOTE | 2017-02-07 08:36 | CODING QUERY MEDICAL NECESSITY ---
CQSUPPORTING DIAGNOSIS NEEDED A supporting diagnosis is required for the test/procedure performed on this patient in order for us to be reimbursed by the patient's insurance. Please provide a supporting diagnosis for the following test/procedure listed below next to the test name along with your signature. *If there is no additional diagnosis for this patient that would support the following test/procedure please document that below next to the test/procedure. Test(s)/Procedure(s) that require a supporting diagnosis: DOS VITAMIN D TEST VITAMIN B12 TEST Provider Signature: Date: Thank you Annabelle Andres [employer] Once completed, please kindly fax back to [phone] For questions please call [phone]
== END | disposition home or self-care (01) ==
LOC: C.RAD 12:07
PROVIDERS: ATTEND Internal Medicine
DX: T17.890A Other foreign object in other parts of respiratory tract causing asphyxiation, initial encounter (principal); E11.49 Type 2 diabetes mellitus with other diabetic neurological complication; F99 Mental disorder, not otherwise specified; E03.9 Hypothyroidism, unspecified; N40.1 Benign prostatic hyperplasia with lower urinary tract symptoms; X58.XXXA Exposure to other specified factors, initial encounter; R53.83 Other fatigue

== ENCOUNTER 2017-01-16 16:38 | Emergency (ER) | payer MEDICARE ==
[~2017-01-16] VITALS: Ht 170.2 cm; Wt 93.3 kg
[~2017-01-16 16:38] MED LIST changes: -AMX500 PO; -BXN500 PO; -CARB25TA12 PO; -DSY/150 PO; -GABA1CAP4 PO; -LOSA100T65 PO; -METH4PAK PO; -NRV/10 PO; -PRT40 PO; -RSP3 PO
[2017-01-16 16:48] VITALS: TEMP 36.6; Ht 170.2 cm; Wt 93.3 kg
[2017-01-16] MEDS ORDERED: SODIUM CHLORIDE 0.9% 250ML 250 ML IV STA (17:45)
[2017-01-16] MEDS ORDERED: SODIUM CHLORIDE 0.9% 1000ML 1,000 ML IV STA (17:45)
[2017-01-16] MEDS ORDERED: ALPRAZOLAM 0.5 MG TAB PO STA (17:49)
[2017-01-16] MEDS ORDERED: DSY/150 PO (18:12)
[2017-01-16] MEDS ORDERED: CARB25TA12 PO (18:12)
[2017-01-16] MEDS ORDERED: NRV/10 PO (18:12)
[2017-01-16] MEDS ORDERED: LOSA100T65 PO (18:12)
[2017-01-16] MEDS ORDERED: GABA1CAP4 PO (18:12)
[2017-01-16 18:25] LABS: BASO ABS # 0.05 K/uL (0-0.2); COMPLETE YES; EOS % 2.3 %; IG% 0.2 %; LYMPH % 25.6 %; LYMPH ABS # 1.33 K/uL (1.2-3.4); MEAN CELL VOLUME 84.3 fL (80-100); MEAN CORPUSCULAR HEMOGLOBIN 29.3 pg (25-34); MEAN CORPUSCULAR HGB CONC 34.8 g/dl (32-36); MONO % 8.9 %; PLATELET COUNT 182 K/uL (130-400); RED BLOOD COUNT 5.22 M/uL (4.7-6.1); WHITE BLOOD COUNT 5.19 K/uL (4.8-10.8)
--- NOTE | 2017-01-16 18:34 | EMERGENCY ROOM VISIT NOTE ---
History Report prepared by Faraz: Evelyn Jacobs Under the Supervision of: Dr. Cora Segovia M.D. First contact with patient: 17:27 Chief Complaint: OTHER COMPLAINT Stated Complaint: CAN'T SWALLOW OR DRINK, COUGH, PHLEM Nursing Triage Summary: "I can't swallow. It's been going on for awhile, but got worse yesterday. I had a video swallow test last week and it was inconclusive. I just start coughing as soon as I swallow food/water." History of Present Illness The patient is a 71 year old male who presents to the Emergency Room with complaints of persistent inability to swallow starting yesterday. The patient notes that he is unable to drink water or eat food. He also notes that he got a video swallow test 6 days ago. The patient also notes that he has lost weight. He denies any urinary symptoms or any bowel movements today. The patient denies taking any Ativan today because it has caused him grogginess in the past, his psychiatrist is taking him off of benzos. Pt's son states that the pt has significant anxiety. He drank an entire strawberry milkshake between his psychiatry appt and his arrival to the ED. He apparently has been eating breakfast prior to his awakening. Onset: yesterday Quality: other (inability to swallow) Timing: other (persistent) Associated Symptoms: No urinary symptoms Note: Pt notes weight loss, and inability to drink water or eat food. The pt denies having a bowel movement today. Review of Systems See HPI for pertinent positives & negatives. A total of 10 systems reviewed and were otherwise negative. Past Medical & Surgical Medical Problems: (1) Back pain (2) Bipolar II disorder (3) Diabetes (4) Generalized anxiety disorder (5) HTN (hypertension) (6) Hyperlipidemia (7) Suicide attempt by acetaminophen overdose Family History Patient reports no known family medical history. No pertinent family history stated. Social History Smoking Status: Former Smoker Alcohol Use: none Drug Use: none Marital Status: Housing Status: assisted living Occupation Status: retired Current/Historical Medications Scheduled Amlodipine Besylate (Amlodipine Besylate), 1 TAB PO DAILY Atorvastatin (Lipitor), 40 MG PO QPM Buspirone HCl (Buspirone HCl), 15 MG PO TID Carbidopa/Levodopa (Sinemet 25MG/100MG), 1 TAB PO TID Docusate Sodium (Docusate Sodium), 100 MG PO BID Gabapentin (Gabapentin), 600 MG PO TID Lamotrigine (Lamictal), 200 MG PO BID Levothyroxine Sodium (Synthroid), 50 MCG PO QAM Lidocaine (Lidocaine), 1 PATCH TD QAM Losartan Potassium (Cozaar), 1 TAB PO DAILY Melatonin (Melatonin), 3 MG PO HS Metoprolol Succinate (Toprolxl (Toprol-Xl), 200 MG PO DAILY Multivitamin (Multivitamin), 1 TAB PO QAM Risperidone (Risperdal), 2 MG PO QAM Risperidone (Risperdal), 4 MG PO QPM Ropinirole (Requip), 2 MG PO HS Trazodone HCl (Trazodone HCl), 1 TAB PO DAILY Scheduled PRN Acetaminophen Tab (Tylenol), 650 MG PO Q4H PRN for Pain or Fever Lorazepam (Lorazepam), 0.5 MG PO Q8 PRN for Anxiety Oxycodone/Acetaminophen 5MG/325MG (Percocet 5MG/325MG), 1 TAB PO Q12 PRN for pain Polyethylene (Miralax), 17 GM PO DAILY PRN for Constipation Allergies Coded Allergies: Pregabalin (Unverified Allergy, Severe, SUICIDAL, 01/16/17) Celecoxib (Verified Allergy, Unknown, RASH, 01/16/17) Ibuprofen (Verified Allergy, Unknown, RASH, 01/16/17) Quetiapine (Unverified Allergy, Unknown, UNKNOWN, 01/16/17) Physical Exam Vital Signs Date Time Temp Pulse Resp B/P (MAP) Pulse Ox O2 Delivery O2 Flow Rate FiO2 01/16/17 20:59 80 16 128/94 91 01/16/17 20:17 79 16 152/88 94 Room Air 01/16/17 18:43 65 16 128/78 93 Room Air 01/16/17 16:48 36.6 72 18 122/79 92 Room Air 01/16/17 16:48 91 Room Air Physical Exam Vital signs reviewed. General: Well-appearing elderly male, ill appearing. Exhibits some repetitive movements (repetitive crossing of the feet). HEENT: No scleral icterus, PERRLA, neck supple. Atraumatic. Cardiovascular: Regular rate and rhythm, no extra sounds. Pulmonary: Clear to auscultation bilaterally, normal work of breathing. Abdomen: Soft, nontender, nondistended, positive bowel sounds. Musculoskeletal: Atraumatic, no peripheral edema. Neurologic: Patient awake alert and oriented x 3, full strength in all 4 extremities. Cranial nerves 2 through 12 grossly intact. Skin: Warm, dry, no rash Medical Decision & Procedures Laboratory Results 01/16/17 18:14 Red Blood Count 5.22, Mean Corpuscular Volume 84.3, Mean Corpuscular Hemoglobin 29.3, Mean Corpuscular Hemoglobin Concent 34.8, Mean Platelet Volume 8.0, Neutrophils (%) (Auto) 62.0, Lymphocytes (%) (Auto) 25.6, Monocytes (%) (Auto) 8.9, Eosinophils (%) (Auto) 2.3, Basophils (%) (Auto) 1.0, Neutrophils # (Auto) 3.22, Lymphocytes # (Auto) 1.33, Monocytes # (Auto) 0.46, Eosinophils # (Auto) 0.12, Basophils # (Auto) 0.05 01/16/17 18:14 Test 01/16/17 18:14 White Blood Count 5.19 K/uL (4.8-10.8) Red Blood Count 5.22 M/uL (4.7-6.1) Hemoglobin 15.3 g/dL (14.0-18.0) Hematocrit 44.0 % (42-52) Mean Corpuscular Volume 84.3 fL (80-100) Mean Corpuscular Hemoglobin 29.3 pg (25-34) Mean Corpuscular Hemoglobin Concent 34.8 g/dl (32-36) Platelet Count 182 K/uL (130-400) Mean Platelet Volume 8.0 fL (7.4-10.4) Neutrophils (%) (Auto) 62.0 % Lymphocytes (%) (Auto) 25.6 % Monocytes (%) (Auto) 8.9 % Eosinophils (%) (Auto) 2.3 % Basophils (%) (Auto) 1.0 % Neutrophils # (Auto) 3.22 K/uL (1.4-6.5) Lymphocytes # (Auto) 1.33 K/uL (1.2-3.4) Monocytes # (Auto) 0.46 K/uL (0.11-0.59) Eosinophils # (Auto) 0.12 K/uL (0-0.5) Basophils # (Auto) 0.05 K/uL (0-0.2) RDW Standard Deviation 38.8 fL (36.4-46.3) RDW Coefficient of Variation 12.8 % (11.5-14.5) Immature Granulocyte % (Auto) 0.2 % Immature Granulocyte # (Auto) 0.01 K/uL (0.00-0.02) Anion Gap 8.0 mmol/L (3-11) Est Creatinine Clear Calc Drug Dose 52.7 ml/min Estimated GFR () 58.2 Estimated GFR (Non- 50.2 BUN/Creatinine Ratio 11.2 (10-20) Calcium Level 9.1 mg/dl (8.5-10.1) Magnesium Level 2.2 mg/dl (1.8-2.4) Total Bilirubin 0.6 mg/dl (0.2-1) Direct Bilirubin 0.2 mg/dl (0-0.2) Aspartate Amino Transf (AST/SGOT) 10 U/L (15-37) Alanine Aminotransferase (ALT/SGPT) 26 U/L (12-78) Alkaline Phosphatase 106 U/L (45-117) Total Protein 6.9 gm/dl (6.4-8.2) Albumin 3.7 gm/dl (3.4-5.0) Laboratory results per my review. Medications Administered Medications (Trade) Dose Ordered Sig/[place] Route Start Time Stop Time Status Last Admin Dose Admin Sodium Chloride 250 ml @ 999 mls/hr Q16M STAT IV 01/16/17 17:45 01/16/17 18:00 DC 01/16/17 18:36 999 MLS/HR Sodium Chloride 1,000 ml @ 125 mls/hr Q8H STAT IV 01/16/17 17:45 01/16/17 22:13 DC 01/16/17 18:36 125 MLS/HR Alprazolam (Xanax Tab) 0.5 mg NOW STAT PO 01/16/17 17:49 01/16/17 17:51 DC 01/16/17 18:36 0.5 MG ECG Indication: other (Inability to swallow) Rate (beats per minute): 65 Rhythm: normal sinus Findings: other (nonspecific T-wave rhythm abnormality ) ED Course 1741: Past medical records reviewed. The patient was evaluated in room B10. A complete history and physical examination was performed. 174: Sodium Chloride 1000 ml @ 125 mls/hr IV, Sodium Chloride 250 ml @ 999 mls/ hr IV 174: Xanax Tab 0.5 mg PO. 1939: Upon reevaluation, the patient appeared to have improvement of his symptoms. I discussed findings with the patient. He verbalized agreement of the treatment plan. The patient was discharged home. Medical Decision Differential diagnosis: Etiologies such as mood disorder, infection, hypoglycemia, electrolyte abnormalities, cardiac sources, intracerebral event, toxicologic, neurologic, as well as others were entertained. This pt was evaluated and appeared to be in no distress. IV access was obtained and lab work was drawn. Pt was hydrated with NSS and was given xanax 0.5 mg po. Pt was referred to psych case management for evaluation. It was determined that pt has several medication changes with Dr Alvares today. He was advised to make the changes as prescribed, follow up with PCP regarding perceived dysphagia, and return to the ED for worsening of symptoms or any medical concerns. Medication Reconcilliation Current Medication List: was personally reviewed by me Blood Pressure Screening Patient's blood pressure: Normal blood pressure Blood pressure disposition: Did not require urgent referral Impression Primary Impression: Dysphagia Additional Impression: Generalized anxiety disorder Scribe Attestation The scribe's documentation has been prepared under my direction and personally reviewed by me in its entirety. I confirm that the note above accurately reflects all work, treatment, procedures, and medical decision making performed by me. Departure Information Dispostion Home / Self-Care Referrals Rich Narvaez M.D. (PCP) Forms HOME CARE DOCUMENTATION FORM, IMPORTANT VISIT INFORMATION, WORK / SCHOOL INSTRUCTIONS Patient Instructions My [facility] Additional Instructions Diagnosis: Anxiety, swallowing difficulities Continue medications as prescribed, including medication changes directed by Dr Alvares today. Follow up with your doctor this week for reevaluation. Return to the ED for worsening of symptoms or any medical concerns. Problem Qualifiers
[2017-01-16 18:57] LABS: BUN/CREATININE RATIO 11.2 (10-20); CALCIUM 9.1 mg/dl (8.5-10.1); CREATININE 1.4 mg/dl (0.60-1.40); MAGNESIUM 2.2 mg/dl (1.8-2.4); POTASSIUM 3.9 mmol/L (3.5-5.1)
[2017-01-16 20:59] VITALS: BP 128/94; PULSE 80; O2SAT 91
== END 2017-01-16 20:59 | disposition home or self-care (01) ==
LOC: C.EDB 16:40
DX: R13.10 Dysphagia, unspecified (principal); E11.9 Type 2 diabetes mellitus without complications; I10 Essential (primary) hypertension; E78.5 Hyperlipidemia, unspecified; F31.81 Bipolar II disorder; Z79.899 Other long term (current) drug therapy; Z87.891 Personal history of nicotine dependence

== ENCOUNTER 2017-01-30 16:43 | Inpatient (IN) | payer MEDICARE, OTHER ==
[~2017-01-30] VITALS: Ht 170.2 cm; Wt 86.5 kg
[~2017-01-30 16:43] MED LIST changes: +CARB25TA12 PO; +DSY/150 PO; -DSY50 PO; -FLM4 PO; -GABA-113 PO; +GABA1CAP4 PO; +LOSA100T65 PO; -NRN600 PO; +NRV/10 PO; -TRAZ100T29 PO
[2017-01-30 17:17] VITALS: BP 160/98; PULSE 90; TEMP 36.8; O2SAT 90
[2017-01-30] MEDS ORDERED: POLYETHYLENE (MIRALAX) 17 GM PACK PO PRN (18:30)
[2017-01-30] MEDS ORDERED: ACETAMINOPHEN 325 MG TAB PO PRN (18:30)
[2017-01-30 18:44] LABS: BASO % 0.2 %; BASO ABS # 0.02 K/uL (0-0.2); EOS % 0.4 %; IG% 0.2 %; LYMPH % 17.8 %; LYMPH ABS # 1.46 K/uL (1.2-3.4); MEAN CELL VOLUME 84.2 fL (80-100); MEAN CORPUSCULAR HEMOGLOBIN 30.2 pg (25-34); MEAN PLATELET VOLUME 8.4 fL (7.4-10.4); MONO % 10.2 %; NEUT % 71.2 %; PLATELET COUNT 206 K/uL (130-400); WHITE BLOOD COUNT 8.22 K/uL (4.8-10.8)
[2017-01-30 18:47] LABS: COMPLETE YES; MEAN CORPUSCULAR HGB CONC 35.8 g/dl (32-36)
[2017-01-30 19:09] LABS: ALB/GLOB RATIO 0.9 (0.9-2); ALKALINE PHOSPHATASE 108 U/L (45-117); ALT/SGPT 24 U/L (12-78); AST/SGOT 15 U/L (15-37); BLOOD UREA NITROGEN 17 mg/dl (7-18); BUN/CREATININE RATIO 16.6 (10-20); CALCIUM 9.4 mg/dl (8.5-10.1); CARBON DIOXIDE 26 mmol/L (21-32); CHLORIDE 108 mmol/L (98-107); GLUCOSE 97 mg/dl (70-99); MAGNESIUM 2.2 mg/dl (1.8-2.4); PREALBUMIN 19.1 mg/dl (20-40); SODIUM 141 mmol/L (136-145)
--- NOTE | 2017-01-30 19:18 | DIAGNOSTIC IMAGING REPORT ---
CHEST ONE VIEW PORTABLE CLINICAL HISTORY: productive cough COMPARISON STUDY: 11/07/2015 FINDINGS: The endotracheal tube and nasogastric tubes have been removed. The heart is within normal limits in size given AP technique. There is no failure. There is no focal pulmonary consolidation. There are no pleural effusions.[ IMPRESSION: No active disease in the chest. Electronically signed by: Homer Alonso M.D. 01/30/2017 7:16 PM Dictated Date/Time: 01/30/2017 7:16 PM
[2017-01-30] MEDS: NSS + 20MEQ KCL 1000ML 1,000 ML IV SCH (19:32)
[2017-01-30 20:02] VITALS: BP 160/98; PULSE 90; TEMP 36.8; O2SAT 90; Ht 170.2 cm; Wt 86.5 kg
[2017-01-30] MEDS ORDERED: MoRPHine SULFATE 2 MG/ML CARP IV PRN (20:45)
[2017-01-30] MEDS ORDERED: NURSING VERBAL MED ORDER ONE (20:45)
--- NOTE | 2017-01-30 20:50 | History and Physical ---
History & Physical Date & Time of Service: Jan 30, 2017 at 20:37 Chief Complaint: Dusphasia,Weight Loss Primary Care Physician: Rich Narvaez M.D. History of Present Illness Source: patient, clinic records, hospital records The patient is a 71-year-old male referred for direct admission from outpatient office due to progressive dysphagia and 21 pound weight loss over the past month. The patient has been too clear for the emergency department 3 times and not [place] once during this interval time with progressive symptoms. He has a known history of dementia, and therefore his history of present illness somewhat limited. The patient reports that he feels very anxious. Past Medical/Surgical History Medical Problems: (1) Diabetes Status: Chronic (2) HTN (hypertension) Status: Chronic (3) Hyperlipidemia Status: Chronic Family History Patient reports no known family medical history. Social History Smoking Status: Former Smoker Smokeless Tobacco Use: No Alcohol Use: none Drug Use: none Marital Status: Housing status: lives with significant other Occupational Status: retired Immunizations History of Influenza Vaccine: Unknown History of Tetanus Vaccine?: Unknown History of Pneumococcal: Unknown History of Hepatitis B Vaccine: Unknown Multi-Drug Resistant Organisms History of MDRO: No Allergies Coded Allergies: Pregabalin (Unverified Allergy, Severe, SUICIDAL, 01/16/17) Celecoxib (Verified Allergy, Unknown, RASH, 01/16/17) Ibuprofen (Verified Allergy, Unknown, RASH, 01/16/17) Quetiapine (Unverified Allergy, Unknown, UNKNOWN, 01/16/17) Home Medications Scheduled Amlodipine Besylate (Amlodipine Besylate), 1 TAB PO DAILY Atorvastatin (Lipitor), 40 MG PO QPM Buspirone HCl (Buspirone HCl), 15 MG PO TID Carbidopa/Levodopa (Sinemet 25MG/100MG), 1 TAB PO TID Docusate Sodium (Docusate Sodium), 100 MG PO BID Gabapentin (Gabapentin), 600 MG PO TID Lamotrigine (Lamictal), 200 MG PO BID Levothyroxine Sodium (Synthroid), 50 MCG PO QAM Lidocaine (Lidocaine), 1 PATCH TD QAM Losartan Potassium (Cozaar), 1 TAB PO DAILY Melatonin (Melatonin), 3 MG PO HS Metoprolol Succinate (Toprolxl (Toprol-Xl), 200 MG PO DAILY Multivitamin (Multivitamin), 1 TAB PO QAM Risperidone (Risperdal), 2 MG PO QAM Risperidone (Risperdal), 4 MG PO QPM Ropinirole (Requip), 2 MG PO HS Trazodone HCl (Trazodone HCl), 1 TAB PO DAILY Scheduled PRN Acetaminophen Tab (Tylenol), 650 MG PO Q4H PRN for Pain or Fever Lorazepam (Lorazepam), 0.5 MG PO Q8 PRN for Anxiety Oxycodone/Acetaminophen 5MG/325MG (Percocet 5MG/325MG), 1 TAB PO Q12 PRN for pain Polyethylene (Miralax), 17 GM PO DAILY PRN for Constipation Review of Systems The patient denies chest pain, palpitations, shortness of breath, cough, lower extremity swelling, vision change, hearing change, fevers, chills, sweats, nausea, vomiting, diarrhea or constipation, abdominal pain, pelvic pain, blood in urine or stool, dysuria, urinary frequency or urgency, lightheadedness, dizziness, headache, rash, abnormal bruising or bleeding, imbalance, focal weakness, numbness or tingling in arms or legs, generalized arthralgias or myalgias, back or neck pain, night sweats, or allergy symptoms. The review of systems is otherwise negative other than for that already noted above, and at least 10 systems have been reviewed. Physical Exam Vital Signs Date Time Temp Pulse Resp B/P (MAP) Pulse Ox O2 Delivery O2 Flow Rate FiO2 01/30/17 20:02 36.8 90 18 160/98 90 Room Air 01/30/17 17:17 36.8 90 18 160/98 (118) 90 The patient is awake, alert and oriented 3, normocephalic and atraumatic, lying in bed and in no acute distress. HEENT--PERRL, EOMI, mucous membranes and oropharynx dry. Neck--supple, no JVD or bruits, thyroid normal, trachea midline, no adenopathy. Heart--normal S1 and S2, no extra beats, no murmurs, rubs or gallops. Lungs--clear bilaterally but decreased breath sounds throughout, no respiratory distress, no accessory muscle use. Abdomen--normal bowel sounds and soft, nontender and nondistended, no hernias or masses, no organomegaly. Extremities--no cyanosis, clubbing or edema. There are good distal pulses b/l. Dermatologic--normal skin turgor, normal color, warm and dry, no abnormal lymph nodes, no rash. Neurologic--cranial nerves II through XII grossly intact, motor and sensory examination normal. Rheumatologic--normal range of motion. Psychiatric--mildly anxious. Diagnostics Laboratory Results Results Past 24 Hours Test 01/30/17 18:27 Range/Units White Blood Count 8.22 4.8-10.8 K/uL Red Blood Count 5.70 4.7-6.1 M/uL Hemoglobin 17.2 14.0-18.0 g/dL Hematocrit 48.0 42-52 % Mean Corpuscular Volume 84.2 80-100 fL Mean Corpuscular Hemoglobin 30.2 25-34 pg Mean Corpuscular Hemoglobin Concent 35.8 32-36 g/dl Platelet Count 206 130-400 K/uL Mean Platelet Volume 8.4 7.4-10.4 fL Neutrophils (%) (Auto) 71.2 % Lymphocytes (%) (Auto) 17.8 % Monocytes (%) (Auto) 10.2 % Eosinophils (%) (Auto) 0.4 % Basophils (%) (Auto) 0.2 % Neutrophils # (Auto) 5.85 1.4-6.5 K/uL Lymphocytes # (Auto) 1.46 1.2-3.4 K/uL Monocytes # (Auto) 0.84 0.11-0.59 K/uL Eosinophils # (Auto) 0.03 0-0.5 K/uL Basophils # (Auto) 0.02 0-0.2 K/uL RDW Standard Deviation 38.2 36.4-46.3 fL RDW Coefficient of Variation 12.7 11.5-14.5 % Immature Granulocyte % (Auto) 0.2 % Immature Granulocyte # (Auto) 0.02 0.00-0.02 K/uL Sodium Level 141 136-145 mmol/L Potassium Level 4.0 3.5-5.1 mmol/L Chloride Level 108 98-107 mmol/L Carbon Dioxide Level 26 21-32 mmol/L Anion Gap 7.0 3-11 mmol/L Blood Urea Nitrogen 17 7-18 mg/dl Creatinine 1.00 0.60-1.40 mg/dl Estimated GFR () 87.4 Estimated GFR (Non- 75.4 BUN/Creatinine Ratio 16.6 10-20 Random Glucose 97 70-99 mg/dl Calcium Level 9.4 8.5-10.1 mg/dl Magnesium Level 2.2 1.8-2.4 mg/dl Total Bilirubin 0.9 0.2-1 mg/dl Aspartate Amino Transf (AST/SGOT) 15 15-37 U/L Alanine Aminotransferase (ALT/SGPT) 24 12-78 U/L Alkaline Phosphatase 108 45-117 U/L Total Protein 7.4 6.4-8.2 gm/dl Albumin 3.6 3.4-5.0 gm/dl Globulin 3.8 2.5-4.0 gm/dl Albumin/Globulin Ratio 0.9 0.9-2 Prealbumin 19.1 20-40 mg/dl Microbiology Results 01/30/17 Gram Stain, Ordered Pending 01/30/17 Sputum Culture, Ordered Pending Diagnostic Radiology Patient Name: MARGARET PADILLA Unit Number: [id number] Dictated: 01/30/171915 Transcribed: 01/30/171915 ARG Printed Date/Time: [~ rep prt dt]/[~ rep prt tm] [~ rep ct labl] - [~ rep ct ivnm] [facility] [place] [address] Dictated: 01/30/171915 Transcribed: 01/30/171915 ARG Printed Date/Time: [~ rep prt dt]/[~ rep prt tm] [~ rep ct labl] - [~ rep ct ivnm] CHEST ONE VIEW PORTABLE CLINICAL HISTORY: productive cough COMPARISON STUDY: 11/07/2015 FINDINGS: The endotracheal tube and nasogastric tubes have been removed. The heart is within normal limits in size given AP technique. There is no failure. There is no focal pulmonary consolidation. There are no pleural effusions.[ IMPRESSION: No active disease in the chest. Electronically signed by: Homer Alonso M.D. 01/30/2017 7:16 PM Dictated Date/Time: 01/30/2017 7:16 PM The status of this report is Signed. Draft = Not yet reviewed or approved by Radiologist. Signed = Reviewed and approved by Radiologist. <AttendingPhy>Dickson Victoria M.D.</AttendingPhy> <FamilyPhy>Rich Narvaez M.D.</FamilyPhy> <PrimaryPhy>Rich Narvaez M.D.</ PrimaryPhy> <UnitNumber>[id number]</UnitNumber> <VisitNumber>[id number]</ VisitNumber> <PatientName>MARGARET PADILLA</PatientName> <DateOfBirth>1945</ DateOfBirth> <Location>[facility]</Location> <ServiceDate></ServiceDate> <MNE>ESINDI </MNE> <OrderingPhy>Dickson Victoria M.D.</OrderingPhy> <OrderingPhyMNE>f rep ord dr garcia</OrderingPhyMNE> <DictatingPhyMNE>f rep dict dr garcia</ DictatingPhyMNE> <CCListMNE>f rep ct radha</CCListMNE> <AdmittingPhyMNE>f pt admit dr garcia</AdmittingPhyMNE> <AttendingPhyMNE>f pt attend dr garcia</ AttendingPhyMNE> <ConsultingPhyMNE>f pt consult dr garcia</ConsultingPhyMNE> <FamilyPhyMNE>f pt fam dr garcia</FamilyPhyMNE> <OtherPhyMNE>f pt other dr garcia</OtherPhyMNE> < PrimaryPhyMNE>f pt prim care dr garcia</PrimaryPhyMNE> <ReferringPhyMNE>f pt referring dr garcia</ReferringPhyMNE> Impression Assessment and Plan Dysphagia/21 pound weight loss in the past month-- Admitted to the medical floor with nothing by mouth status except medications. Consult speech therapy to evaluate and treat. Consult gastroenterology for possible EGD. Suspect he has dysmotility secondary to Parkinson's. Normal saline with KCl 20 mEq 100 ML's per hour. Hypertension-- Continue amlodipine,losartan and metoprolol succinate Parkinson's-- Continue carbidopa/levodopa Hyperlipidemia-- Continue atorvastatin. Hypothyroidism-- Continue levothyroxine Restless leg syndrome-- Continue ropinirole Bipolar disorder-- Continue risperidone, buspirone, trazodone and lamotrigine. Continue lorazepam and melatonin. GPN-- Continue gabapentin Level of Care Med/Surg Advanced Directives Existing Advance Directive: No Existing Living Will: No Existing Power of Od Grinder Operator: No Resuscitation Status FULL RESUSCITATION VTE Prophylaxis Given or contraindicated: SCD's
[2017-01-30] MEDS: DOCUSATE SODIUM 100 MG CAP PO SCH (21:00)
[2017-01-30] MEDS: ATORVASTATIN 40 MG TAB PO SCH (21:00)
[2017-01-30] MEDS: GABAPENTIN 600 MG TAB PO SCH (21:00)
[2017-01-30] MEDS: TRAZODONE HCL 100 MG TAB PO SCH (21:00)
[2017-01-30] MEDS: BusPIRone 15 MG TAB PO SCH (21:00)
[2017-01-30] MEDS: ROPINIROLE HCL 1 MG TAB PO SCH (21:00)
[2017-01-30] MEDS: RISPERIDONE 2 MG TAB PO SCH (21:00)
[2017-01-30] MEDS ORDERED: NON-FORMULARY MEDICATION (Melatonin 3 MG) PO SCH (21:00)
[2017-01-30] MEDS: CARBIDOPA/LEVODOPA 25/100MG TAB PO SCH (21:00)
[2017-01-30] MEDS: LORAZEPAM 0.5 MG TAB PO PRN (23:55)
[2017-01-31 00:27] VITALS: BP 156/87; PULSE 72; TEMP 36.8; O2SAT 93
[2017-01-31] MEDS: NSS + 20MEQ KCL 1000ML 1,000 ML IV SCH ×2 (05:06→16:50)
[2017-01-31] MEDS: LEVOTHYROXINE 50 MCG TAB PO SCH (05:52)
[2017-01-31 08:09] VITALS: BP 130/79; PULSE 67; TEMP 36.7; O2SAT 95
[2017-01-31] MEDS: GABAPENTIN 600 MG TAB PO SCH ×3 (09:00→20:45)
[2017-01-31] MEDS: DOCUSATE SODIUM 100 MG CAP PO SCH ×2 (09:00→21:00)
[2017-01-31] MEDS: AMLODIPINE BESYLATE 5 MG TAB PO SCH (09:00)
[2017-01-31] MEDS: METOPROLOL SUCC 50MG EXT REL TAB PO SCH (09:00)
[2017-01-31] MEDS: CARBIDOPA/LEVODOPA 25/100MG TAB PO SCH ×3 (09:00→20:54)
[2017-01-31] MEDS: RISPERIDONE 2 MG TAB PO SCH ×2 (09:00→21:00)
[2017-01-31] MEDS: BusPIRone 15 MG TAB PO SCH ×3 (09:00→20:46)
[2017-01-31] MEDS: LOSARTAN POTASSIUM 50 MG TAB PO SCH (09:00)
[2017-01-31] MEDS: MULTIVITAMIN TAB PO SCH (09:00)
[2017-01-31] MEDS: LORAZEPAM 0.5 MG TAB PO PRN (09:02)
[2017-01-31] MEDS: LIDODERM (LIDOCAINE) PATCH 5% TD SCH (09:32)
--- NOTE | 2017-01-31 09:41 | Gastrointestinal Consultation ---
Gastrointestinal Consultation Date of Consultation: Jan 31, 2017 Attending Physician: Dr. Victoria Consulting Physician: Dr. Mosley/FELICIA Guardado Reason for Consultation: Dysphagia History of Present Illness Patient is a 71 year old male with a history of dysphagia that has been ongoing for several months but has been progressively worsening over the past two weeks. He states he is unable to tolerate solids or liquids. While he attempts to swallow, he begins to have increased mucous production which he vomits. No odynophagia or pyrosis. He further denies any hematemesis, melena or hematochezia. Due to swallowing difficulty, he has lost approximately 48 pounds. He denies any nausea, abdominal pain, diarrhea, constipation or other GI complaints. Risk factors: former tobacco use (quit ~ 30 years ago) but no alcohol. Family history is negative for GI malignancy. Upon arrival, the patient was noted to be hemodynamically stable with a H&H of 17.2 and 48.0. BUN and creatinine were normal. Patient has been made NPO. Past Medical/Surgical History Medical Problems: (1) Acute head injury Status: Acute (2) Ambulatory dysfunction Status: Acute (3) Dysphagia Status: Acute (4) Fall Status: Acute (5) Hypoxia Status: Acute (6) Low back pain Status: Acute (7) Mood disorder Status: Acute (8) Mood disorder Status: Acute (9) Narcotic-induced respiratory depression Status: Acute (10) Opiate overdose Status: Acute (11) Overdose of sleeping tabs Status: Acute (12) Suicidal ideation Status: Acute (13) Suicide attempt Status: Acute Past Medical History: 1. Dementia 2. Colon polyps Past Surgical History: Complete colonoscopy with polypectomy in June of 2015 Family History Patient reports no known family medical history. As per HPI Social History Smoking Status: Former Smoker Alcohol Use: none Drug Use: none Marital Status: Housing Status: assisted living Occupation Status: retired Allergies Coded Allergies: Pregabalin (Unverified Allergy, Severe, SUICIDAL, 01/16/17) Celecoxib (Verified Allergy, Unknown, RASH, 01/16/17) Ibuprofen (Verified Allergy, Unknown, RASH, 01/16/17) Quetiapine (Unverified Allergy, Unknown, UNKNOWN, 01/16/17) Current Medications Home Meds and Scripts Medications Dose Route/Sig Max Daily Dose Days Date Category Dose Instructions Trazodone HCl 150 Mg Tab 1 Tab PO DAILY 01/16/17 Reported Gabapentin 300 Mg Cap 600 Mg PO TID 01/16/17 Reported Sinemet 25MG/100MG (Carbidopa/Levodopa) Tab 1 Tab PO TID 01/16/17 Reported Amlodipine Besylate 10 Mg Tab 1 Tab PO DAILY 01/16/17 Reported Cozaar (Losartan Potassium) 100 Mg Tab 1 Tab PO DAILY 01/16/17 Reported Miralax (Polyethylene) 17 Gm Pow 17 Gm PO DAILY PRN 30 10/13/16 Rx Docusate Sodium 100 Mg Cap 100 Mg PO BID 30 10/13/16 Rx Lidocaine 1 Patch Tdsy 1 Patch TD QAM 14 10/13/16 Rx Tylenol (Acetaminophen) 325 Mg Tab 650 Mg PO Q4H PRN 10/13/16 Rx Percocet 5MG/325MG (Oxycodone/Acetaminophen) Tab 1 Tab PO Q12 PRN 10/13/16 Rx PAIN Lorazepam 0.5 Mg Tab 0.5 Mg PO Q8 PRN 10/13/16 Rx Risperdal (Risperidone) 2 Mg Tab 4 Mg PO QPM 10/03/16 Reported Risperdal (Risperidone) 2 Mg Tab 2 Mg PO QAM 10/03/16 Reported Buspirone HCl 15 Mg Tab 15 Mg PO TID 10/03/16 Reported Requip (Ropinirole HCl) 2 Mg Tab 2 Mg PO HS 10/03/16 Reported Melatonin 3 Mg Cap 3 Mg PO HS 10/03/16 Reported Toprol-Xl (Metoprolol Succinate) 200 Mg Tabcr 200 Mg PO DAILY 10/03/16 Reported Lamictal (Lamotrigine) 200 Mg Tab 200 Mg PO BID 10/03/16 Reported Synthroid (Levothyroxine Sodium) 50 Mcg Tab 50 Mcg PO QAM 02/16/15 Reported Multivitamin (Multivitamins) Tab 1 Tab PO QAM 06/02/09 Reported Lipitor (Atorvastatin Calcium) 40 Mg Tab 40 Mg PO QPM 06/02/09 Reported Review of Systems Constitutional: No fever, No chills Eyes: No problem reported ENT: + see HPI Respiratory: No problem reported Abdomen: + see HPI Musculoskeletal: No problem reported Male : No problem reported Neuro: No problem reported Psych: No problem reported Physical Exam Date Time Temp Pulse Resp B/P (MAP) Pulse Ox O2 Delivery O2 Flow Rate FiO2 01/31/17 08:09 36.7 67 16 130/79 (96) 95 Room Air 01/31/17 00:27 36.8 72 18 156/87 (110) 93 Room Air 01/30/17 23:45 Room Air 01/30/17 20:02 36.8 90 18 160/98 90 Room Air 01/30/17 17:17 36.8 90 18 160/98 (118) 90 General Appearance: no apparent distress Eyes: EOMI ENT: hearing grossly normal Neck: supple Respiratory/Chest: normal breath sounds, no respiratory distress, + rhonchi Cardiovascular: regular rate, rhythm, no gallop, no murmur Abdomen: normal bowel sounds, non tender, soft Extremities: normal inspection Neurologic/Psych: alert, normal mood/affect, oriented x 3 Skin: warm/dry Laboratory Results Last 24 Hours Test 01/30/17 18:27 White Blood Count 8.22 K/uL Red Blood Count 5.70 M/uL Hemoglobin 17.2 g/dL Hematocrit 48.0 % Mean Corpuscular Volume 84.2 fL Mean Corpuscular Hemoglobin 30.2 pg Mean Corpuscular Hemoglobin Concent 35.8 g/dl Platelet Count 206 K/uL Mean Platelet Volume 8.4 fL Neutrophils (%) (Auto) 71.2 % Lymphocytes (%) (Auto) 17.8 % Monocytes (%) (Auto) 10.2 % Eosinophils (%) (Auto) 0.4 % Basophils (%) (Auto) 0.2 % Neutrophils # (Auto) 5.85 K/uL Lymphocytes # (Auto) 1.46 K/uL Monocytes # (Auto) 0.84 K/uL Eosinophils # (Auto) 0.03 K/uL Basophils # (Auto) 0.02 K/uL RDW Standard Deviation 38.2 fL RDW Coefficient of Variation 12.7 % Immature Granulocyte % (Auto) 0.2 % Immature Granulocyte # (Auto) 0.02 K/uL Sodium Level 141 mmol/L Potassium Level 4.0 mmol/L Chloride Level 108 mmol/L Carbon Dioxide Level 26 mmol/L Anion Gap 7.0 mmol/L Blood Urea Nitrogen 17 mg/dl Creatinine 1.00 mg/dl Estimated GFR () 87.4 Estimated GFR (Non- 75.4 BUN/Creatinine Ratio 16.6 Random Glucose 97 mg/dl Calcium Level 9.4 mg/dl Magnesium Level 2.2 mg/dl Total Bilirubin 0.9 mg/dl Aspartate Amino Transf (AST/SGOT) 15 U/L Alanine Aminotransferase (ALT/SGPT) 24 U/L Alkaline Phosphatase 108 U/L Total Protein 7.4 gm/dl Albumin 3.6 gm/dl Globulin 3.8 gm/dl Albumin/Globulin Ratio 0.9 Prealbumin 19.1 mg/dl Impression Patient is a 71 year old male admitted with dysphagia to both solids and liquids as well as ~50 pound unintentional weight loss. Plan 1. Keep NPO for now. 2. EGD today for further evaluation of symptoms. 3. Additional recommendations pending results of testing, but symptoms are worrisome for possible esophageal pathology. Thank you for allowing us to participate in the care of this pleasant patient. If you have any questions or concerns, please do not hesitate to contact us. Agree with FELICIA Guardado as above Abd: Soft, NT, ND, +BS EGD now for further evaluation of Dysphagia and weight loss
[2017-01-31] MEDS ORDERED: KETAMINE HCL INJ 50 MG/ML 10 ML VIAL ONE (12:37)
[2017-01-31] MEDS ORDERED: LIDOCAINE HCL 2% 2 ML VIAL (20MG/ML) ONE (12:49)
[2017-01-31] MEDS ORDERED: PROPOFOL IV EMULSION 10 MG/ML 20 ML VIAL IV ONE (12:49)
--- NOTE | 2017-01-31 12:55 | GI REPORT ---
Procedure Date: 01/31/2017 12:22 PM Procedure: Upper GI endoscopy Indications: Dysphagia Medicines: Monitored Anesthesia Care Complications: No immediate complications. Estimated Blood Loss: Estimated blood loss: none. Procedure: Pre-Anesthesia Assessment: - Prior to the procedure, a History and Physical was performed, and patient medications and allergies were reviewed. The patient's tolerance of previous anesthesia was also reviewed. The risks and benefits of the procedure and the sedation options and risks were discussed with the patient. All questions were answered, and informed consent was obtained. Prior Anticoagulants: The patient has taken no previous anticoagulant or antiplatelet agents. ASA Grade Assessment: III - A patient with severe systemic disease. After reviewing the risks and benefits, the patient was deemed in satisfactory condition to undergo the procedure. After obtaining informed consent, the endoscope was passed under direct vision. Throughout the procedure, the patient's blood pressure, pulse, and oxygen saturations were monitored continuously. The scope was introduced through the mouth, and advanced to the third part of duodenum. The upper GI endoscopy was accomplished without difficulty. The patient tolerated the procedure well. Findings: The esophagus was normal. A small hiatus hernia was present. Localized moderate inflammation characterized by erythema was found in the gastric antrum. Biopsies were taken with a cold forceps for histology. Many non-bleeding cratered duodenal ulcers with no stigmata of bleeding were found in the first part of the duodenum and in the second part of the duodenum. The largest lesion was 10 mm in largest dimension. Impression: - Normal esophagus. - Small hiatus hernia. - Gastritis. Biopsied. - Multiple non-bleeding duodenal ulcers with no stigmata of bleeding. Recommendation: - [facility]. - Use Protonix (pantoprazole) 40 mg IV BID. - Perform a CT scan (computed tomography) of chest with contrast, abdomen with contrast and pelvis with contrast today. - Check Gastrin level today. Abdias Mosley DO 01/31/2017 12:55:05 PM This report has been signed electronically. Note Initiated On: 01/31/2017 12:22 PM I attest to the content of the Intraoperative Record and orders documented therein, exceptions below
[2017-01-31] MEDS ORDERED: OPTIRAY 320 IV PRN (13:00)
--- NOTE | 2017-01-31 13:28 | Anesthesiology Progress Note ---
Anesthesia Post Op Note Date & Time Jan 31, 2017 at 13:28 Vital Signs Pain Intensity: 0 Vital Signs Past 12 Hours Date Time Temp Pulse Resp B/P (MAP) Pulse Ox O2 Delivery O2 Flow Rate FiO2 01/31/17 13:21 66 18 131/84 (100) 92 Room Air 01/31/17 13:06 71 18 132/85 (101) 98 Mask 7 01/31/17 12:51 85 18 115/88 (97) 96 Mask 7 01/31/17 11:23 37.1 81 18 149/79 (102) 91 Room Air 01/31/17 08:09 36.7 67 16 130/79 (96) 95 Room Air 01/31/17 08:00 Room Air Notes Mental Status: alert / awake / arousable, participated in evaluation Pt Amnestic to Procedure: Yes Nausea / Vomiting: adequately controlled Pain: adequately controlled Airway Patency, RR, SpO2: stable & adequate BP & HR: stable & adequate Hydration State: stable & adequate Anesthetic Complications: no major complications apparent
--- NOTE | 2017-01-31 13:59 | Progress Note ---
Subjective Date of Service: Jan 31, 2017. Subjective Pt evaluation today including: conversation w/ patient, physical exam, chart review, lab review, review of studies, review of inpatient medication list Reports increased anxiety Unable to take neurontin and states lower ext neuropathy is worse No acute events overnight Problem List Medical Problems: (1) Acute head injury Status: Acute (2) Ambulatory dysfunction Status: Acute (3) Dysphagia Status: Acute (4) Fall Status: Acute (5) Hypoxia Status: Acute (6) Low back pain Status: Acute (7) Mood disorder Status: Acute (8) Mood disorder Status: Acute (9) Narcotic-induced respiratory depression Status: Acute (10) Opiate overdose Status: Acute (11) Overdose of sleeping tabs Status: Acute (12) Suicidal ideation Status: Acute (13) Suicide attempt Status: Acute Review of Systems Constitutional: No fever, No chills, No sweats, No weakness, No fatigue Eyes: No worsening of vision, No eye pain, No redness, No discharge ENT: + trouble swallowing, No hearing loss, No unusual epistaxis, No nasal symptoms Respiratory: No cough, No sputum, No wheezing, No shortness of breath Cardiac: No chest pain, No orthopnea, No PND, No edema Abdomen: No pain, No nausea, No vomiting, No diarrhea, No constipation Musculoskeletal: No joint pain, No muscle pain, No swelling, No calf pain Male : No dysuria, No urinary frequency, No incontinence, No slowing stream Neurologic: No memory loss, No paralysis, No weakness, No numbness/tingling Psychiatric: No depression symptoms, No anhedonism, No anxiety, No insomnia Heme: No abnormal bleeding/bruising, No clotting problems Endo: No fatigue, No excessive thirst Objective Vital Signs Date Time Temp Pulse Resp B/P (MAP) Pulse Ox O2 Delivery O2 Flow Rate FiO2 01/31/17 13:21 66 18 131/84 (100) 92 Room Air 01/31/17 13:06 71 18 132/85 (101) 98 Mask 7 01/31/17 12:51 85 18 115/88 (97) 96 Mask 7 01/31/17 11:23 37.1 81 18 149/79 (102) 91 Room Air 01/31/17 08:09 36.7 67 16 130/79 (96) 95 Room Air 01/31/17 08:00 Room Air 01/31/17 00:27 36.8 72 18 156/87 (110) 93 Room Air 01/30/17 23:45 Room Air 01/30/17 20:02 36.8 90 18 160/98 90 Room Air 01/30/17 17:17 36.8 90 18 160/98 (118) 90 Physical Exam General Appearance: WD/WN, no apparent distress ENT: normal ENT inspection, hearing grossly normal, TMs normal, pharynx normal Neck: supple, no adenopathy, thyroid normal, no JVD Respiratory/Chest: chest non-tender, lungs clear, normal breath sounds, no respiratory distress Cardiovascular: regular rate, rhythm, no edema, no gallop, no JVD Abdomen: normal bowel sounds, non tender, soft, no organomegaly Extremities: normal range of motion, non-tender, normal inspection, no pedal edema Neurologic/Psychiatric: no motor/sensory deficits, alert, normal mood/affect, oriented x 3 Laboratory Results Last 24 Hours Test 01/30/17 18:27 01/31/17 12:47 White Blood Count 8.22 K/uL Red Blood Count 5.70 M/uL Hemoglobin 17.2 g/dL Hematocrit 48.0 % Mean Corpuscular Volume 84.2 fL Mean Corpuscular Hemoglobin 30.2 pg Mean Corpuscular Hemoglobin Concent 35.8 g/dl Platelet Count 206 K/uL Mean Platelet Volume 8.4 fL Neutrophils (%) (Auto) 71.2 % Lymphocytes (%) (Auto) 17.8 % Monocytes (%) (Auto) 10.2 % Eosinophils (%) (Auto) 0.4 % Basophils (%) (Auto) 0.2 % Neutrophils # (Auto) 5.85 K/uL Lymphocytes # (Auto) 1.46 K/uL Monocytes # (Auto) 0.84 K/uL Eosinophils # (Auto) 0.03 K/uL Basophils # (Auto) 0.02 K/uL RDW Standard Deviation 38.2 fL RDW Coefficient of Variation 12.7 % Immature Granulocyte % (Auto) 0.2 % Immature Granulocyte # (Auto) 0.02 K/uL Sodium Level 141 mmol/L Potassium Level 4.0 mmol/L Chloride Level 108 mmol/L Carbon Dioxide Level 26 mmol/L Anion Gap 7.0 mmol/L Blood Urea Nitrogen 17 mg/dl Creatinine 1.00 mg/dl Estimated GFR () 87.4 Estimated GFR (Non- 75.4 BUN/Creatinine Ratio 16.6 Random Glucose 97 mg/dl Calcium Level 9.4 mg/dl Magnesium Level 2.2 mg/dl Total Bilirubin 0.9 mg/dl Aspartate Amino Transf (AST/SGOT) 15 U/L Alanine Aminotransferase (ALT/SGPT) 24 U/L Alkaline Phosphatase 108 U/L Total Protein 7.4 gm/dl Albumin 3.6 gm/dl Globulin 3.8 gm/dl Albumin/Globulin Ratio 0.9 Prealbumin 19.1 mg/dl Assessment and Plan Dysphagia/21 pound weight loss in the past month-- Admitted to the medical floor and kept NPO GI consulted EGD completed 01/31 - mult duodenal ulcers found, nonbleeding CT chest and abd/pelvis ordered PT/OT consulted Consult speech therapy to evaluate and treat, vid swallow ordered Suspect he has dysmotility secondary to Parkinson's. Normal saline with KCl 20 mEq 100 ML's per hour. Hypertension-- Continue amlodipine,losartan and metoprolol succinate Parkinson's-- Continue carbidopa/levodopa Hyperlipidemia-- Continue atorvastatin. Hypothyroidism-- Continue levothyroxine Restless leg syndrome-- Continue ropinirole Bipolar disorder-- Continue risperidone, buspirone, trazodone and lamotrigine. Continue lorazepam and melatonin. GPN-- Continue gabapentin
[2017-01-31 14:07] VITALS: BP 154/85; PULSE 72; TEMP 36.8; O2SAT 94
--- NOTE | 2017-01-31 15:37 | DIAGNOSTIC IMAGING REPORT ---
CT OF THE CHEST WITH IV CONTRAST CLINICAL HISTORY: weight loss, Dypshagia COMPARISON STUDY: 05/02/2010 , chest x-ray dated 01/30/2017 TECHNIQUE: Following the IV administration of 93 mL of Optiray-320, CT of the thorax was performed from the thoracic inlet to the lung bases. Images are reviewed in the axial, sagittal, and coronal planes. IV contrast was administered without complication. A dose lowering technique was utilized adhering to the principles of ALARA. CT DOSE: 1827.42 mGy.cm FINDINGS: Thyroid: Imaged portions of the thyroid gland are normal in appearance. Thoracic aorta: The ascending thoracic aorta measures 37 mm in diameter. Pulmonary vasculature: The pulmonary trunk is normal in caliber. There are no central filling defects identified to suggest pulmonary embolus. Note that this examination was not protocoled for the evaluation of pulmonary emboli. HEART: There are prominent coronary artery calcifications. Lungs and pleural spaces: There are dependent bilateral atelectatic changes. There is no lobar consolidation. There are bilateral pleural calcifications. Mediastinum: There are mildly enlarged mediastinal lymph nodes, relatively similar to the preceding study. Deidra: There are mildly enlarged right hilar lymph nodes. Axilla: Clear. Upper abdomen: There is a 17 mm left adrenal gland nodule. On the prior noncontrast study, this had characteristics consistent with adenoma. There is a partially visualized mid pole left renal column of Aung versus subtle renal mass. Skeletal structures: There are no lytic or blastic osseous lesions. IMPRESSION: 1. Mild mediastinal and right hilar lymphadenopathy 2. Coronary artery calcifications 3. Bilateral calcified pleural plaques and dependent atelectatic change 4. No evidence of focal pulmonary consolidation 5. Left adrenal adenoma Electronically signed by: Homer Alonso M.D. 01/31/2017 3:35 PM Dictated Date/Time: 01/31/2017 3:25 PM
[2017-01-31 15:49] VITALS: BP 148/81; PULSE 64; TEMP 36.8; O2SAT 93
--- NOTE | 2017-01-31 15:51 | DIAGNOSTIC IMAGING REPORT ---
ABD/PELVIS IV AND ORAL CONT HISTORY: 71 years-old Male Abdominal pain, Multiple Duodenal ulcers COMPARISON: CT abdomen and pelvis 03/16/2014 TECHNIQUE: Multiple axial CT images of the abdomen and pelvis were obtained following the intravenous administration of 93 mL Optiray 320. Oral contrast was also used. A dose lowering technique was used consistent with the principals of PAM. FINDINGS: Streak artifact is present secondary to positioning of patient's arms. Bilateral pleural plaques at the lung bases suggest prior asbestos exposure. Subsegmental bibasilar atelectasis is noted. No definite pneumoperitoneum identified. The imaged inferior cardiac chambers demonstrate coronary arterial disease. There is focal wall thickening/redundancy or adenomyomatosis of the fundal gallbladder. The liver, spleen, pancreas and right adrenal gland are unremarkable. There is a 1.5 x 1.0 cm soft tissue attenuating left adrenal nodule which was low attenuating on comparison noncontrast study compatible with adenoma, unchanged in size. Multiple left-sided renal calculi are seen with 6 x 8 x 9 mm calculus of the left ureteropelvic junction causing mild left-sided hydronephrosis. No right-sided renal calculi. Urinary bladder is mildly distended. Coarse parenchymal calcifications involve the central prostate. There is moderate atherosclerotic plaquing of the abdominal aorta and its branches. Note is made of a retroaortic left renal vein. No bulky adenopathy identified. There is mild wall thickening of the proximal duodenum which is nonspecific. Colonic diverticulosis noted without acute diverticulitis. The appendix appears normal. Soft tissues are unremarkable. Severe multilevel discogenic degenerative changes and facet arthropathy is noted within the lower lumbar spine. There is convex right curvature of the lumbar spine. IMPRESSION: 1. 6 x 8 x 9 mm calculus of the left ureteropelvic junction is present causing mild hydronephrosis. Multiple additional left-sided nephrolithiasis redemonstrated. 2. Colonic diverticulosis without diverticulitis. 3. Mild nonspecific wall thickening of the duodenum may correlate with patient's reported history of duodenal ulcers. This could be correlated with endoscopy. No pneumoperitoneum. 4. Probable adenomyomatosis of the fundal gallbladder. 5. Additional incidental findings as above. The above report was generated using voice recognition software. It may contain grammatical, syntax or spelling errors. Electronically signed by: Hieu Maxwell M.D. 01/31/2017 3:49 PM Dictated Date/Time: 01/31/2017 3:40 PM
[2017-01-31] MEDS: PANTOprazole INJ 40 MG in SYRINGE 0 ML IV SCH (20:47)
[2017-01-31] MEDS: ROPINIROLE HCL 1 MG TAB PO SCH (20:54)
[2017-01-31] MEDS: ATORVASTATIN 40 MG TAB PO SCH (21:00)
[2017-01-31] MEDS: TRAZODONE HCL 100 MG TAB PO SCH (21:00)
[2017-01-31 22:31] VITALS: BP 127/79; PULSE 63; TEMP 36.4; O2SAT 92
[2017-02-01] MEDS: NSS + 20MEQ KCL 1000ML 1,000 ML IV SCH ×3 (00:36→20:25)
[2017-02-01] MEDS: LEVOTHYROXINE 50 MCG TAB PO SCH (05:19)
[2017-02-01 08:08] VITALS: BP 120/73; PULSE 57; TEMP 37; O2SAT 94
[2017-02-01] MEDS: GABAPENTIN 600 MG TAB PO SCH ×3 (08:48→20:41)
[2017-02-01] MEDS: AMLODIPINE BESYLATE 5 MG TAB PO SCH (08:48)
[2017-02-01] MEDS: LORAZEPAM 0.5 MG TAB PO PRN (08:48)
[2017-02-01] MEDS: BusPIRone 15 MG TAB PO SCH ×3 (08:49→20:40)
[2017-02-01] MEDS: RISPERIDONE 2 MG TAB PO SCH ×2 (08:49→20:36)
[2017-02-01] MEDS: LOSARTAN POTASSIUM 50 MG TAB PO SCH (08:49)
[2017-02-01] MEDS: PANTOprazole INJ 40 MG in SYRINGE 0 ML IV SCH ×2 (08:57→20:25)
[2017-02-01] MEDS: DOCUSATE SODIUM 100 MG CAP PO SCH ×2 (08:58→20:43)
[2017-02-01] MEDS: MULTIVITAMIN TAB PO SCH (08:58)
[2017-02-01] MEDS: LIDODERM (LIDOCAINE) PATCH 5% TD SCH (08:59)
[2017-02-01] MEDS: CARBIDOPA/LEVODOPA 25/100MG TAB PO SCH ×3 (08:59→20:38)
[2017-02-01 09:19] VITALS: PULSE 64
--- NOTE | 2017-02-01 10:08 | Gastroenterology Progress Note ---
Progress Note Date of Service: Feb 01, 2017 Subjective Pt evaluation today including: conversation w/ patient, physical exam, chart review, lab review Patient reports feeling "better" today. EGD yesterday with findings of duodenal ulcerations. Pathology and serum gastrin level pending. Denies any abdominal pain, nausea or vomiting or overt GIB. Has been started on Protonix 40 mg BID. Video swallow and PHYSICAL TESTING SUPERVISOR evaluation has been ordered for evaluation of dysphagia as no explanation for symptoms on EGD. Review of Systems Constitutional: No fever, No chills Respiratory: No problem reported Cardiac: No problem reported Abdomen: + see HPI Neuro: No problem reported Medications Current Inpatient Medications Medications (Trade) Dose Ordered Sig/[place] Route Start Time Stop Time Status Last Admin Dose Admin Acetaminophen (Tylenol Tab) 650 mg Q4H PRN PO 01/30/17 18:30 03/01/17 18:29 Atorvastatin Calcium (Lipitor Tab) 40 mg QPM PO 01/30/17 21:00 03/01/17 20:59 Buspirone HCl (BusPAR TAB) 15 mg TID PO 01/30/17 21:00 03/01/17 20:59 02/01/17 08:49 15 MG Carbidopa/Levodopa (Sinemet 25/ 100MG Tab) 1 tab TID PO 01/30/17 21:00 03/01/17 20:59 01/31/17 20:54 1 TAB Docusate Sodium (coLACE CAP) 100 mg BID PO 01/30/17 21:00 03/01/17 20:59 Gabapentin (Neurontin Tab) 600 mg TID PO 01/30/17 21:00 03/01/17 20:59 02/01/17 08:48 600 MG Lamotrigine (Lamictal Tab) 200 mg BID PO 01/30/17 21:00 03/01/17 20:59 02/01/17 08:50 200 MG Levothyroxine Sodium (Synthroid Tab) 50 mcg DAILYBB PO 01/31/17 06:30 03/02/17 06:29 01/31/17 05:52 50 MCG Lidocaine (Lidoderm Patch 5%) 1 patch QAM TD 01/31/17 09:00 03/02/17 08:59 01/31/17 09:32 1 PATCH Lorazepam (Ativan Tab) 0.5 mg Q8 PRN PO 01/30/17 18:30 03/01/17 18:29 02/01/17 08:48 0.5 MG Losartan Potassium (coZAAR TAB) 100 mg DAILY PO 01/31/17 09:00 03/02/17 08:59 02/01/17 08:49 100 MG Metoprolol Succinate (Toprol Xl Tab) 200 mg DAILY PO 01/31/17 09:00 03/02/17 08:59 Multivitamins (Multivitamin Tab) 1 tab QAM PO 01/31/17 09:00 03/02/17 08:59 Polyethylene (Miralax Powder Packet) 17 gm DAILY PRN PO 01/30/17 18:30 03/01/17 18:29 Risperidone (Risperdal Tab) 2 mg QAM PO 01/31/17 09:00 03/02/17 08:59 02/01/17 08:49 2 MG Risperidone (Risperdal Tab) 4 mg QPM PO 01/30/17 21:00 03/01/17 20:59 Ropinirole HCl (Requip Tab) 2 mg HS PO 01/30/17 21:00 03/01/17 20:59 01/31/17 20:54 2 MG Amlodipine Besylate (Norvasc Tab) 10 mg QAM PO 01/31/17 09:00 03/02/17 08:59 02/01/17 08:48 10 MG Trazodone HCl (Desyrel Tab) 150 mg HS PO 01/30/17 21:00 03/01/17 20:59 Miscellaneous (Remove Lidoderm Patch) 1 ea DAILY@21 N/A 01/30/17 21:00 03/01/17 20:59 01/31/17 21:06 1 EA Potassium Chloride/Sodium Chloride 1,000 ml @ 100 mls/hr Q10H IV 01/30/17 19:00 03/01/17 18:34 02/01/17 00:36 100 MLS/HR Morphine Sulfate (MoRPHine SULFATE INJ) 2 mg ONE PRN IV 01/30/17 20:45 02/13/17 20:44 01/30/17 21:03 2 MG Pantoprazole Sodium 40 mg/ Syringe 10 ml @ 5 mls/min BID@0900,2100 IV 01/31/17 21:00 03/02/17 20:59 02/01/17 08:57 5 MLS/MIN Ioversol (Optiray 320) 125 ml UD PRN IV 01/31/17 13:00 02/04/17 12:59 Objective Vital Signs Date Time Temp Pulse Resp B/P (MAP) Pulse Ox O2 Delivery O2 Flow Rate FiO2 02/01/17 09:19 64 02/01/17 08:08 37.0 57 18 120/73 (89) 94 Room Air 02/01/17 00:00 Room Air 01/31/17 22:31 36.4 63 18 127/79 (95) 92 Room Air 01/31/17 20:00 Room Air 01/31/17 16:00 Room Air 01/31/17 15:49 36.8 64 20 148/81 (103) 93 Room Air 01/31/17 14:07 36.8 72 20 154/85 (108) 94 Room Air 01/31/17 13:21 66 18 131/84 (100) 92 Room Air 01/31/17 13:06 71 18 132/85 (101) 98 Mask 7 01/31/17 12:51 85 18 115/88 (97) 96 Mask 7 01/31/17 11:23 37.1 81 18 149/79 (102) 91 Room Air Physical Exam General Appearance: no apparent distress Respiratory/Chest: lungs clear, normal breath sounds, no respiratory distress Cardiovascular: regular rate, rhythm, no gallop Abdomen: normal bowel sounds, non tender, soft Neurologic/Psych: alert, normal mood/affect, oriented x 3 Laboratory Results Last 24 Hours Test 02/01/17 06:52 Assessment and Plan 1. Clear liquid diet for now. 2. Await video swallow and PHYSICAL TESTING SUPERVISOR evaluation. 3. Continue Pantoprazole 40 mg BID. 4. Await pathology and gastrin level as ordered. Agree with FELICIA Guardado as above Abd: Soft, NT, ND, +BS States he is swallowing better today. Feeling better and asking for increased diet Continue current therapy PHYSICAL TESTING SUPERVISOR evaluation and video swallow pending.
[2017-02-01] MEDS: METOPROLOL SUCC 50MG EXT REL TAB PO SCH (10:17)
[2017-02-01] MEDS ORDERED: METH4PAK PO (11:35)
--- NOTE | 2017-02-01 11:46 | Progress Note ---
Subjective Date of Service: Feb 01, 2017. Subjective Pt evaluation today including: conversation w/ patient, physical exam, chart review, lab review, review of studies, review of inpatient medication list Pt denies any discomfort Resting comfortably in bed No acute events overnight Problem List Medical Problems: (1) Acute head injury Status: Acute (2) Ambulatory dysfunction Status: Acute (3) Dysphagia Status: Acute (4) Fall Status: Acute (5) Hypoxia Status: Acute (6) Low back pain Status: Acute (7) Mood disorder Status: Acute (8) Mood disorder Status: Acute (9) Narcotic-induced respiratory depression Status: Acute (10) Opiate overdose Status: Acute (11) Overdose of sleeping tabs Status: Acute (12) Suicidal ideation Status: Acute (13) Suicide attempt Status: Acute Review of Systems Constitutional: No fever, No chills, No sweats, No weight loss, No weakness ENT: + trouble swallowing, No hearing loss, No unusual epistaxis, No nasal symptoms Respiratory: No cough, No sputum, No wheezing, No shortness of breath, No dyspnea on exertion Cardiac: No chest pain, No orthopnea, No PND, No edema Abdomen: No pain, No nausea, No vomiting, No diarrhea, No constipation Musculoskeletal: No joint pain, No muscle pain, No swelling, No calf pain Male : No dysuria, No urinary frequency, No incontinence, No slowing stream Neurologic: No memory loss, No paralysis, No weakness, No numbness/tingling Psychiatric: No depression symptoms, No anhedonism, No anxiety, No insomnia Endo: No fatigue, No excessive thirst Skin: No rash, No itch Objective Vital Signs Date Time Temp Pulse Resp B/P (MAP) Pulse Ox O2 Delivery O2 Flow Rate FiO2 02/01/17 09:19 64 02/01/17 08:08 37.0 57 18 120/73 (89) 94 Room Air 02/01/17 08:00 Room Air 02/01/17 00:00 Room Air 01/31/17 22:31 36.4 63 18 127/79 (95) 92 Room Air 01/31/17 20:00 Room Air 01/31/17 16:00 Room Air 01/31/17 15:49 36.8 64 20 148/81 (103) 93 Room Air 01/31/17 14:07 36.8 72 20 154/85 (108) 94 Room Air 01/31/17 13:21 66 18 131/84 (100) 92 Room Air 01/31/17 13:06 71 18 132/85 (101) 98 Mask 7 01/31/17 12:51 85 18 115/88 (97) 96 Mask 7 Physical Exam General Appearance: WD/WN, no apparent distress ENT: normal ENT inspection, hearing grossly normal, TMs normal, pharynx normal Neck: supple, no adenopathy, thyroid normal, no JVD Respiratory/Chest: chest non-tender, lungs clear, normal breath sounds, no respiratory distress Cardiovascular: regular rate, rhythm, no edema, no gallop, no JVD Abdomen: normal bowel sounds, non tender, soft, no organomegaly Extremities: normal range of motion, non-tender, normal inspection, no pedal edema Neurologic/Psychiatric: no motor/sensory deficits, alert, normal mood/affect Laboratory Results Last 24 Hours Test 02/01/17 06:52 Assessment and Plan Dysphagia/21 pound weight loss in the past month-- Admitted to the medical floor GI consulted EGD completed 01/31 - mult duodenal ulcers found, nonbleeding Advanced to liquid diet, 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 UTI-- Call from PA from [facility] Reported staph epidermidis infection Started on keflex 500 mg PO BID, cont to monitor Hypertension-- Continue amlodipine,losartan and metoprolol succinate Parkinson's-- Continue carbidopa/levodopa Hyperlipidemia-- Continue atorvastatin. Hypothyroidism-- Continue levothyroxine Restless leg syndrome-- Continue ropinirole Bipolar disorder-- Continue risperidone, buspirone, trazodone and lamotrigine. Continue lorazepam and melatonin. GPN-- Continue gabapentin
--- NOTE | 2017-02-01 14:38 | DIAGNOSTIC IMAGING REPORT ---
MODIFIED BARIUM SWALLOW CLINICAL HISTORY: Progressive dysphagia. COMPARISON STUDY: Modified barium swallow January 11, 2017. Fluoroscopy time: 1.6 minutes. FINDINGS: Several episodes of tracheal aspiration were noted with thin liquids by spoon. There was delayed initiation of the swallowing mechanism with premature spillage. There was no aspiration with honey thick liquids, pudding or crackers with paste. Residuals were noted within the piriform sinuses and vallecula. IMPRESSION: 1. Several episodes of tracheal aspiration with thin liquids by spoon. Amount of aspiration was greater than shown on exam of January 11, 2017. 2. Full recommendations by speech pathology to follow. Electronically signed by: Andre Wilhelm M.D. 02/01/2017 2:37 PM Dictated Date/Time: 02/01/2017 2:34 PM
[2017-02-01 16:25] VITALS: BP 96/61; PULSE 77; TEMP 36.7; O2SAT 93
[2017-02-01] MEDS: TRAZODONE HCL 100 MG TAB PO SCH (20:29)
[2017-02-01] MEDS: CEPHALEXIN MONOHYDRATE 500 MG CAP PO SCH (20:35)
[2017-02-01] MEDS: ATORVASTATIN 40 MG TAB PO SCH (20:43)
[2017-02-01] MEDS: ROPINIROLE HCL 1 MG TAB PO SCH (20:43)
[2017-02-01 23:19] VITALS: BP 128/77; PULSE 66; TEMP 36.5; O2SAT 92
[2017-02-02] MEDS: LEVOTHYROXINE 50 MCG TAB PO SCH (06:02)
[2017-02-02] MEDS: NSS + 20MEQ KCL 1000ML 1,000 ML IV SCH ×2 (06:02→16:41)
[2017-02-02 07:28] VITALS: BP 128/79; PULSE 59; TEMP 36.5; O2SAT 92
[2017-02-02] MEDS: MULTIVITAMIN TAB PO SCH (09:00)
[2017-02-02] MEDS: DOCUSATE SODIUM 100 MG CAP PO SCH ×2 (09:00→21:00)
[2017-02-02] MEDS: LIDODERM (LIDOCAINE) PATCH 5% TD SCH (09:00)
[2017-02-02] MEDS: METOPROLOL SUCC 50MG EXT REL TAB PO SCH (09:00)
[2017-02-02] MEDS: PANTOprazole INJ 40 MG in SYRINGE 0 ML IV SCH ×2 (09:21→21:58)
[2017-02-02] MEDS: LOSARTAN POTASSIUM 50 MG TAB PO SCH (09:21)
[2017-02-02] MEDS: BusPIRone 15 MG TAB PO SCH ×3 (09:22→22:04)
[2017-02-02] MEDS: AMLODIPINE BESYLATE 5 MG TAB PO SCH (09:22)
[2017-02-02] MEDS: GABAPENTIN 600 MG TAB PO SCH ×3 (09:22→22:06)
[2017-02-02] MEDS: CEPHALEXIN MONOHYDRATE 500 MG CAP PO SCH ×2 (09:23→22:05)
[2017-02-02] MEDS: CARBIDOPA/LEVODOPA 25/100MG TAB PO SCH ×3 (09:23→22:06)
[2017-02-02] MEDS: RISPERIDONE 2 MG TAB PO SCH ×2 (09:24→22:06)
[2017-02-02 09:26] VITALS: PULSE 58
--- NOTE | 2017-02-02 09:30 | Gastroenterology Progress Note ---
Progress Note Date of Service: Feb 02, 2017 Subjective Pt evaluation today including: conversation w/ patient, physical exam, chart review, lab review, review of inpatient medication list Patient is without any complaints at present. Improved swallowing. 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 No abdominal pain, nausea or vomiting or other complaints. Pathology has returned with a positive H pylori stain. Review of Systems Constitutional: + fatigue Respiratory: No problem reported Cardiac: No problem reported Abdomen: + see HPI Psych: No problem reported Medications Current Inpatient Medications Medications (Trade) Dose Ordered Sig/[place] Route Start Time Stop Time Status Last Admin Dose Admin Acetaminophen (Tylenol Tab) 650 mg Q4H PRN PO 01/30/17 18:30 03/01/17 18:29 Atorvastatin Calcium (Lipitor Tab) 40 mg QPM PO 01/30/17 21:00 03/01/17 20:59 Buspirone HCl (BusPAR TAB) 15 mg TID PO 01/30/17 21:00 03/01/17 20:59 02/01/17 20:40 15 MG Carbidopa/Levodopa (Sinemet 25/ 100MG Tab) 1 tab TID PO 01/30/17 21:00 03/01/17 20:59 02/01/17 20:38 1 TAB Docusate Sodium (coLACE CAP) 100 mg BID PO 01/30/17 21:00 03/01/17 20:59 Gabapentin (Neurontin Tab) 600 mg TID PO 01/30/17 21:00 03/01/17 20:59 02/01/17 20:41 600 MG Lamotrigine (Lamictal Tab) 200 mg BID PO 01/30/17 21:00 03/01/17 20:59 02/01/17 20:39 200 MG Levothyroxine Sodium (Synthroid Tab) 50 mcg DAILYBB PO 01/31/17 06:30 03/02/17 06:29 02/02/17 06:02 50 MCG Lidocaine (Lidoderm Patch 5%) 1 patch QAM TD 01/31/17 09:00 03/02/17 08:59 01/31/17 09:32 1 PATCH Lorazepam (Ativan Tab) 0.5 mg Q8 PRN PO 01/30/17 18:30 03/01/17 18:29 02/01/17 08:48 0.5 MG Losartan Potassium (coZAAR TAB) 100 mg DAILY PO 01/31/17 09:00 03/02/17 08:59 02/01/17 08:49 100 MG Metoprolol Succinate (Toprol Xl Tab) 200 mg DAILY PO 01/31/17 09:00 03/02/17 08:59 Multivitamins (Multivitamin Tab) 1 tab QAM PO 01/31/17 09:00 03/02/17 08:59 Polyethylene (Miralax Powder Packet) 17 gm DAILY PRN PO 01/30/17 18:30 03/01/17 18:29 Risperidone (Risperdal Tab) 2 mg QAM PO 01/31/17 09:00 03/02/17 08:59 02/01/17 08:49 2 MG Risperidone (Risperdal Tab) 4 mg QPM PO 01/30/17 21:00 03/01/17 20:59 02/01/17 20:36 4 MG Ropinirole HCl (Requip Tab) 2 mg HS PO 01/30/17 21:00 03/01/17 20:59 01/31/17 20:54 2 MG Amlodipine Besylate (Norvasc Tab) 10 mg QAM PO 01/31/17 09:00 03/02/17 08:59 02/01/17 08:48 10 MG Trazodone HCl (Desyrel Tab) 150 mg HS PO 01/30/17 21:00 03/01/17 20:59 02/01/17 20:29 150 MG Miscellaneous (Remove Lidoderm Patch) 1 ea DAILY@21 N/A 01/30/17 21:00 03/01/17 20:59 02/01/17 20:28 1 EA Potassium Chloride/Sodium Chloride 1,000 ml @ 100 mls/hr Q10H IV 01/30/17 19:00 03/01/17 18:34 02/02/17 06:02 100 MLS/HR Morphine Sulfate (MoRPHine SULFATE INJ) 2 mg ONE PRN IV 01/30/17 20:45 02/13/17 20:44 01/30/17 21:03 2 MG Pantoprazole Sodium 40 mg/ Syringe 10 ml @ 5 mls/min BID@0900,2100 IV 01/31/17 21:00 03/02/17 20:59 02/01/17 20:25 5 MLS/MIN Ioversol (Optiray 320) 125 ml UD PRN IV 01/31/17 13:00 02/04/17 12:59 Cephalexin Monohydrate (Keflex Cap) 500 mg BID PO 02/01/17 21:00 02/06/17 20:59 02/01/17 20:35 500 MG Amoxicillin (Amoxil Cap) 1,000 mg BID PO 02/02/17 09:00 02/12/17 08:59 UNV Clarithromycin (Biaxin Tab) 500 mg Q12 PO 02/02/17 09:00 02/12/17 08:59 UNV Objective Vital Signs Date Time Temp Pulse Resp B/P (MAP) Pulse Ox O2 Delivery O2 Flow Rate FiO2 02/02/17 08:25 Room Air 02/02/17 07:28 36.5 59 16 128/79 (95) 92 Room Air 02/02/17 00:00 Room Air 02/01/17 23:19 36.5 66 18 128/77 (94) 92 Room Air 02/01/17 16:25 36.7 77 18 96/61 (73) 93 Room Air 02/01/17 16:00 Room Air Physical Exam General Appearance: no apparent distress Eyes: EOMI Neck: supple Respiratory/Chest: lungs clear, normal breath sounds, no respiratory distress Cardiovascular: regular rate, rhythm, no gallop, no murmur Abdomen: normal bowel sounds, non tender, soft Extremities: normal inspection Neurologic/Psych: alert, normal mood/affect, oriented x 3 Skin: warm/dry Assessment and Plan Patient is a 71 year old male admitted with dysphagia to both solids and liquids as well as ~50 pound unintentional weight loss with H pylori-associated PUD. 1. Continue dietary advancement with incorporation with nectar thickened liquids and strict aspiration precautions. 2. Start Amoxicillin 1 g BID and Clarithromycin 500 mg BID x 14 days. 3. Continue Pantoprazole 40 mg BID. 4. Supportive care per primary team. Agree with FELICIA Guardado as above Abd: Soft, NT, ND, +BS Continue Pantoprazole 40mg by mouth Twice daily indefinitely Completed 14 day course of Biaxin and Amoxil as above Check H. pylori stool Ag in 8 weeks to ensure eradication
[2017-02-02] MEDS: AMOXICILLIN 500 MG CAP PO SCH ×2 (11:11→22:03)
[2017-02-02] MEDS: CLARITHROMYCIN 500 MG TAB PO SCH ×2 (11:12→22:04)
[2017-02-02 16:14] VITALS: BP 96/61; PULSE 62; TEMP 36.5; O2SAT 93
--- NOTE | 2017-02-02 18:27 | Progress Note ---
Subjective Date of Service: Feb 02, 2017. Subjective Pt evaluation today including: conversation w/ patient, conversation w/ family , physical exam, chart review, lab review, review of inpatient medication list Problem List Medical Problems: (1) Acute head injury Status: Acute (2) Ambulatory dysfunction Status: Acute (3) Dysphagia Status: Acute (4) Fall Status: Acute (5) Hypoxia Status: Acute (6) Low back pain Status: Acute (7) Mood disorder Status: Acute (8) Mood disorder Status: Acute (9) Narcotic-induced respiratory depression Status: Acute (10) Opiate overdose Status: Acute (11) Overdose of sleeping tabs Status: Acute (12) Suicidal ideation Status: Acute (13) Suicide attempt Status: Acute Review of Systems Constitutional: No see HPI, No fever, No chills, No sweats, No weight loss, No weakness, No fatigue, No problem reported Eyes: No see HPI, No worsening of vision, No eye pain, No redness, No discharge , No diplopia, No problem reported ENT: No see HPI, No hearing loss, No unusual epistaxis, No nasal symptoms, No sore throat, No tinnitus, No dental problems, No trouble swallowing, No problem reported Respiratory: No see HPI, No cough, No sputum, No wheezing, No shortness of breath, No dyspnea on exertion, No dyspnea at rest, No hemoptysis, No problem reported Cardiac: No see HPI, No chest pain, No orthopnea, No PND, No edema, No claudication, No palpitations, No problem reported Abdomen: No see HPI, No pain, No nausea, No vomiting, No diarrhea, No constipation, No GI bleeding, No problem reported Musculoskeletal: No see HPI, No joint pain, No muscle pain, No swelling, No calf pain, No problem reported Male : No see HPI, No dysuria, No urinary frequency, No incontinence, No nocturia more than once/night, No slowing stream, No hematuria, No sexual dysfunction, No problem reported Neurologic: No see HPI, No memory loss, No paralysis, No weakness, No numbness/ tingling, No vertigo, No balance problems, No problem reported Psychiatric: No see HPI, No depression symptoms, No anhedonism, No anxiety, No insomnia, No substance abuse, No problem reported Heme: No see HPI, No abnormal bleeding/bruising, No clotting problems, No swollen lymph nodes, No night sweats, No problem reported Endo: No see HPI, No fatigue, No excessive thirst, No excessive urination, No problem reported Skin: No see HPI, No rash, No itch, No new/changing skin lesions, No color change, No bleeding, No problem reported Objective Vital Signs Date Time Temp Pulse Resp B/P (MAP) Pulse Ox O2 Delivery O2 Flow Rate FiO2 02/02/17 16:14 36.5 62 18 96/61 (73) 93 Room Air 02/02/17 09:26 58 02/02/17 08:25 Room Air 02/02/17 08:00 Room Air 02/02/17 07:28 36.5 59 16 128/79 (95) 92 Room Air 02/02/17 00:00 Room Air 02/01/17 23:19 36.5 66 18 128/77 (94) 92 Room Air Physical Exam General Appearance: WD/WN, no apparent distress Eyes: normal inspection, EOMI ENT: normal ENT inspection, hearing grossly normal Neck: supple Respiratory/Chest: chest non-tender, lungs clear, normal breath sounds, no respiratory distress, no accessory muscle use Cardiovascular: regular rate, rhythm, no edema, no gallop, no JVD, no murmur Abdomen: normal bowel sounds, non tender, soft, no organomegaly Extremities: normal range of motion, non-tender, normal inspection, no pedal edema 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 Status post EGD that showed duodenal ulcerations with H. pylori infection Dysphagia/weight loss Status post barium swallow he showed Several episodes of tracheal aspiration with thin liquids by spoon. Status post EGD that showed duodenal ulceration and H. pylori, started H. pylori triple antibiotic therapy by GI, amoxicillin, clarithromycin, PPI GI consult appreciated Speech/swallow eval requested Recommendation attached below * 1. Advance diet as tolerated to pureed (moist) and NECTAR thick liquids. 2. Aspiration precautison, NO straws. Fully upright for meals and for 30 minutes after meals. Stringent oral care to include brushing all surfaces of the mouth prior to and after meals, and before bed. 3. Will need assistance with eating/safe swallow stratgeis. Alternate solids and liquid 1:1, double swallow after each bite/sip. 4. Speech will follow for tolerance. Depression/history of suicide ideation Consult psychiatrist UTI-- Call from GRACIELA from [facility] staph epidermidis infection will repeat UA Hypertension-- Continue amlodipine,losartan and metoprolol succinate Parkinson's-- Continue carbidopa/levodopa Hyperlipidemia-- Continue atorvastatin. Hypothyroidism-- Continue levothyroxine Restless leg syndrome-- Continue ropinirole Bipolar disorder-- Continue risperidone, buspirone, trazodone and lamotrigine. Continue lorazepam and melatonin. DV prophylaxis with heparin
[2017-02-02 20:29] LABS: INR 1.2 (0.9-1.1); PROTHROMBIN TIME (PATIENT) 12.4 SECONDS (9.0-12.0)
[2017-02-02] MEDS: HEPARIN SOD 5000 UNIT/0.5 ML CARP SQ SCH (22:00)
[2017-02-02] MEDS: TRAZODONE HCL 100 MG TAB PO SCH (22:04)
[2017-02-02] MEDS: ATORVASTATIN 40 MG TAB PO SCH (22:05)
[2017-02-02] MEDS: ROPINIROLE HCL 1 MG TAB PO SCH (22:06)
[2017-02-02 23:35] VITALS: BP 124/72; PULSE 66; TEMP 36.4; O2SAT 98
[2017-02-03] MEDS: NSS + 20MEQ KCL 1000ML 1,000 ML IV SCH ×3 (02:25→23:54)
[2017-02-03 04:36] LABS: URINE APPEARANCE CLEAR (CLEAR); URINE BILIRUBIN NEG (NEG); URINE COLOR YELLOW; URINE NITRITE NEG (NEG); URINE SPECIFIC GRAVITY 1.018 (1.000-1.030); UROBILINOGEN NEG (NEG); ZZUR CULT IF INDIC CLEAN CATCH YES
[2017-02-03 04:48] LABS: MANUAL MICROSCOPIC REQUIRED? NO; REVIEW REQ? YES
[2017-02-03] MEDS: LEVOTHYROXINE 50 MCG TAB PO SCH (05:52)
[2017-02-03] MEDS: HEPARIN SOD 5000 UNIT/0.5 ML CARP SQ SCH ×3 (05:54→22:45)
[2017-02-03 07:09] VITALS: BP 126/81; PULSE 65; TEMP 36.5; O2SAT 92
[2017-02-03 07:40] LABS: BASO % 0.6 %; BASO ABS # 0.03 K/uL (0-0.2); COMPLETE YES; EOS % 2.3 %; HEMATOCRIT 42.5 % (42-52); IG% 0.2 %; LYMPH % 24.7 %; LYMPH ABS # 1.16 K/uL (1.2-3.4); MEAN CELL VOLUME 87.4 fL (80-100); MEAN CORPUSCULAR HEMOGLOBIN 28.8 pg (25-34); MEAN CORPUSCULAR HGB CONC 32.9 g/dl (32-36); MEAN PLATELET VOLUME 8.2 fL (7.4-10.4); MONO % 8.9 %; NEUT % 63.3 %; PLATELET COUNT 198 K/uL (130-400); RED BLOOD COUNT 4.86 M/uL (4.7-6.1)
[2017-02-03 08:00] VITALS: O2SAT 92
[2017-02-03] MEDS: CLARITHROMYCIN 500 MG TAB PO SCH ×2 (08:11→22:41)
[2017-02-03] MEDS: METOPROLOL SUCC 50MG EXT REL TAB PO SCH (08:11)
[2017-02-03] MEDS: AMLODIPINE BESYLATE 5 MG TAB PO SCH (08:12)
[2017-02-03] MEDS: LOSARTAN POTASSIUM 50 MG TAB PO SCH (08:13)
[2017-02-03] MEDS: MULTIVITAMIN TAB PO SCH (08:13)
[2017-02-03] MEDS: RISPERIDONE 2 MG TAB PO SCH ×2 (08:13→22:52)
[2017-02-03] MEDS: BusPIRone 15 MG TAB PO SCH ×3 (08:14→22:48)
[2017-02-03] MEDS: CEPHALEXIN MONOHYDRATE 500 MG CAP PO SCH ×2 (08:14→22:50)
[2017-02-03] MEDS: GABAPENTIN 600 MG TAB PO SCH ×3 (08:15→22:51)
[2017-02-03] MEDS: DOCUSATE SODIUM 100 MG CAP PO SCH (08:15)
[2017-02-03] MEDS: AMOXICILLIN 500 MG CAP PO SCH ×2 (08:16→22:41)
[2017-02-03] MEDS: CARBIDOPA/LEVODOPA 25/100MG TAB PO SCH ×3 (08:16→22:52)
[2017-02-03 08:17] LABS: BUN/CREATININE RATIO 6.7 (10-20); CALCIUM 8.8 mg/dl (8.5-10.1); CREATININE 0.96 mg/dl (0.60-1.40); POTASSIUM 3.9 mmol/L (3.5-5.1)
[2017-02-03] MEDS: PANTOprazole INJ 40 MG in SYRINGE 0 ML IV SCH ×2 (08:24→22:41)
[2017-02-03] MEDS: LIDODERM (LIDOCAINE) PATCH 5% TD SCH (08:25)
--- NOTE | 2017-02-03 12:03 | Progress Note ---
Subjective Date of Service: Feb 03, 2017. Subjective Pt evaluation today including: conversation w/ patient, physical exam, chart review, lab review, review of inpatient medication list Problem List Medical Problems: (1) Acute head injury Status: Acute (2) Ambulatory dysfunction Status: Acute (3) Dysphagia Status: Acute (4) Fall Status: Acute (5) Hypoxia Status: Acute (6) Low back pain Status: Acute (7) Mood disorder Status: Acute (8) Mood disorder Status: Acute (9) Narcotic-induced respiratory depression Status: Acute (10) Opiate overdose Status: Acute (11) Overdose of sleeping tabs Status: Acute (12) Suicidal ideation Status: Acute (13) Suicide attempt Status: Acute Review of Systems Constitutional: No see HPI, No fever, No chills, No sweats, No weight loss, No weakness, No fatigue, No problem reported Eyes: No see HPI, No worsening of vision, No eye pain, No redness, No discharge , No diplopia, No problem reported ENT: No see HPI, No hearing loss, No unusual epistaxis, No nasal symptoms, No sore throat, No tinnitus, No dental problems, No trouble swallowing, No problem reported Respiratory: No see HPI, No cough, No sputum, No wheezing, No shortness of breath, No dyspnea on exertion, No dyspnea at rest, No hemoptysis, No problem reported Cardiac: No see HPI, No chest pain, No orthopnea, No PND, No edema, No claudication, No palpitations, No problem reported Abdomen: + pain, No see HPI, No nausea, No vomiting, No diarrhea, No constipation, No GI bleeding, No problem reported Musculoskeletal: + problem reported (pain in feet), No see HPI, No joint pain, No muscle pain, No swelling, No calf pain Male : No see HPI, No dysuria, No urinary frequency, No incontinence, No nocturia more than once/night, No slowing stream, No hematuria, No sexual dysfunction, No problem reported Neurologic: No see HPI, No memory loss, No paralysis, No weakness, No numbness/ tingling, No vertigo, No balance problems, No problem reported Psychiatric: No see HPI, No depression symptoms, No anhedonism, No anxiety, No insomnia, No substance abuse, No problem reported Endo: No see HPI, No fatigue, No excessive thirst, No excessive urination, No problem reported Skin: No see HPI, No rash, No itch, No new/changing skin lesions, No color change, No bleeding, No problem reported Objective Vital Signs Date Time Temp Pulse Resp B/P (MAP) Pulse Ox O2 Delivery O2 Flow Rate FiO2 02/03/17 08:00 92 Room Air 02/03/17 07:09 36.5 65 18 126/81 (96) 92 Room Air 02/03/17 00:00 Room Air 02/02/17 23:35 36.4 66 16 124/72 (89) 98 Room Air 02/02/17 16:14 36.5 62 18 96/61 (73) 93 Room Air 02/02/17 16:00 Room Air Physical Exam General Appearance: WD/WN, no apparent distress Eyes: normal inspection, EOMI ENT: normal ENT inspection, hearing grossly normal Neck: supple Respiratory/Chest: chest non-tender, lungs clear, normal breath sounds, no respiratory distress, no accessory muscle use Cardiovascular: regular rate, rhythm, no edema, no gallop, no JVD, no murmur Abdomen: normal bowel sounds, soft, no organomegaly, no pulsatile mass, + tenderness Extremities: normal range of motion, non-tender, normal inspection 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, no motor/sensory deficits, alert, normal mood/affect, oriented x 3, + depressed affect Skin: normal color, warm/dry, no rash Laboratory Results Last 24 Hours Test 02/02/17 19:40 02/03/17 00:00 02/03/17 07:15 Prothrombin Time 12.4 SECONDS Prothromb Time International Ratio 1.2 Urine Color YELLOW Urine Appearance CLEAR Urine pH 5.0 Urine Specific [place] 1.018 Urine Protein NEG Urine Glucose (UA) NEG Urine Ketones NEG Urine Occult Blood NEG Urine Nitrite NEG Urine Bilirubin NEG Urine Urobilinogen NEG Urine Leukocyte Esterase MODERATE Urine WBC (Auto) >30 /hpf Urine RBC (Auto) 0-4 /hpf Urine Hyaline Casts (Auto) 1-5 /lpf Urine Epithelial Cells (Auto) 5-10 /lpf Urine Bacteria (Auto) 1+ Urine Sperm (Auto) PRESENT White Blood Count 4.70 K/uL Red Blood Count 4.86 M/uL Hemoglobin 14.0 g/dL Hematocrit 42.5 % Mean Corpuscular Volume 87.4 fL Mean Corpuscular Hemoglobin 28.8 pg Mean Corpuscular Hemoglobin Concent 32.9 g/dl Platelet Count 198 K/uL Mean Platelet Volume 8.2 fL Neutrophils (%) (Auto) 63.3 % Lymphocytes (%) (Auto) 24.7 % Monocytes (%) (Auto) 8.9 % Eosinophils (%) (Auto) 2.3 % Basophils (%) (Auto) 0.6 % Neutrophils # (Auto) 2.97 K/uL Lymphocytes # (Auto) 1.16 K/uL Monocytes # (Auto) 0.42 K/uL Eosinophils # (Auto) 0.11 K/uL Basophils # (Auto) 0.03 K/uL RDW Standard Deviation 41.7 fL RDW Coefficient of Variation 13.1 % Immature Granulocyte % (Auto) 0.2 % Immature Granulocyte # (Auto) 0.01 K/uL Sodium Level 144 mmol/L Potassium Level 3.9 mmol/L Chloride Level 112 mmol/L Carbon Dioxide Level 25 mmol/L Anion Gap 7.0 mmol/L Blood Urea Nitrogen 6 mg/dl Creatinine 0.96 mg/dl Est Creatinine Clear Calc Drug Dose 74.1 ml/min Estimated GFR () 91.8 Estimated GFR (Non- 79.2 BUN/Creatinine Ratio 6.7 Random Glucose 95 mg/dl Calcium Level 8.8 mg/dl Magnesium Level 2.0 mg/dl Total Bilirubin 0.6 mg/dl Aspartate Amino Transf (AST/SGOT) 16 U/L Alanine Aminotransferase (ALT/SGPT) 10 U/L Alkaline Phosphatase 90 U/L Total Protein 5.7 gm/dl Albumin 2.8 gm/dl Globulin 2.9 gm/dl Albumin/Globulin Ratio 1.0 Assessment and Plan The patient is a 71-year-old male referred for direct admission from outpatient office due to progressive dysphagia and 21 pound weight loss over the past month. Status post EGD that showed duodenal ulcerations with H. pylori infection Dysphagia/weight loss Status post barium swallow he showed Several episodes of tracheal aspiration with thin liquids by spoon. Status post EGD that showed duodenal ulceration and H. pylori, started H. pylori triple antibiotic therapy by GI, amoxicillin, clarithromycin, PPI GI consult appreciated Speech/swallow eval requested Recommendation attached below * 1. Advance diet as tolerated to pureed (moist) and NECTAR thick liquids. 2. Aspiration precautison, NO straws. Fully upright for meals and for 30 minutes after meals. Stringent oral care to include brushing all surfaces of the mouth prior to and after meals, and before bed. 3. Will need assistance with eating/safe swallow stratgeis. Alternate solids and liquid 1:1, double swallow after each bite/sip. 4. Speech will follow for tolerance. Lower abd quadrant pain appears mild heating pad and stool softener Depression/history of suicide ideation Consult psychiatrist UTI-- Call from GRACIELA from [facility] staph epidermidis infection will repeat UA, showed WBC will retrieve culture result from [facility] Hypertension-- Continue amlodipine,losartan and metoprolol succinate Parkinson's-- Continue carbidopa/levodopa Hyperlipidemia-- Continue atorvastatin. Hypothyroidism-- Continue levothyroxine Restless leg syndrome-- Continue ropinirole Bipolar disorder-- Continue risperidone, buspirone, trazodone and lamotrigine. Continue lorazepam and melatonin. DV prophylaxis with heparin
[2017-02-03] MEDS ORDERED: DOCUSATE SODIUM/SENNA 50/8.6MG TAB PO ONE (12:30)
[2017-02-03] MEDS ORDERED: POLYETHYLENE (MIRALAX) 17 GM PACK PO ONE (12:30)
[2017-02-03 14:43] VITALS: BP 104/66; PULSE 59; TEMP 36.4; O2SAT 91
[2017-02-03 16:00] VITALS: O2SAT 91
[2017-02-03] MEDS: DICLOFENAC SOD 1% GEL 100 GM TUBE EXT SCH (22:40)
[2017-02-03] MEDS: ROPINIROLE HCL 1 MG TAB PO SCH (22:43)
[2017-02-03] MEDS: ATORVASTATIN 40 MG TAB PO SCH (22:43)
[2017-02-03] MEDS: TRAZODONE HCL 100 MG TAB PO SCH (22:49)
[2017-02-03 23:17] VITALS: BP 133/82; PULSE 65; TEMP 36.9; O2SAT 91
[2017-02-04] MEDS: HEPARIN SOD 5000 UNIT/0.5 ML CARP SQ SCH ×3 (06:12→21:02)
[2017-02-04] MEDS: LEVOTHYROXINE 50 MCG TAB PO SCH (06:16)
[2017-02-04 07:00] LABS: BASO ABS # 0.04 K/uL (0-0.2); COMPLETE YES; EOS % 3.5 %; HEMATOCRIT 44.2 % (42-52); IG% 0.3 %; LYMPH % 36.2 %; LYMPH ABS # 1.44 K/uL (1.2-3.4); MEAN CELL VOLUME 86.7 fL (80-100); MEAN CORPUSCULAR HEMOGLOBIN 27.8 pg (25-34); MEAN CORPUSCULAR HGB CONC 32.1 g/dl (32-36); MEAN PLATELET VOLUME 8.3 fL (7.4-10.4); MONO % 9.8 %; NEUT % 49.2 %; PLATELET COUNT 213 K/uL (130-400); WHITE BLOOD COUNT 3.98 K/uL (4.8-10.8)
[2017-02-04 07:29] LABS: BUN/CREATININE RATIO 5.6 (10-20); CALCIUM 9.1 mg/dl (8.5-10.1); CREATININE 1.1 mg/dl (0.60-1.40); POTASSIUM 3.9 mmol/L (3.5-5.1)
[2017-02-04 07:51] VITALS: BP 117/73; PULSE 56; TEMP 36.6; O2SAT 94
[2017-02-04] MEDS: METOPROLOL SUCC 50MG EXT REL TAB PO SCH (07:52)
[2017-02-04] MEDS: AMLODIPINE BESYLATE 5 MG TAB PO SCH (07:52)
[2017-02-04] MEDS: CEPHALEXIN MONOHYDRATE 500 MG CAP PO SCH (07:53)
[2017-02-04] MEDS: RISPERIDONE 2 MG TAB PO SCH (07:53)
[2017-02-04] MEDS: CARBIDOPA/LEVODOPA 25/100MG TAB PO SCH ×3 (07:53→20:54)
[2017-02-04] MEDS: GABAPENTIN 600 MG TAB PO SCH ×3 (07:54→20:53)
[2017-02-04] MEDS: CLARITHROMYCIN 500 MG TAB PO SCH ×2 (07:54→20:52)
[2017-02-04] MEDS: AMOXICILLIN 500 MG CAP PO SCH ×2 (07:54→20:52)
[2017-02-04] MEDS: LOSARTAN POTASSIUM 50 MG TAB PO SCH (07:55)
[2017-02-04] MEDS: BusPIRone 15 MG TAB PO SCH ×3 (07:55→20:52)
[2017-02-04] MEDS: MULTIVITAMIN TAB PO SCH (07:55)
[2017-02-04] MEDS: LIDODERM (LIDOCAINE) PATCH 5% TD SCH (07:56)
[2017-02-04] MEDS: NSS + 20MEQ KCL 1000ML 1,000 ML IV SCH ×2 (07:58→18:32)
[2017-02-04 08:00] VITALS: O2SAT 94
[2017-02-04] MEDS: PANTOprazole INJ 40 MG in SYRINGE 0 ML IV SCH ×2 (08:09→20:46)
[2017-02-04] MEDS: DICLOFENAC SOD 1% GEL 100 GM TUBE EXT SCH ×2 (08:14→20:46)
[2017-02-04 15:41] VITALS: BP 101/67; PULSE 66; TEMP 36.8; O2SAT 94
[2017-02-04 16:00] VITALS: O2SAT 94
--- NOTE | 2017-02-04 16:47 | Psychiatric Consultation ---
Psychiatric Consultation Date of Service: Feb 04, 2017. Jeff Stiles is a 71-year-old male who currently lives in [place] with his . He has a history of bipolar depression and anxiety and remains in treatment with Dr. Alvares at [facility]. He has presented to the ED multiple times in the past months for dysphagia and weight loss. He was last seen on consult service in October. Consult is for depression. Chief Complaint assess psychiatric stability for placement, ongoing medication management History of Present Illness The patient was last hospitalized at [facility] in November 2015 for a suicide attempt by overdose on Ambien and [place] in the context of severe stress at home , as his adult daughter is a heroin addict and had been staying with them, causing a lot of tension in the home. At that time he was started on BuSpar, but then stopped it as he didn't feel it was effective, and lurasidone and gabapentin were increased. He was referred for multiple outpatient supports, including [facility], therapist, a blended telephonic case manager , and an office of aging referral. He was discharged home to follow up with his outpatient providers. Since then, he's continued to see Dr. Alvares, whom he last saw 01/16/2017, at which time he reported mood was 2/10 due to health issues but denied SI. He has baseline Parkinson's dementia so periods of confusion and bradykinesia are not unusual. In the hospital he has been receiving higher than prescribed dose of Risperdal (home dose 3 mg, confirmed with Dr. Alvares's clinic notes) which could explain some of the flatness noted on exam. Past Psychiatric History Current OP Treatment: psychiatrist (Dr. Alvares at [facility]) Prior Psych Hospitalizations: [facility] (November 2015), other (at least 2 admissions to [facility] in 2016) Access to a Gun: No Suicide Attempts: Yes (overdose in November 2015) Past Medication Trials Quetiapine, duloxetine, sertraline, paliperidone, lurasidone, aripiprazole, olanzapine, Remeron Additional Notes He was referred for therapy at [facility], blended case management through [facility], and [facility] med management on discharge from our behavioral health unit last November. Allergies Allergies: Coded Allergies: Pregabalin (Unverified Allergy, Severe, SUICIDAL, 10/03/16) Celecoxib (Verified Allergy, Unknown, RASH, 10/03/16) Ibuprofen (Verified Allergy, Unknown, RASH, 10/03/16) Quetiapine (Unverified Allergy, Unknown, UNKNOWN, 10/03/16) Home Medications Reported Home Medications Medications Dose Route/Sig Max Daily Dose Days Date Category Dose Instructions Trazodone HCl 150 Mg Tab 1 Tab PO DAILY 01/16/17 Reported Gabapentin 300 Mg Cap 600 Mg PO TID 01/16/17 Reported Sinemet 25MG/100MG (Carbidopa/Levodopa) Tab 1 Tab PO TID 01/16/17 Reported Amlodipine Besylate 10 Mg Tab 1 Tab PO DAILY 01/16/17 Reported Cozaar (Losartan Potassium) 100 Mg Tab 1 Tab PO DAILY 01/16/17 Reported Miralax (Polyethylene) 17 Gm Pow 17 Gm PO DAILY PRN 30 10/13/16 Rx Docusate Sodium 100 Mg Cap 100 Mg PO BID 30 10/13/16 Rx Lidocaine 1 Patch Tdsy 1 Patch TD QAM 14 10/13/16 Rx Tylenol (Acetaminophen) 325 Mg Tab 650 Mg PO Q4H PRN 10/13/16 Rx Percocet 5MG/325MG (Oxycodone/Acetaminophen) Tab 1 Tab PO Q12 PRN 10/13/16 Rx PAIN Lorazepam 0.5 Mg Tab 0.5 Mg PO Q8 PRN 10/13/16 Rx Risperdal (Risperidone) 2 Mg Tab 4 Mg PO QPM 10/03/16 Reported Risperdal (Risperidone) 2 Mg Tab 2 Mg PO QAM 10/03/16 Reported Buspirone HCl 15 Mg Tab 15 Mg PO TID 10/03/16 Reported Requip (Ropinirole HCl) 2 Mg Tab 2 Mg PO HS 10/03/16 Reported Melatonin 3 Mg Cap 3 Mg PO HS 10/03/16 Reported Toprol-Xl (Metoprolol Succinate) 200 Mg Tabcr 200 Mg PO DAILY 10/03/16 Reported Lamictal (Lamotrigine) 200 Mg Tab 200 Mg PO BID 10/03/16 Reported Synthroid (Levothyroxine Sodium) 50 Mcg Tab 50 Mcg PO QAM 02/16/15 Reported Multivitamin (Multivitamins) Tab 1 Tab PO QAM 06/02/09 Reported Lipitor (Atorvastatin Calcium) 40 Mg Tab 40 Mg PO QPM 06/02/09 Reported Family History Patient reports no known family medical history. 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 Examination Vital Signs Vital Signs Past 12 Hours Date Time Temp Pulse Resp B/P (MAP) Pulse Ox O2 Delivery O2 Flow Rate FiO2 02/04/17 15:41 36.8 66 18 101/67 (78) 94 Room Air 02/04/17 08:00 94 Room Air 02/04/17 07:51 36.6 56 18 117/73 (88) 94 Room Air Laboratory Results Last 24 Hours Test 02/04/17 06:40 White Blood Count 3.98 K/uL Red Blood Count 5.10 M/uL Hemoglobin 14.2 g/dL Hematocrit 44.2 % Mean Corpuscular Volume 86.7 fL Mean Corpuscular Hemoglobin 27.8 pg Mean Corpuscular Hemoglobin Concent 32.1 g/dl Platelet Count 213 K/uL Mean Platelet Volume 8.3 fL Neutrophils (%) (Auto) 49.2 % Lymphocytes (%) (Auto) 36.2 % Monocytes (%) (Auto) 9.8 % Eosinophils (%) (Auto) 3.5 % Basophils (%) (Auto) 1.0 % Neutrophils # (Auto) 1.96 K/uL Lymphocytes # (Auto) 1.44 K/uL Monocytes # (Auto) 0.39 K/uL Eosinophils # (Auto) 0.14 K/uL Basophils # (Auto) 0.04 K/uL RDW Standard Deviation 41.3 fL RDW Coefficient of Variation 12.9 % Immature Granulocyte % (Auto) 0.3 % Immature Granulocyte # (Auto) 0.01 K/uL Sodium Level 144 mmol/L Potassium Level 3.9 mmol/L Chloride Level 110 mmol/L Carbon Dioxide Level 28 mmol/L Anion Gap 6.0 mmol/L Blood Urea Nitrogen 6 mg/dl Creatinine 1.10 mg/dl Est Creatinine Clear Calc Drug Dose 64.7 ml/min Estimated GFR () 77.9 Estimated GFR (Non- 67.2 BUN/Creatinine Ratio 5.6 Random Glucose 92 mg/dl Calcium Level 9.1 mg/dl Magnesium Level 2.0 mg/dl Mental Examination During interview pt is: alert, cooperative Appearance: appropriately groomed, appeared stated age Eye contact is: varied Motor behavior is: psychomotor retardation Speech: other (minimal, delayed, slow) Affect: constricted Mood is: depressed Thought process: blocking Thought content: reality based without delusions Suicidal thought are: denied, has had passive thoughts intermittently at baseline without intent or plan Homicidal thoughts are: denied Hallucinations: denies auditory, denies visual Cognition: other (all spheres impaired) Insight: limited Judgement: limited Impression / Recommendations Impression 70-year-old white male with a history of bipolar disorder and generalized anxiety disorder who is admitted for dysphagia and weight loss. Rehab is being pursued. He has been receiving higher than prescribed doses of Risperdal (old dose) that previously resulted in worsening of underlying bradykinesia and may have contributed to falls. Risk Factors Assessment Access to guns: No Recommendations (1) Bipolar II disorder no acute indication for inpatient psychiatric hospitalization and should be considered psychiatrically stable for discharge to appropriate nursing care/ rehab. Will only give 1 mg Risperdal this hs and convert to 3 mg po qhs starting tomorrow. Can be given as M-tab if difficulty swallowing. may make sense to d/c trazodone in favor of Remeron zhang tab (pharmacy would need to order ), will discuss later with Dr. Alvares as would be a retrial. (2) Generalized anxiety disorder Continue home dose of buspirone.
--- NOTE | 2017-02-04 18:11 | Progress Note ---
Subjective Date of Service: Feb 04, 2017. Subjective Pt evaluation today including: conversation w/ patient, physical exam, chart review, lab review, review of inpatient medication list Problem List Medical Problems: (1) Acute head injury Status: Acute (2) Ambulatory dysfunction Status: Acute (3) Dysphagia Status: Acute (4) Fall Status: Acute (5) Hypoxia Status: Acute (6) Low back pain Status: Acute (7) Mood disorder Status: Acute (8) Mood disorder Status: Acute (9) Narcotic-induced respiratory depression Status: Acute (10) Opiate overdose Status: Acute (11) Overdose of sleeping tabs Status: Acute (12) Suicidal ideation Status: Acute (13) Suicide attempt Status: Acute Review of Systems Constitutional: No see HPI, No fever, No chills, No sweats, No weight loss, No weakness, No fatigue, No problem reported Eyes: No see HPI, No worsening of vision, No eye pain, No redness, No discharge , No diplopia, No problem reported ENT: No see HPI, No hearing loss, No unusual epistaxis, No nasal symptoms, No sore throat, No tinnitus, No dental problems, No trouble swallowing, No problem reported Respiratory: No see HPI, No cough, No sputum, No wheezing, No shortness of breath, No dyspnea on exertion, No dyspnea at rest, No hemoptysis, No problem reported Cardiac: No see HPI, No chest pain, No orthopnea, No PND, No edema, No claudication, No palpitations, No problem reported Abdomen: No see HPI, No pain, No nausea, No vomiting, No diarrhea, No constipation, No GI bleeding, No problem reported Musculoskeletal: + joint pain, + problem reported (feet pain), No see HPI, No muscle pain, No swelling, No calf pain Male : No see HPI, No dysuria, No urinary frequency, No incontinence, No nocturia more than once/night, No slowing stream, No hematuria, No sexual dysfunction, No problem reported Neurologic: No see HPI, No memory loss, No paralysis, No weakness, No numbness/ tingling, No vertigo, No balance problems, No problem reported Psychiatric: No see HPI, No depression symptoms, No anhedonism, No anxiety, No insomnia, No substance abuse, No problem reported Heme: No see HPI, No abnormal bleeding/bruising, No clotting problems, No swollen lymph nodes, No night sweats, No problem reported Endo: No see HPI, No fatigue, No excessive thirst, No excessive urination, No problem reported Skin: No see HPI, No rash, No itch, No new/changing skin lesions, No color change, No bleeding, No problem reported Objective Vital Signs Date Time Temp Pulse Resp B/P (MAP) Pulse Ox O2 Delivery O2 Flow Rate FiO2 02/04/17 15:41 36.8 66 18 101/67 (78) 94 Room Air 02/04/17 08:00 94 Room Air 02/04/17 07:51 36.6 56 18 117/73 (88) 94 Room Air 02/04/17 00:00 Room Air 02/03/17 23:17 36.9 65 20 133/82 (99) 91 Room Air Physical Exam General Appearance: WD/WN, no apparent distress Eyes: normal inspection, EOMI ENT: normal ENT inspection, hearing grossly normal Neck: supple Respiratory/Chest: chest non-tender, lungs clear, normal breath sounds, no respiratory distress, no accessory muscle use Cardiovascular: regular rate, rhythm, no edema, no gallop, no JVD, no murmur Abdomen: normal bowel sounds, non tender, soft, no organomegaly Extremities: normal range of motion, non-tender, normal inspection, no pedal edema, no calf tenderness 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, no motor/sensory deficits, alert, oriented x 3, + depressed affect Skin: normal color, warm/dry, no rash Laboratory Results Last 24 Hours Test 02/04/17 06:40 White Blood Count 3.98 K/uL Red Blood Count 5.10 M/uL Hemoglobin 14.2 g/dL Hematocrit 44.2 % Mean Corpuscular Volume 86.7 fL Mean Corpuscular Hemoglobin 27.8 pg Mean Corpuscular Hemoglobin Concent 32.1 g/dl Platelet Count 213 K/uL Mean Platelet Volume 8.3 fL Neutrophils (%) (Auto) 49.2 % Lymphocytes (%) (Auto) 36.2 % Monocytes (%) (Auto) 9.8 % Eosinophils (%) (Auto) 3.5 % Basophils (%) (Auto) 1.0 % Neutrophils # (Auto) 1.96 K/uL Lymphocytes # (Auto) 1.44 K/uL Monocytes # (Auto) 0.39 K/uL Eosinophils # (Auto) 0.14 K/uL Basophils # (Auto) 0.04 K/uL RDW Standard Deviation 41.3 fL RDW Coefficient of Variation 12.9 % Immature Granulocyte % (Auto) 0.3 % Immature Granulocyte # (Auto) 0.01 K/uL Sodium Level 144 mmol/L Potassium Level 3.9 mmol/L Chloride Level 110 mmol/L Carbon Dioxide Level 28 mmol/L Anion Gap 6.0 mmol/L Blood Urea Nitrogen 6 mg/dl Creatinine 1.10 mg/dl Est Creatinine Clear Calc Drug Dose 64.7 ml/min Estimated GFR () 77.9 Estimated GFR (Non- 67.2 BUN/Creatinine Ratio 5.6 Random Glucose 92 mg/dl Calcium Level 9.1 mg/dl Magnesium Level 2.0 mg/dl Assessment and Plan The patient is a 71-year-old male referred for direct admission from outpatient office due to progressive dysphagia and 21 pound weight loss over the past month. Status post EGD that showed duodenal ulcerations with H. pylori infection Dysphagia/weight loss Status post barium swallow he showed Several episodes of tracheal aspiration with thin liquids by spoon. Status post EGD that showed duodenal ulceration and H. pylori, started H. pylori triple antibiotic therapy by GI, amoxicillin, clarithromycin, PPI GI consult appreciated Speech/swallow eval requested/ currently on thickened liquid Recommendation attached below * 1. Advance diet as tolerated to pureed (moist) and NECTAR thick liquids. 2. Aspiration precautison, NO straws. Fully upright for meals and for 30 minutes after meals. Stringent oral care to include brushing all surfaces of the mouth prior to and after meals, and before bed. 3. Will need assistance with eating/safe swallow stratgeis. Alternate solids and liquid 1:1, double swallow after each bite/sip. 4. Speech will follow for tolerance. Lower abd quadrant pain, improved appears mild heating pad and stool softener Depression/history of suicide ideation Consult psychiatrist UTI-- Call from GRACIELA from [facility] staph epidermidis infection will repeat UA, showed WBC will retrieve culture result from [facility] Also antibiotics for H. pylori we'll treat his UTI Hypertension-- Continue amlodipine,losartan and metoprolol succinate Parkinson's-- Continue carbidopa/levodopa Hyperlipidemia-- Continue atorvastatin. Hypothyroidism-- Continue levothyroxine Restless leg syndrome-- Continue ropinirole Bipolar disorder-- Continue buspirone, trazodone and lamotrigine. Continue lorazepam and melatonin. Consulted psychiatrist appreciated, restarted risperidone Recommended to consider stopping trazodone, will see how he is doing first We'll check TSH with morning labs DV prophylaxis with heparin
[2017-02-04 20:24] LABS: URINE APPEARANCE CLEAR (CLEAR); URINE BILIRUBIN NEG (NEG); URINE COLOR YELLOW; URINE EPITHELIAL CELL AUTO 0-5 /lpf (0-5); URINE NITRITE NEG (NEG); UROBILINOGEN NEG (NEG); ZZUR CULT IF INDIC CLEAN CATCH NO
[2017-02-04 20:28] LABS: MANUAL MICROSCOPIC REQUIRED? NO; REVIEW REQ? NO
[2017-02-04] MEDS: ATORVASTATIN 40 MG TAB PO SCH (20:53)
[2017-02-04] MEDS: TRAZODONE HCL 100 MG TAB PO SCH (20:53)
[2017-02-04] MEDS: ROPINIROLE HCL 1 MG TAB PO SCH (20:53)
[2017-02-04] MEDS ORDERED: RISPERIDONE 1 MG TAB PO ONE (21:00)
[2017-02-04 23:40] VITALS: BP 114/77; PULSE 60; TEMP 36.8; O2SAT 92
[2017-02-05] MEDS: NSS + 20MEQ KCL 1000ML 1,000 ML IV SCH ×2 (04:36→15:35)
[2017-02-05] MEDS: HEPARIN SOD 5000 UNIT/0.5 ML CARP SQ SCH ×3 (06:24→21:14)
[2017-02-05] MEDS: LEVOTHYROXINE 50 MCG TAB PO SCH (06:26)
[2017-02-05 07:17] VITALS: BP 113/69; PULSE 50; TEMP 36.5; O2SAT 93
[2017-02-05 07:29] LABS: HEMATOCRIT 41.2 % (42-52); MEAN CELL VOLUME 87.3 fL (80-100); MEAN CORPUSCULAR HEMOGLOBIN 28.2 pg (25-34); MEAN CORPUSCULAR HGB CONC 32.3 g/dl (32-36); MEAN PLATELET VOLUME 8.5 fL (7.4-10.4); PLATELET COUNT 212 K/uL (130-400); RED BLOOD COUNT 4.72 M/uL (4.7-6.1); WHITE BLOOD COUNT 4.76 K/uL (4.8-10.8)
[2017-02-05] MEDS: GABAPENTIN 600 MG TAB PO SCH ×3 (07:42→21:14)
[2017-02-05] MEDS: BusPIRone 15 MG TAB PO SCH ×3 (07:42→21:14)
[2017-02-05] MEDS: DICLOFENAC SOD 1% GEL 100 GM TUBE EXT SCH ×2 (07:42→21:13)
[2017-02-05] MEDS: LOSARTAN POTASSIUM 50 MG TAB PO SCH (07:43)
[2017-02-05] MEDS: METOPROLOL SUCC 50MG EXT REL TAB PO SCH (07:43)
[2017-02-05] MEDS: MULTIVITAMIN TAB PO SCH (07:43)
[2017-02-05] MEDS: AMLODIPINE BESYLATE 5 MG TAB PO SCH (07:43)
[2017-02-05] MEDS: AMOXICILLIN 500 MG CAP PO SCH ×2 (07:44→21:14)
[2017-02-05] MEDS: CLARITHROMYCIN 500 MG TAB PO SCH ×2 (07:44→21:14)
[2017-02-05] MEDS: CARBIDOPA/LEVODOPA 25/100MG TAB PO SCH ×3 (07:44→21:14)
[2017-02-05] MEDS: PANTOprazole INJ 40 MG in SYRINGE 0 ML IV SCH ×2 (07:44→21:13)
[2017-02-05] MEDS: LIDODERM (LIDOCAINE) PATCH 5% TD SCH (07:45)
[2017-02-05 08:01] LABS: CALCIUM 8.7 mg/dl (8.5-10.1); CREATININE 1.1 mg/dl (0.60-1.40)
[2017-02-05 08:11] LABS: THYROID STIMULATING HORMONE 1.63 uIu/ml (0.300-4.500)
[2017-02-05 15:44] VITALS: BP 108/68; PULSE 50; TEMP 36.5; O2SAT 96
--- NOTE | 2017-02-05 16:02 | Progress Note ---
Subjective Date of Service: Feb 05, 2017. Subjective Pt evaluation today including: conversation w/ patient, physical exam, review of inpatient medication list Pain: denies pain PO Intake: improving slowly Voiding: no voiding problems patient's mood is improving, slept better last night eating slowly improving says he feels very weak and off balance Problem List Medical Problems: (1) Acute head injury Status: Acute (2) Ambulatory dysfunction Status: Acute (3) Dysphagia Status: Acute (4) Fall Status: Acute (5) Hypoxia Status: Acute (6) Low back pain Status: Acute (7) Mood disorder Status: Acute (8) Mood disorder Status: Acute (9) Narcotic-induced respiratory depression Status: Acute (10) Opiate overdose Status: Acute (11) Overdose of sleeping tabs Status: Acute (12) Suicidal ideation Status: Acute (13) Suicide attempt Status: Acute Review of Systems Constitutional: + weakness, + fatigue Abdomen: + problem reported (dysphagia, poor appetite) Psychiatric: + depression symptoms All Other Systems: Reviewed and Negative Medications Current Inpatient Medications Medications (Trade) Dose Ordered Sig/[place] Route Start Time Stop Time Status Last Admin Dose Admin Acetaminophen (Tylenol Tab) 650 mg Q4H PRN PO 01/30/17 18:30 03/01/17 18:29 Atorvastatin Calcium (Lipitor Tab) 40 mg QPM PO 01/30/17 21:00 03/01/17 20:59 02/04/17 20:53 40 MG Buspirone HCl (BusPAR TAB) 15 mg TID PO 01/30/17 21:00 03/01/17 20:59 02/05/17 14:11 15 MG Carbidopa/Levodopa (Sinemet 25/ 100MG Tab) 1 tab TID PO 01/30/17 21:00 03/01/17 20:59 02/05/17 14:11 1 TAB Gabapentin (Neurontin Tab) 600 mg TID PO 01/30/17 21:00 03/01/17 20:59 02/05/17 14:11 600 MG Lamotrigine (Lamictal Tab) 200 mg BID PO 01/30/17 21:00 03/01/17 20:59 02/05/17 07:44 200 MG Levothyroxine Sodium (Synthroid Tab) 50 mcg DAILYBB PO 01/31/17 06:30 03/02/17 06:29 02/05/17 06:26 50 MCG Lidocaine (Lidoderm Patch 5%) 1 patch QAM TD 01/31/17 09:00 03/02/17 08:59 01/31/17 09:32 1 PATCH Lorazepam (Ativan Tab) 0.5 mg Q8 PRN PO 01/30/17 18:30 03/01/17 18:29 02/01/17 08:48 0.5 MG Losartan Potassium (coZAAR TAB) 100 mg DAILY PO 01/31/17 09:00 03/02/17 08:59 02/05/17 07:43 100 MG Metoprolol Succinate (Toprol Xl Tab) 200 mg DAILY PO 01/31/17 09:00 03/02/17 08:59 02/04/17 07:52 200 MG Multivitamins (Multivitamin Tab) 1 tab QAM PO 01/31/17 09:00 03/02/17 08:59 02/05/17 07:43 1 TAB Polyethylene (Miralax Powder Packet) 17 gm DAILY PRN PO 01/30/17 18:30 03/01/17 18:29 Ropinirole HCl (Requip Tab) 2 mg HS PO 01/30/17 21:00 03/01/17 20:59 02/04/17 20:53 2 MG Amlodipine Besylate (Norvasc Tab) 10 mg QAM PO 01/31/17 09:00 03/02/17 08:59 02/05/17 07:43 10 MG Trazodone HCl (Desyrel Tab) 150 mg HS PO 01/30/17 21:00 03/01/17 20:59 02/04/17 20:53 150 MG Miscellaneous (Remove Lidoderm Patch) 1 ea DAILY@21 N/A 01/30/17 21:00 03/01/17 20:59 02/01/17 20:28 1 EA Potassium Chloride/Sodium Chloride 1,000 ml @ 100 mls/hr Q10H IV 01/30/17 19:00 03/01/17 18:34 02/05/17 15:35 100 MLS/HR Morphine Sulfate (MoRPHine SULFATE INJ) 2 mg ONE PRN IV 01/30/17 20:45 02/13/17 20:44 01/30/17 21:03 2 MG Pantoprazole Sodium 40 mg/ Syringe 10 ml @ 5 mls/min BID@0900,2100 IV 01/31/17 21:00 03/02/17 20:59 02/05/17 07:44 5 MLS/MIN Amoxicillin (Amoxil Cap) 1,000 mg BID PO 02/02/17 09:00 02/12/17 08:59 02/05/17 07:44 1,000 MG Clarithromycin (Biaxin Tab) 500 mg Q12 PO 02/02/17 09:00 02/12/17 08:59 02/05/17 07:44 500 MG Heparin Sodium (Porcine) (Heparin Sq 5000 Unit/0.5ml) 5,000 unit Q8 SQ 02/02/17 22:00 03/04/17 21:59 02/05/17 14:13 5,000 UNIT Diclofenac Sodium (Voltaren 1% Top Gel) 1 appln BID EXT 02/03/17 21:00 02/06/17 20:00 02/05/17 07:42 1 APPLN Risperidone (Risperdal Tab) 3 mg PM PO 02/05/17 21:00 03/07/17 20:59 Objective Vital Signs Date Time Temp Pulse Resp B/P (MAP) Pulse Ox O2 Delivery O2 Flow Rate FiO2 02/05/17 15:44 36.5 50 18 108/68 (81) 96 Room Air 02/05/17 08:00 Room Air 02/05/17 07:17 36.5 50 16 113/69 (84) 93 Room Air 02/05/17 00:00 Room Air 02/04/17 23:40 36.8 60 20 114/77 (89) 92 Room Air 02/04/17 20:00 Room Air 02/04/17 16:00 94 Room Air Physical Exam General Appearance: WD/WN, no apparent distress Eyes: normal inspection, EOMI, sclerae normal ENT: normal ENT inspection, hearing grossly normal, pharynx normal Neck: supple, no adenopathy, no JVD, trachea midline Respiratory/Chest: chest non-tender, lungs clear, normal breath sounds, no respiratory distress, no accessory muscle use Cardiovascular: regular rate, rhythm, no edema, no gallop, no JVD, no murmur Abdomen: normal bowel sounds, non tender, soft, no organomegaly Extremities: normal range of motion, non-tender, normal inspection, no pedal edema, no calf tenderness, pelvis stable 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, no motor/sensory deficits, alert, oriented x 3, + depressed affect Skin: normal color, warm/dry, no rash Lymphatic: no adenopathy Laboratory Results Last 24 Hours Test 02/04/17 20:00 02/05/17 06:28 Urine Color YELLOW Urine Appearance CLEAR Urine pH 6.0 Urine Specific [place] 1.010 Urine Protein NEG Urine Glucose (UA) NEG Urine Ketones NEG Urine Occult Blood NEG Urine Nitrite NEG Urine Bilirubin NEG Urine Urobilinogen NEG Urine Leukocyte Esterase TRACE Urine WBC (Auto) 1-5 /hpf Urine RBC (Auto) 0-4 /hpf Urine Hyaline Casts (Auto) 0 /lpf Urine Epithelial Cells (Auto) 0-5 /lpf Urine Bacteria (Auto) NEG White Blood Count 4.76 K/uL Red Blood Count 4.72 M/uL Hemoglobin 13.3 g/dL Hematocrit 41.2 % Mean Corpuscular Volume 87.3 fL Mean Corpuscular Hemoglobin 28.2 pg Mean Corpuscular Hemoglobin Concent 32.3 g/dl RDW Standard Deviation 42.0 fL RDW Coefficient of Variation 13.1 % Platelet Count 212 K/uL Mean Platelet Volume 8.5 fL Sodium Level 144 mmol/L Potassium Level 4.0 mmol/L Chloride Level 110 mmol/L Carbon Dioxide Level 29 mmol/L Anion Gap 5.0 mmol/L Blood Urea Nitrogen 9 mg/dl Creatinine 1.10 mg/dl Est Creatinine Clear Calc Drug Dose 64.7 ml/min Estimated GFR () 77.9 Estimated GFR (Non- 67.2 BUN/Creatinine Ratio 8.0 Random Glucose 87 mg/dl Calcium Level 8.7 mg/dl Magnesium Level 2.0 mg/dl Total Bilirubin 0.5 mg/dl Aspartate Amino Transf (AST/SGOT) 12 U/L Alanine Aminotransferase (ALT/SGPT) 9 U/L Alkaline Phosphatase 83 U/L Total Protein 5.6 gm/dl Albumin 2.8 gm/dl Globulin 2.8 gm/dl Albumin/Globulin Ratio 1.0 Thyroid Stimulating Hormone (TSH) 1.630 uIu/ml Assessment and Plan The patient is a 71-year-old male referred for direct admission from outpatient office due to progressive dysphagia and 21 pound weight loss over the past month. Status post EGD that showed duodenal ulcerations with H. pylori infection Dysphagia/weight loss Status post barium swallow he showed Several episodes of tracheal aspiration with thin liquids by spoon. Status post EGD that showed duodenal ulceration and H. pylori, started H. pylori triple antibiotic therapy by GI, amoxicillin, clarithromycin, PPI GI consult appreciated Speech/swallow eval requested/ currently on thickened liquid Recommendation attached below 1. Advance diet as tolerated to pureed (moist) and NECTAR thick liquids. 2. Aspiration precautison, NO straws. Fully upright for meals and for 30 minutes after meals. Stringent oral care to include brushing all surfaces of the mouth prior to and after meals, and before bed. 3. Will need assistance with eating/safe swallow stratgeis. Alternate solids and liquid 1:1, double swallow after each bite/sip. 4. Speech will follow for tolerance. Lower abd quadrant pain, improved appears mild heating pad and stool softener Bipolar II disorder and general anxiety d/o appreciate psychiatry recommendations has a h/o suicide attempt by overdose and h/o inpatient psychiatry admissions continue BuSpar for anxiety continue Risperdal 3mg HS for mood stabilization may try Remeron instead of Trazodone for sleep aide in near future as outpatient UTI-- staph epidermis, covered by abx for H pylori Hypertension-- Continue amlodipine,losartan and metoprolol succinate Parkinson's-- Continue carbidopa/levodopa Hyperlipidemia-- Continue atorvastatin. Hypothyroidism-- Continue levothyroxine Restless leg syndrome-- Continue ropinirole DVT prophylaxis with heparin plan: continue to monitor, d/w CM tomorrow about SNF or rehab placement
[2017-02-05] MEDS: TRAZODONE HCL 100 MG TAB PO SCH (21:13)
[2017-02-05] MEDS: ATORVASTATIN 40 MG TAB PO SCH (21:14)
[2017-02-05] MEDS: ROPINIROLE HCL 1 MG TAB PO SCH (21:14)
[2017-02-05] MEDS: RISPERIDONE 3 MG TAB PO SCH (21:14)
[2017-02-06 00:17] VITALS: BP 112/68; PULSE 56; TEMP 36.6; O2SAT 96
[2017-02-06] MEDS: NSS + 20MEQ KCL 1000ML 1,000 ML IV SCH ×2 (00:51→12:00)
[2017-02-06] MEDS: HEPARIN SOD 5000 UNIT/0.5 ML CARP SQ SCH ×3 (05:24→21:59)
[2017-02-06] MEDS: LEVOTHYROXINE 50 MCG TAB PO SCH (06:06)
[2017-02-06 06:42] LABS: BUN/CREATININE RATIO 7.9 (10-20); CALCIUM 8.7 mg/dl (8.5-10.1); CREATININE 1.2 mg/dl (0.60-1.40); POTASSIUM 4.1 mmol/L (3.5-5.1)
[2017-02-06 07:09] VITALS: BP 111/73; PULSE 55; TEMP 36.3; O2SAT 92
[2017-02-06 08:00] VITALS: O2SAT 92
[2017-02-06] MEDS: MULTIVITAMIN TAB PO SCH (08:24)
[2017-02-06] MEDS: DICLOFENAC SOD 1% GEL 100 GM TUBE EXT SCH (08:24)
[2017-02-06] MEDS: BusPIRone 15 MG TAB PO SCH ×3 (08:24→21:54)
[2017-02-06] MEDS: GABAPENTIN 600 MG TAB PO SCH ×3 (08:25→22:00)
[2017-02-06] MEDS: CARBIDOPA/LEVODOPA 25/100MG TAB PO SCH ×3 (08:25→21:54)
[2017-02-06] MEDS: AMOXICILLIN 500 MG CAP PO SCH ×2 (08:25→21:54)
[2017-02-06] MEDS: CLARITHROMYCIN 500 MG TAB PO SCH ×2 (08:26→21:54)
[2017-02-06] MEDS: LOSARTAN POTASSIUM 50 MG TAB PO SCH (08:26)
[2017-02-06] MEDS: AMLODIPINE BESYLATE 5 MG TAB PO SCH (08:27)
[2017-02-06] MEDS: METOPROLOL SUCC 50MG EXT REL TAB PO SCH (08:27)
[2017-02-06] MEDS: LIDODERM (LIDOCAINE) PATCH 5% TD SCH (08:30)
[2017-02-06] MEDS: PANTOprazole INJ 40 MG in SYRINGE 0 ML IV SCH (08:30)
--- NOTE | 2017-02-06 12:04 | Hospitalist Progress Note ---
Hospitalist Progress Note Date of Service Feb 06, 2017. Subjective Pt evaluation today including: conversation w/ patient, chart review, lab review, review of studies, review of inpatient medication list Attempted to visit with patient today. Upon entering room patient was asleep and lights out. Opened eyes to his name but was agitated. Unable to examine or perform ROS. Stated "why do people always have to check on me, I am obviously alive". Would just close eyes and didn't answer many other questions. Additional Comments: Deferred due to lack of cooperation Medications Current Inpatient Medications Medications (Trade) Dose Ordered Sig/Catarina Route Start Time Stop Time Status Last Admin Dose Admin Acetaminophen (Tylenol Tab) 650 mg Q4H PRN PO 01/30/17 18:30 03/01/17 18:29 Atorvastatin Calcium (Lipitor Tab) 40 mg QPM PO 01/30/17 21:00 03/01/17 20:59 02/05/17 21:14 40 MG Buspirone HCl (BusPAR TAB) 15 mg TID PO 01/30/17 21:00 03/01/17 20:59 02/06/17 08:24 15 MG Carbidopa/Levodopa (Sinemet 25/ 100MG Tab) 1 tab TID PO 01/30/17 21:00 03/01/17 20:59 02/06/17 08:25 1 TAB Gabapentin (Neurontin Tab) 600 mg TID PO 01/30/17 21:00 03/01/17 20:59 02/06/17 08:25 600 MG Lamotrigine (Lamictal Tab) 200 mg BID PO 01/30/17 21:00 03/01/17 20:59 02/06/17 08:27 200 MG Levothyroxine Sodium (Synthroid Tab) 50 mcg DAILYBB PO 01/31/17 06:30 03/02/17 06:29 02/05/17 06:26 50 MCG Lidocaine (Lidoderm Patch 5%) 1 patch QAM TD 01/31/17 09:00 03/02/17 08:59 01/31/17 09:32 1 PATCH Lorazepam (Ativan Tab) 0.5 mg Q8 PRN PO 01/30/17 18:30 03/01/17 18:29 02/01/17 08:48 0.5 MG Losartan Potassium (coZAAR TAB) 100 mg DAILY PO 01/31/17 09:00 03/02/17 08:59 02/06/17 08:26 100 MG Metoprolol Succinate (Toprol Xl Tab) 200 mg DAILY PO 01/31/17 09:00 03/02/17 08:59 02/04/17 07:52 200 MG Multivitamins (Multivitamin Tab) 1 tab QAM PO 01/31/17 09:00 03/02/17 08:59 02/06/17 08:24 1 TAB Polyethylene (Miralax Powder Packet) 17 gm DAILY PRN PO 01/30/17 18:30 03/01/17 18:29 Ropinirole HCl (Requip Tab) 2 mg HS PO 01/30/17 21:00 03/01/17 20:59 02/05/17 21:14 2 MG Amlodipine Besylate (Norvasc Tab) 10 mg QAM PO 01/31/17 09:00 03/02/17 08:59 02/06/17 08:27 10 MG Trazodone HCl (Desyrel Tab) 150 mg HS PO 01/30/17 21:00 03/01/17 20:59 02/05/17 21:13 150 MG Miscellaneous (Remove Lidoderm Patch) 1 ea DAILY@21 N/A 01/30/17 21:00 03/01/17 20:59 02/05/17 21:13 1 EA Potassium Chloride/Sodium Chloride 1,000 ml @ 100 mls/hr Q10H IV 01/30/17 19:00 03/01/17 18:34 02/06/17 00:51 100 MLS/HR Morphine Sulfate (MoRPHine SULFATE INJ) 2 mg ONE PRN IV 01/30/17 20:45 02/13/17 20:44 01/30/17 21:03 2 MG Pantoprazole Sodium 40 mg/ Syringe 10 ml @ 5 mls/min BID@0900,2100 IV 01/31/17 21:00 03/02/17 20:59 02/06/17 08:30 5 MLS/MIN Amoxicillin (Amoxil Cap) 1,000 mg BID PO 02/02/17 09:00 02/12/17 08:59 02/06/17 08:25 1,000 MG Clarithromycin (Biaxin Tab) 500 mg Q12 PO 02/02/17 09:00 02/12/17 08:59 02/06/17 08:26 500 MG Heparin Sodium (Porcine) (Heparin Sq 5000 Unit/0.5ml) 5,000 unit Q8 SQ 02/02/17 22:00 03/04/17 21:59 02/05/17 14:13 5,000 UNIT Diclofenac Sodium (Voltaren 1% Top Gel) 1 appln BID EXT 02/03/17 21:00 02/06/17 20:00 02/06/17 08:24 1 APPLN Risperidone (Risperdal Tab) 3 mg PM PO 02/05/17 21:00 03/07/17 20:59 02/05/17 21:14 3 MG Objective Vital Signs Date Time Temp Pulse Resp B/P (MAP) Pulse Ox O2 Delivery O2 Flow Rate FiO2 02/06/17 08:00 92 Room Air 02/06/17 07:09 36.3 55 16 111/73 (86) 92 Room Air 02/06/17 00:17 36.6 56 16 112/68 (83) 96 Room Air 02/06/17 00:00 Room Air 02/05/17 20:00 Room Air 02/05/17 15:44 36.5 50 18 108/68 (81) 96 Room Air 02/05/17 15:30 Room Air Physical Exam Notes: Patient did not give permission for a physical examination Laboratory Results Last 24 Hours Test 02/06/17 05:38 Sodium Level 143 mmol/L Potassium Level 4.1 mmol/L Chloride Level 109 mmol/L Carbon Dioxide Level 27 mmol/L Anion Gap 7.0 mmol/L Blood Urea Nitrogen 10 mg/dl Creatinine 1.20 mg/dl Est Creatinine Clear Calc Drug Dose 59.3 ml/min Estimated GFR () 70.1 Estimated GFR (Non- 60.5 BUN/Creatinine Ratio 7.9 Random Glucose 91 mg/dl Calcium Level 8.7 mg/dl Assessment and Plan Mr. Stiles is a 71 y/o male who was a direct admission for progressive dysphagia and 21 lbs weight loss x 1 month. EGD with duodenal ulcerations with H. pylori infection Dysphagia/Weight Loss: - Barium swallow - tracheal aspiration -- Speech evaluatin - pureed diet with nectar thick liquids - EGD - duodenal ulceration and H. pylori - placed on triple therapy - Amoxicillin 1 g BID, Clarithromycin 500 mg BID, and PPI -- Will keep PPI by IV as patient does intermittently refuse oral meds - Will hold further IVFs and monitor intake prior to D/C - GI following - appreciate recommendations and continue monitoring Lower Abdominal Pain: IMPROVED - Heating pad and stool softener Bipolar II Disorder and General Anxiety D/O: - Psychiatry following - does have H/O suicide attempt with overdose and H/O inpatient psychiatry admissions - Buspar 15 mg TID - Lamictal 200 mg BID - Risperdal 3 mg HS and Trazodone 150 mg HS UTI - Staph Epidermis: - Coverage per H. pylori treatement HTN: - Amlodipine 10 mg daily, Losartan 100 mg daily, Toprol XL 200 mg daily Parkinsons: - Sinemet 1 tab TID DVT Prophylaxis: Heparin Code Status: FULL RESUSCITATION Disposition: - Awaiting facility acceptance; medically optimal for D/C when arrangements made - GI recommendation for H. pylori recheck in [address] [facility] stay due to: other (awaiting placement) Discharge planning: detention facility
[2017-02-06 16:01] VITALS: BP 100/63; PULSE 63; TEMP 36.3; O2SAT 92
[2017-02-06] MEDS: LORAZEPAM 0.5 MG TAB PO PRN (16:38)
[2017-02-06] MEDS: RISPERIDONE 3 MG TAB PO SCH (21:54)
[2017-02-06] MEDS: ROPINIROLE HCL 1 MG TAB PO SCH (21:54)
[2017-02-06] MEDS: PANTOprazole SOD 40 MG TAB PO SCH (21:54)
[2017-02-06] MEDS: TRAZODONE HCL 100 MG TAB PO SCH (21:55)
[2017-02-06] MEDS: ATORVASTATIN 40 MG TAB PO SCH (22:00)
[2017-02-07] VITALS (7 sets, daily range): BP systolic 93–107; BP diastolic 59–67; PULSE 56–60; TEMP 36.7–37; O2SAT 90–96
[2017-02-07] MEDS: LEVOTHYROXINE 50 MCG TAB PO SCH (06:05)
[2017-02-07] MEDS: HEPARIN SOD 5000 UNIT/0.5 ML CARP SQ SCH ×3 (06:07→21:35)
[2017-02-07] MEDS: LOSARTAN POTASSIUM 50 MG TAB PO SCH (08:02)
[2017-02-07] MEDS: AMLODIPINE BESYLATE 5 MG TAB PO SCH (08:02)
[2017-02-07] MEDS: GABAPENTIN 600 MG TAB PO SCH ×3 (08:03→21:29)
[2017-02-07] MEDS: MULTIVITAMIN TAB PO SCH (08:03)
[2017-02-07] MEDS: CARBIDOPA/LEVODOPA 25/100MG TAB PO SCH ×3 (08:03→21:28)
[2017-02-07] MEDS: CLARITHROMYCIN 500 MG TAB PO SCH ×2 (08:03→21:27)
[2017-02-07] MEDS: BusPIRone 15 MG TAB PO SCH ×3 (08:03→21:29)
[2017-02-07] MEDS: PANTOprazole SOD 40 MG TAB PO SCH ×2 (08:04→21:29)
[2017-02-07] MEDS: AMOXICILLIN 500 MG CAP PO SCH ×2 (08:04→21:26)
[2017-02-07] MEDS: METOPROLOL SUCC 50MG EXT REL TAB PO SCH (08:04)
[2017-02-07] MEDS: LIDODERM (LIDOCAINE) PATCH 5% TD SCH (08:11)
--- NOTE | 2017-02-07 13:50 | Hospitalist Progress Note ---
Hospitalist Progress Note Date of Service Feb 07, 2017. Subjective Pt evaluation today including: conversation w/ patient, physical exam, chart review, lab review, review of studies, review of inpatient medication list Patient seen and evaluated. No acute events overnight. Patient is more cooperative today. Very flat affect with no eye contact. Mumbles but answers questions and follows commands. Did drink some thickened water while at bedside. Didn't like the thickened quality but continued to take 4 more drinks of it. Discussed the plan and awaiting some rehab and patient in agreement. Asked permission to update and permission given. Was unable to talk to her yesterday as the phone rang and clicked off without being able to leave a voicemail. Constitutional: No fever, No chills Respiratory: No shortness of breath Cardiovascular: No chest pain Abdomen: No pain, No nausea, No vomiting Musculoskeletal: + problem reported ("feet pain" - wouldn't elaborate more) Medications Current Inpatient Medications Medications (Trade) Dose Ordered Sig/Catarina Route Start Time Stop Time Status Last Admin Dose Admin Acetaminophen (Tylenol Tab) 650 mg Q4H PRN PO 01/30/17 18:30 03/01/17 18:29 Atorvastatin Calcium (Lipitor Tab) 40 mg QPM PO 01/30/17 21:00 03/01/17 20:59 02/06/17 22:00 40 MG Buspirone HCl (BusPAR TAB) 15 mg TID PO 01/30/17 21:00 03/01/17 20:59 02/07/17 08:03 15 MG Carbidopa/Levodopa (Sinemet 25/ 100MG Tab) 1 tab TID PO 01/30/17 21:00 03/01/17 20:59 02/07/17 08:03 1 TAB Gabapentin (Neurontin Tab) 600 mg TID PO 01/30/17 21:00 03/01/17 20:59 02/07/17 08:03 600 MG Lamotrigine (Lamictal Tab) 200 mg BID PO 01/30/17 21:00 03/01/17 20:59 02/07/17 08:03 200 MG Levothyroxine Sodium (Synthroid Tab) 50 mcg DAILYBB PO 01/31/17 06:30 03/02/17 06:29 02/07/17 06:05 50 MCG Lidocaine (Lidoderm Patch 5%) 1 patch QAM TD 01/31/17 09:00 03/02/17 08:59 01/31/17 09:32 1 PATCH Lorazepam (Ativan Tab) 0.5 mg Q8 PRN PO 01/30/17 18:30 03/01/17 18:29 02/06/17 16:38 0.5 MG Losartan Potassium (coZAAR TAB) 100 mg DAILY PO 01/31/17 09:00 03/02/17 08:59 02/07/17 08:02 100 MG Metoprolol Succinate (Toprol Xl Tab) 200 mg DAILY PO 01/31/17 09:00 03/02/17 08:59 02/04/17 07:52 200 MG Multivitamins (Multivitamin Tab) 1 tab QAM PO 01/31/17 09:00 03/02/17 08:59 02/07/17 08:03 1 TAB Polyethylene (Miralax Powder Packet) 17 gm DAILY PRN PO 01/30/17 18:30 03/01/17 18:29 Ropinirole HCl (Requip Tab) 2 mg HS PO 01/30/17 21:00 03/01/17 20:59 02/06/17 21:54 2 MG Amlodipine Besylate (Norvasc Tab) 10 mg QAM PO 01/31/17 09:00 03/02/17 08:59 02/07/17 08:02 10 MG Trazodone HCl (Desyrel Tab) 150 mg HS PO 01/30/17 21:00 03/01/17 20:59 02/06/17 21:55 150 MG Miscellaneous (Remove Lidoderm Patch) 1 ea DAILY@21 N/A 01/30/17 21:00 03/01/17 20:59 02/05/17 21:13 1 EA Morphine Sulfate (MoRPHine SULFATE INJ) 2 mg ONE PRN IV 01/30/17 20:45 02/13/17 20:44 01/30/17 21:03 2 MG Amoxicillin (Amoxil Cap) 1,000 mg BID PO 02/02/17 09:00 02/12/17 08:59 02/07/17 08:04 1,000 MG Clarithromycin (Biaxin Tab) 500 mg Q12 PO 02/02/17 09:00 02/12/17 08:59 02/07/17 08:03 500 MG Heparin Sodium (Porcine) (Heparin Sq 5000 Unit/0.5ml) 5,000 unit Q8 SQ 02/02/17 22:00 03/04/17 21:59 02/07/17 06:07 5,000 UNIT Risperidone (Risperdal Tab) 3 mg PM PO 02/05/17 21:00 03/07/17 20:59 02/06/17 21:54 3 MG Pantoprazole Sodium (Protonix Tab) 40 mg BID PO 02/06/17 21:00 03/08/17 20:59 02/07/17 08:04 40 MG Objective Vital Signs Date Time Temp Pulse Resp B/P (MAP) Pulse Ox O2 Delivery O2 Flow Rate FiO2 02/07/17 10:28 96 Room Air 02/07/17 09:09 96 Room Air 02/07/17 08:10 Room Air 02/07/17 07:59 37.0 56 18 98/62 (74) 91 Room Air 02/07/17 00:46 36.8 56 20 107/67 (80) 91 Room Air 02/07/17 00:00 Room Air 02/06/17 16:01 36.3 63 18 100/63 (75) 92 Room Air 02/06/17 16:00 Room Air Physical Exam General Appearance: no apparent distress, + pertinent finding (flat affect; no eye contact; voice mumbles) ENT: hearing grossly normal Neck: supple, no JVD, trachea midline Respiratory/Chest: lungs clear, normal breath sounds, no respiratory distress, no accessory muscle use Cardiovascular: regular rate, rhythm, no gallop, no murmur Abdomen: normal bowel sounds, non tender, soft Extremities: no pedal edema, no calf tenderness Neurologic/Psychiatric: alert Skin: normal color, warm/dry Assessment and Plan Mr. Stiles is a 71 y/o male who was a direct admission for progressive dysphagia and 21 lbs weight loss x 1 month. EGD with duodenal ulcerations with H. pylori infection Dysphagia/Weight Loss: - Barium swallow - tracheal aspiration -- Speech evaluation - pureed diet with nectar thick liquids - EGD - duodenal ulceration and H. pylori - placed on triple therapy - Amoxicillin 1 g BID, Clarithromycin 500 mg BID, and PPI - DAY #6/14 with PPI indefinitely - Will hold further IVFs and monitor intake prior to D/C - GI following - appreciate recommendations and continue monitoring Lower Abdominal Pain: IMPROVED - Heating pad and stool softener Bipolar II Disorder and General Anxiety D/O: - Psychiatry following - does have H/O suicide attempt with overdose and H/O inpatient psychiatry admissions - Buspar 15 mg TID - Lamictal 200 mg BID - Risperdal 3 mg HS and Trazodone 150 mg HS UTI - Staph Epidermis: - Coverage per H. pylori treatment HTN: - Amlodipine 10 mg daily, Losartan 100 mg daily, Toprol XL 200 mg daily Parkinsons: - Sinemet 1 tab TID DVT Prophylaxis: Heparin Code Status: FULL RESUSCITATION Disposition: - Awaiting facility acceptance; medically optimal for D/C when arrangements made - GI recommendation for H. pylori recheck in 8 weeks Continued [facility] stay due to: home environment unsafe for pt Discharge planning: fdc facility
[2017-02-07] MEDS: ATORVASTATIN 40 MG TAB PO SCH (21:27)
[2017-02-07] MEDS: ROPINIROLE HCL 1 MG TAB PO SCH (21:29)
[2017-02-07] MEDS: RISPERIDONE 3 MG TAB PO SCH (21:30)
[2017-02-07] MEDS: TRAZODONE HCL 100 MG TAB PO SCH (22:12)
[2017-02-07] MEDS: LORAZEPAM 0.5 MG TAB PO PRN (23:50)
[2017-02-08] MEDS: HEPARIN SOD 5000 UNIT/0.5 ML CARP SQ SCH ×3 (05:55→20:34)
[2017-02-08] MEDS: LEVOTHYROXINE 50 MCG TAB PO SCH (05:55)
[2017-02-08 07:16] VITALS: BP 110/63; PULSE 60; TEMP 36.5; O2SAT 90
[2017-02-08] MEDS: PANTOprazole SOD 40 MG TAB PO SCH ×2 (07:53→20:27)
[2017-02-08] MEDS: METOPROLOL SUCC 50MG EXT REL TAB PO SCH (07:53)
[2017-02-08] MEDS: CARBIDOPA/LEVODOPA 25/100MG TAB PO SCH ×3 (07:53→20:29)
[2017-02-08] MEDS: BusPIRone 15 MG TAB PO SCH ×3 (07:54→20:27)
[2017-02-08] MEDS: GABAPENTIN 600 MG TAB PO SCH ×3 (07:54→20:28)
[2017-02-08] MEDS: AMLODIPINE BESYLATE 5 MG TAB PO SCH (07:54)
[2017-02-08] MEDS: MULTIVITAMIN TAB PO SCH (07:54)
[2017-02-08] MEDS: LOSARTAN POTASSIUM 50 MG TAB PO SCH (07:54)
[2017-02-08] MEDS: CLARITHROMYCIN 500 MG TAB PO SCH ×2 (07:55→20:30)
[2017-02-08] MEDS: AMOXICILLIN 500 MG CAP PO SCH ×2 (07:55→20:27)
[2017-02-08] MEDS: LIDODERM (LIDOCAINE) PATCH 5% TD SCH (07:55)
--- NOTE | 2017-02-08 14:02 | Hospitalist Progress Note ---
Hospitalist Progress Note Date of Service Feb 08, 2017. Subjective Pt evaluation today including: conversation w/ patient, physical exam, chart review, lab review, review of studies, review of inpatient medication list Patient seen and evaluated. No acute events overnight. Patient awake and resting in bed with lights out. Talks with a low-pitched, mumbled voice. Flat affect Verbalizes no needs at this time. Does have chronic pins/needle sensation of feet that can be bothersome to him. Reiterated the plan of finding a SNF and verbalized understanding. Mood is depressed but stable, currently without agitation. Additional Comments: Limited ROS do only short conversations. Denies overt pain but reports pins/ needle sensation of bilateral feet. Denies CP, SOB, N/V, abdominal pain. Objective Vital Signs Date Time Temp Pulse Resp B/P (MAP) Pulse Ox O2 Delivery O2 Flow Rate FiO2 02/08/17 08:30 Room Air 02/08/17 07:16 36.5 60 18 110/63 (79) 90 Room Air 02/08/17 00:00 Room Air 02/07/17 23:49 36.7 60 18 104/64 (77) 95 Room Air 02/07/17 20:00 90 Room Air 02/07/17 16:00 Room Air 02/07/17 15:46 36.7 60 18 93/59 (70) 90 Room Air Physical Exam General Appearance: no apparent distress ENT: hearing grossly normal Neck: supple, no JVD, trachea midline Respiratory/Chest: lungs clear, normal breath sounds, no respiratory distress, no accessory muscle use Cardiovascular: regular rate, rhythm, no gallop, no murmur Abdomen: normal bowel sounds, non tender, soft Neurologic/Psychiatric: alert Skin: normal color, warm/dry Assessment and Plan Mr. Stiles is a 71 y/o male who was a direct admission for progressive dysphagia and 21 lbs weight loss x 1 month. EGD with duodenal ulcerations with H. pylori infection Dysphagia/Weight Loss: Aspiration and H. Pylori and Duodenal Ulcerations - Speech evaluation - pureed diet with nectar thick liquids - EGD - duodenal ulceration and H. pylori - placed on triple therapy - Amoxicillin 1 g BID, Clarithromycin 500 mg BID, and PPI - DAY #7/14 with PPI indefinitely - GI following - appreciate recommendations and continue monitoring Lower Abdominal Pain: IMPROVED - Heating pad and stool softener Bipolar II Disorder and General Anxiety D/O: - Psychiatry following - does have H/O suicide attempt with overdose and H/O inpatient psychiatry admissions - Buspar 15 mg TID - Lamictal 200 mg BID - Risperdal 3 mg HS and Trazodone 150 mg HS UTI - Staph Epidermis: - Coverage per H. pylori treatment HTN: - Amlodipine 10 mg daily, Losartan 100 mg daily, Toprol XL 200 mg daily Parkinsons: - Sinemet 1 tab TID DVT Prophylaxis: Heparin Code Status: FULL RESUSCITATION Disposition: - Awaiting facility acceptance; medically optimal for D/C when arrangements made - more referrals placed - GI recommendation for H. pylori recheck in 8 weeks Continued [facility] stay due to: home environment unsafe for pt Discharge planning: snf facility
[2017-02-08 14:23] VITALS: BP 81/56; PULSE 55; O2SAT 88
[2017-02-08 14:52] VITALS: BP 91/56; PULSE 54; TEMP 36.3; O2SAT 93
[2017-02-08] MEDS: LORAZEPAM 0.5 MG TAB PO PRN ×2 (15:32→23:50)
[2017-02-08 20:16] VITALS: O2SAT 90
[2017-02-08] MEDS: ROPINIROLE HCL 1 MG TAB PO SCH (20:27)
[2017-02-08] MEDS: ATORVASTATIN 40 MG TAB PO SCH (20:29)
[2017-02-08] MEDS: TRAZODONE HCL 100 MG TAB PO SCH (20:31)
[2017-02-08] MEDS: RISPERIDONE 3 MG TAB PO SCH (20:31)
[2017-02-09] VITALS (7 sets, daily range): BP systolic 92–114; BP diastolic 56–71; PULSE 49–84; TEMP 36.5–37; O2SAT 90–97
[2017-02-09] MEDS: LEVOTHYROXINE 50 MCG TAB PO SCH (06:03)
[2017-02-09] MEDS: HEPARIN SOD 5000 UNIT/0.5 ML CARP SQ SCH ×2 (06:11→13:30)
[2017-02-09] MEDS: METOPROLOL SUCC 50MG EXT REL TAB PO SCH (08:01)
[2017-02-09] MEDS: PANTOprazole SOD 40 MG TAB PO SCH (08:10)
[2017-02-09] MEDS: AMLODIPINE BESYLATE 5 MG TAB PO SCH (08:10)
[2017-02-09] MEDS: CLARITHROMYCIN 500 MG TAB PO SCH (08:11)
[2017-02-09] MEDS: GABAPENTIN 600 MG TAB PO SCH ×2 (08:11→13:29)
[2017-02-09] MEDS: CARBIDOPA/LEVODOPA 25/100MG TAB PO SCH ×2 (08:11→13:30)
[2017-02-09] MEDS: MULTIVITAMIN TAB PO SCH (08:11)
[2017-02-09] MEDS: BusPIRone 15 MG TAB PO SCH ×2 (08:11→13:29)
[2017-02-09] MEDS: AMOXICILLIN 500 MG CAP PO SCH (08:11)
[2017-02-09] MEDS: LOSARTAN POTASSIUM 50 MG TAB PO SCH (08:12)
[2017-02-09] MEDS: LIDODERM (LIDOCAINE) PATCH 5% TD SCH (08:12)
--- NOTE | 2017-02-09 12:44 | Psychiatric Progress Notes ---
Psychiatric Progress Note Date of Service Feb 09, 2017. Notes ID: Patient reviewed with liaison nurse. Interim progress reviewed. CC: "I'm only anxious andrew I'm here" HPI: undestands he is awaiting placement ROS: unable to complete MSE: appears tired, no cogwheeling, masked facies. Thoughts perseverative. No SI/HI/rachel. Imp: same as initial consult Plan: no additional recs at this time, remains psychiatrically stable for recommended level of nursing care placement. Liaison to adjust appt date with [facility] as needed.
[2017-02-09] MEDS ORDERED: ATV5 PO (13:14)
[2017-02-09] MEDS ORDERED: BXN500 PO (13:14)
[2017-02-09] MEDS ORDERED: RSP3 PO (13:14)
[2017-02-09] MEDS ORDERED: OXYC-57 PO (13:14)
[2017-02-09] MEDS ORDERED: AMX500 PO (13:14)
[2017-02-09] MEDS ORDERED: PRT40 PO (13:14)
--- NOTE | 2017-02-09 13:22 | Discharge Instructions ---
Discharge Instructions Date of Service Feb 09, 2017. Admission Reason for Admission: Dusphasia,Weight Loss Discharge Discharge Diagnosis / Problem: Dysphagia and Weight Loss; Bipolar Disorder Discharge Goals Goal(s): Decrease discomfort, Improve function, Increase independence Activity Recommendations Activity Level: Assistance Required Therapies: Physical Therapy, Occupational Therapy, Speech Therapy . Additional Information Patient informed of condition: Yes Advance Directives: No DNR: No Level of Care: Skilled Communicable Disease: No Prognosis: Stable Instructions / Follow-Up Instructions / Follow-Up Mr. Stiles is a 71 y/o male who was a direct admission for progressive dysphagia and 21 lbs weight loss x 1 month. EGD with duodenal ulcerations with H. pylori infection Dysphagia/Weight Loss: Aspiration and H. Pylori and Duodenal Ulcerations - Speech evaluation - pureed diet with nectar thick liquids - EGD - duodenal ulceration and H. pylori - placed on triple therapy - Amoxicillin 1 g BID, Clarithromycin 500 mg BID, and PPI - DAY #8/14 with PPI indefinitely Lower Abdominal Pain: RESOLVED - Heating pad and stool softener Bipolar II Disorder and General Anxiety D/O: - Psychiatry followed - does have H/O suicide attempt with overdose and H/O inpatient psychiatry admissions - Buspar 15 mg TID - Lamictal 200 mg BID - Risperdal 3 mg HS and Trazodone 150 mg HS - Follows with Dr. Alvares at [facility] - to have an appointment established for later this month UTI - Staph Epidermis: - Coverage per H. pylori treatment HTN: - Amlodipine 10 mg daily, Losartan 100 mg daily, Toprol XL 200 mg daily Parkinsons: - Sinemet 1 tab TID Code Status: FULL RESUSCITATION Disposition: - GI recommendation for H. pylori recheck in 8 weeks Current Hospital Diet Patient's current hospital diet: Diabetes Type 2 Diet, AHA Diet (Heart Healthy) Discharge Diet Recommended Diet: AHA Diet (Heart Healthy), Diabetes Type 2 Diet Procedures Procedures Performed: BX GASTRIC ANTRUM Pending Studies Studies pending at discharge: no Laboratory Results Hemoglobin A1c Test 01/11/17 12:30 Range/Units Estimated Average Glucose 117 mg/dl Hemoglobin A1c 5.7 H 4.5-5.6 % Medical Emergencies . Who to Call and When: Medical Emergencies: If at any time you feel your situation is an emergency, please call 911 immediately. . Non-Emergent Contact Non-Emergency issues call your: Primary Care Provider Call Non-Emergent contact if: you have a fever, your pain is concerning you, you have any medication questions . . "Provider Documentation" section prepared by Jazmyne Giron. . Core Measure Problem Core Measures: None
--- NOTE | 2017-02-09 13:49 | Discharge Summary ---
Discharge Summary Date of Service Feb 09, 2017. Discharge Summary Admission Date: Jan 30, 2017 at 16:43 Discharge Date: Feb 09, 2017 Discharge Disposition: retirement facility Principal Diagnosis: H. Pylori with Non-Bleeding Duodenal Ulcers; Dysphagia Problems/Secondary Diagnoses: 1. Dysphagia 2. Weight Loss - 21 lbs x 1 month 3. Non-Bleeding Duodenal Ulcerations 4. Bipolar Disorder 5. Generalized Anxiety Disorder 6. HTN 7. Parkinson's with Dementia Immunizations: Have You Had Influenza Vaccine: Unknown History of Tetanus Vaccine?: Unknown History of Pneumococcal: Unknown History of Hepatitis B Vaccine: Unknown Procedures: ABD/PELVIS IV AND ORAL CONT FINDINGS: Streak artifact is present secondary to positioning of patient's arms. Bilateral pleural plaques at the lung bases suggest prior asbestos exposure. Subsegmental bibasilar atelectasis is noted. No definite pneumoperitoneum identified. The imaged inferior cardiac chambers demonstrate coronary arterial disease. There is focal wall thickening/redundancy or adenomyomatosis of the fundal gallbladder. The liver, spleen, pancreas and right adrenal gland are unremarkable. There is a 1.5 x 1.0 cm soft tissue attenuating left adrenal nodule which was low attenuating on comparison noncontrast study compatible with adenoma, unchanged in size. Multiple left-sided renal calculi are seen with 6 x 8 x 9 mm calculus of the left ureteropelvic junction causing mild left-sided hydronephrosis. No right-sided renal calculi. Urinary bladder is mildly distended. Coarse parenchymal calcifications involve the central prostate. There is moderate atherosclerotic plaquing of the abdominal aorta and its branches. Note is made of a retroaortic left renal vein. No bulky adenopathy identified. There is mild wall thickening of the proximal duodenum which is nonspecific. Colonic diverticulosis noted without acute diverticulitis. The appendix appears normal. Soft tissues are unremarkable. Severe multilevel discogenic degenerative changes and facet arthropathy is noted within the lower lumbar spine. There is convex right curvature of the lumbar spine. IMPRESSION: 1. 6 x 8 x 9 mm calculus of the left ureteropelvic junction is present causing mild hydronephrosis. Multiple additional left-sided nephrolithiasis redemonstrated. 2. Colonic diverticulosis without diverticulitis. 3. Mild nonspecific wall thickening of the duodenum may correlate with patient's reported history of duodenal ulcers. This could be correlated with endoscopy. No pneumoperitoneum. 4. Probable adenomyomatosis of the fundal gallbladder. 5. Additional incidental findings as above. CT OF THE CHEST WITH IV CONTRAST FINDINGS: Thyroid: Imaged portions of the thyroid gland are normal in appearance. Thoracic aorta: The ascending thoracic aorta measures 37 mm in diameter. Pulmonary vasculature: The pulmonary trunk is normal in caliber. There are no central filling defects identified to suggest pulmonary embolus. Note that this examination was not protocoled for the evaluation of pulmonary emboli. HEART: There are prominent coronary artery calcifications. Lungs and pleural spaces: There are dependent bilateral atelectatic changes. There is no lobar consolidation. There are bilateral pleural calcifications. Mediastinum: There are mildly enlarged mediastinal lymph nodes, relatively similar to the preceding study. Deidra: There are mildly enlarged right hilar lymph nodes. Axilla: Clear. Upper abdomen: There is a 17 mm left adrenal gland nodule. On the prior noncontrast study, this had characteristics consistent with adenoma. There is a partially visualized mid pole left renal column of Aung versus subtle renal mass. Skeletal structures: There are no lytic or blastic osseous lesions. IMPRESSION: 1. Mild mediastinal and right hilar lymphadenopathy 2. Coronary artery calcifications 3. Bilateral calcified pleural plaques and dependent atelectatic change 4. No evidence of focal pulmonary consolidation 5. Left adrenal adenoma MODIFIED BARIUM SWALLOW FINDINGS: Several episodes of tracheal aspiration were noted with thin liquids by spoon. There was delayed initiation of the swallowing mechanism with premature spillage. There was no aspiration with honey thick liquids, pudding or crackers with paste. Residuals were noted within the piriform sinuses and vallecula. IMPRESSION: 1. Several episodes of tracheal aspiration with thin liquids by spoon. Amount of aspiration was greater than shown on exam of January 11, 2017. 2. Full recommendations by speech pathology to follow. EGD: - Normal esophagus. - Small hiatus hernia. - Gastritis. Biopsied. - Multiple non-bleeding duodenal ulcers with no stigmata of bleeding. Consultations: 1. Gastroenterology 2. Psychiatry 3. PT/OT Medication Reconciliation New Medications: Amoxicillin (Amoxicillin) 500 Mg Cap 1000 MG PO BID for 6 Days, #24 CAP Start on 02/10 Clarithromycin (Clarithromycin) 500 Mg Tab 500 MG PO Q12 for 6 Days, #12 TAB Start on 02/10 Pantoprazole (Pantoprazole Sodium) 40 Mg Tab 40 MG PO BID for 30 Days, #60 TAB Risperidone (Risperidone) 3 Mg Tab 3 MG PO PM for 14 Days, #14 TAB Continued Medications: Acetaminophen Tab (Tylenol) 325 Mg Tab 650 MG PO Q4H PRN for Pain or Fever, #15 TAB Amlodipine Besylate (Amlodipine Besylate) 10 Mg Tab 1 TAB PO DAILY Atorvastatin (Lipitor) 40 Mg Tab 40 MG PO QPM Buspirone HCl (Buspirone HCl) 15 Mg Tab 15 MG PO TID Carbidopa/Levodopa (Sinemet 25MG/100MG) Tab 1 TAB PO TID Docusate Sodium (Docusate Sodium) 100 Mg Cap 100 MG PO BID for 30 Days, #60 CAP Gabapentin (Gabapentin) 300 Mg Cap 600 MG PO TID Lamotrigine (Lamictal) 200 Mg Tab 200 MG PO BID, TAB Levothyroxine Sodium (Synthroid) 50 Mcg Tab 50 MCG PO QAM Lidocaine (Lidocaine) 1 Patch Tdsy 1 PATCH TD QAM for 14 Days, #14 PATCH Lorazepam (Lorazepam) 0.5 Mg Tab 0.5 MG PO Q8 PRN for Anxiety for 3 Days, #9 TAB (This prescription has been renewed) Losartan Potassium (Cozaar) 100 Mg Tab 1 TAB PO DAILY Melatonin (Melatonin) 3 Mg Cap 3 MG PO HS Metoprolol Succinate (Toprolxl (Toprol-Xl) 200 Mg Tabcr 200 MG PO DAILY, TAB Multivitamin (Multivitamin) Tab 1 TAB PO QAM Oxycodone/Acetaminophen 5MG/325MG (Percocet 5MG/325MG) Tab 1 TAB PO Q12 PRN for pain for 3 Days, #6 TAB (This prescription has been renewed ) PAIN Polyethylene (Miralax) 17 Gm Pow 17 GM PO DAILY PRN for Constipation for 30 Days, #30 EA Ropinirole (Requip) 2 Mg Tab 2 MG PO HS, TAB Trazodone HCl (Trazodone HCl) 150 Mg Tab 1 TAB PO DAILY Discontinued Medications: Risperidone (Risperdal) 2 Mg Tab 2 MG PO QAM, TAB Risperidone (Risperdal) 2 Mg Tab 4 MG PO QPM, TAB Discharge Exam Review of Systems: Constitutional: No fever, No chills Respiratory: No shortness of breath Cardiovascular: No chest pain Abdomen: No pain, No nausea, No vomiting Musculoskeletal: + problem reported (neuropathic pain bilateral feet) Genitourinary - Male: No dysuria Psychiatric: + anxiety Physical Exam: General Appearance: no apparent distress, + pertinent finding ( predominantly flat affect with a little more expression today and eye contact) Eyes: sclerae normal ENT: hearing grossly normal Neck: supple, no JVD, trachea midline Respiratory/Chest: lungs clear, normal breath sounds, no respiratory distress, no accessory muscle use Cardiovascular: regular rate, rhythm, no gallop, no murmur Abdomen / GI: normal bowel sounds, non tender, soft Extremities: no pedal edema Neurologic/Psychiatric: alert Skin: normal color, warm/dry Hospital Course ADMISSION: The patient is a 71-year-old male referred for direct admission from outpatient office due to progressive dysphagia and 21 pound weight loss over the past month. The patient has been too clear for the emergency department 3 times and not [place] once during this interval time with progressive symptoms. He has a known history of dementia, and therefore his history of present illness somewhat limited. The patient reports that he feels very anxious. HOSPITAL COURSE: Mr. Stiles was admitted for H. Pylori with Non-Bleeding Duodenal Ulcerations and Dysphagia with Weight Loss. EGD was performed by Dr. Mosley that showed non-bleeding gastric ulcers and gastritis with biopsy confirmed H. pylori. He is to finish a 14 day course of Amoxicillin 1 g BID and Clarithromycin 500 mg BID with H. pylori retest in 8 weeks. He was initiated on Protonix 40 mg BID with plans to continue this indefinitely. Video swallow and speech pathology confirmed presence of aspiration and recommended a pureed diet with nectar thick liquids. He was evaluated by psychiatry given his Bipolar Disorder and General Anxiety. He follow with Dr. Alvares and an appointment was established. Patient did experience extreme depression with a labile mood initially. He was easily agitated, made no eye contact, minimal conversation, and flat affect. On day of discharge, patient is making eye contact and has more animation to him. Discharge was delayed related to difficulty securing SNF placement. [facility] process completed and he will be D/Cd to [facility]. Total Time Spent: Greater than 30 minutes This includes examination of the patient, discharge planning, medication reconciliation, and communication with other providers. Discharge Instructions Please refer to the electronic Patient Visit Report (Discharge Instructions) for additional information. Additional Copies To Rich Narvaez M.D.
== END 2017-02-09 15:00 | DRG 372 ==
LOC: C.MS2W 16:43 → UNDOADMIN 16:46
PROVIDERS: ADMIT Hospitalist; ATTEND Internal Medicine
PROC: 0DB68ZX Excision of Stomach, Via Natural or Artificial Opening Endoscopic, Diagnostic (ICD-10-PCS; principal; 2017-01-31 11:20)
DX: A04.8 Other specified bacterial intestinal infections (principal); N39.0 Urinary tract infection, site not specified; F31.81 Bipolar II disorder; R13.10 Dysphagia, unspecified; G20 Parkinson's disease; K27.9 Peptic ulcer, site unspecified, unspecified as acute or chronic, without hemorrhage or perforation; G52.1 Disorders of glossopharyngeal nerve; F02.80 Dementia in other diseases classified elsewhere, unspecified severity, without behavioral disturbance, psychotic disturbance, mood disturbance, and anxiety; I10 Essential (primary) hypertension; E78.5 Hyperlipidemia, unspecified; E03.9 Hypothyroidism, unspecified; F41.1 Generalized anxiety disorder; G25.81 Restless legs syndrome; Z79.899 Other long term (current) drug therapy; Z87.891 Personal history of nicotine dependence